=== PATIENT | female | born 1970 | race Caucasian/White ===

== ENCOUNTER 2017-04-23 17:20 | Emergency (ER) | payer BC, OTHER ==
[~2017-04-23] VITALS: Ht 162.6 cm; Wt 72.0 kg
[2017-04-23 17:27] VITALS: TEMP 36.9; Ht 162.6 cm; Wt 72.0 kg
[2017-04-23] MEDS ORDERED: AZITHROMYCIN 250 MG TAB PO STA (18:25)
[2017-04-23] MEDS ORDERED: CEFTRIAXONE SOD 350MG/ML 1 GM VIAL IM STA (18:25)
[2017-04-23 18:55] VITALS: BP 107/65; PULSE 73; O2SAT 99
--- NOTE | 2017-04-23 20:39 | EMERGENCY ROOM VISIT NOTE ---
History Report prepared by Fabrizio: Junie So Under the Supervision of: Dr. Idris Salazar D.O. 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 The patient was contacted today by her boyfriend. He informed her that his has been having intercourse with him while he is sleeping, possibly transmitting an STD. He has been having burning and discharge over the past week. They last had intercourse last night without a condom. She reports infrequent condom use. She has not had any symptoms herself. She denies any abdominal pain, vaginal discharge, vaginal bleeding, odor, urinary symptoms, headache, fever, chest pain, SOB, nausea, vomiting, or diarrhea. She denies any previous STDs. 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 Review of Systems See HPI for pertinent positives & negatives. A total of 10 systems reviewed and were otherwise negative. Past Medical & Surgical Medical Problems: (1) Migraines (2) Ovarian cyst Surgical Problems: (1) History of tubal ligation (2) S/P wrist surgery Family History FHx: cancer FHx: diabetes Hypertension Social History Smoking Status: Current Every Day Smoker Alcohol Use: none Marital Status: Housing Status: lives with friends Occupation Status: employed Current/Historical Medications No Active Prescriptions or Reported Meds Allergies Coded Allergies: No Known Allergies (Unverified , 06/30/15) Physical Exam Vital Signs Date Time Temp Pulse Resp B/P (MAP) Pulse Ox O2 Delivery O2 Flow Rate FiO2 04/23/17 18:55 73 16 107/65 99 Room Air 04/23/17 17:27 36.9 82 17 124/79 97 Room Air Physical Exam GENERAL: sitting up in bed, alert, well appearing, well nourished, no distress, non-toxic EYE EXAM: normal conjunctiva OROPHARYNX: no exudate, no erythema, lips, buccal mucosa, and tongue normal and mucous membranes are moist NECK: supple, no nuchal rigidity, no adenopathy, non-tender LUNGS: Clear to auscultation. Normal chest wall mechanics HEART: no murmurs, S1 normal and S2 normal ABDOMEN: abdomen soft, non-tender, normo-active bowel sounds, no masses, no rebound or guarding. : Normal external genitalia, normal vaginal mucosa. No cervical discharge. SKIN: no rashes and no bruising UPPER EXTREMITIES: upper extremities are grossly normal. LOWER EXTREMITIES: No pitting edema. NEURO EXAM: Normal sensorium Medical Decision & Procedures Laboratory Results Test 04/23/17 18:15 Date/Time Source Procedure Growth Status 04/23/17 18:15 Cervix Brushings Trichomonas Preparation - Final Complete Laboratory results per my review. Medications Administered Medications (Trade) Dose Ordered Sig/Chinedu Route Start Time Stop Time Status Last Admin Dose Admin Azithromycin (Zithromax Tab) 1,000 mg NOW STAT PO 04/23/17 18:25 04/23/17 18:26 DC 04/23/17 18:51 1,000 MG Ceftriaxone Sodium (Rocephin Im) 250 mg NOW STAT IM 04/23/17 18:25 04/23/17 18:26 DC 04/23/17 18:51 250 MG ED Course ED COURSE: Vital signs were reviewed and showed hypertension. The patients medical record was reviewed The above diagnostic studies were performed and reviewed. ED treatments and interventions as stated above. 1736: The student evaluated the patient at this time. We discussed findings, differentials, and treatment plan. 1755: The patient was evaluated in room A3. A complete history and physical examination was performed. 1825: Rocephin Im 250 mg IM, Azithromycin 1000 mg PO. 1826: Upon reevaluation, the patient is resting comfortably.I discussed my findings with the patient and she understands and agrees with the treatment plan. Based on the patients age, coexisting illnesses, exam and lab findings the decision to treat as an outpatient was made. The patient remained stable while under my care. The patient appeared well at the time of discharge. Medical Decision Differential diagnoses includes but is not limited to appendicitis, diverticulitis, small bowel obstruction, malignancy, hernia, urinary tract infection, torsion, and ectopic , perforation, trauma, infectious. Patient was a 47-year-old female who presents the ER for an STD check as she thinks one of her partners has an STD. She has no complains. No vaginal bleeding or vaginal discharge. Exam is completely benign. Cultures were sent. She preferred to be covered for chlamydia and GC. She was treated with IM Rocephin and oral is a throat. She is discharged follow-up with her PCP. Discussed with Pt concerning signs and symptoms to watch out for. Pt was instructed to follow up with their PCP and discussed with the patient their option to return to the ED at anytime for persistent or worsening symptoms. The appropriate anticipatory guidance and out-patient management, including indications for return to the emergency department, were explained at length to the patient and understood. Medication Reconcilliation Current Medication List: was personally reviewed by me Blood Pressure Screening Patient's blood pressure: Elevated blood pressure Blood pressure disposition: Elevated BP felt to be situational Impression Primary Impression: STD (female) Scribe Attestation The scribe's documentation has been prepared under my direction and personally reviewed by me in its entirety. I confirm that the note above accurately reflects all work, treatment, procedures, and medical decision making performed by me. Departure Information Dispostion Home / Self-Care Prescriptions No Active Prescriptions or Reported Meds Referrals Ro Valdes M.D. (MEDICAL) Forms HOME CARE DOCUMENTATION FORM, IMPORTANT VISIT INFORMATION, WORK / SCHOOL INSTRUCTIONS Patient Instructions Gonorrhea Culture Discharge, My [facility], STD Poss Additional Instructions Please follow up with your primary care doctor which includes any fevers about 100.4, persistent nausea vomiting, vaginal discharge, vaginal bleeding, pain with urination, or any other concerning signs or symptoms from your standpoint.
[2017-04-25 13:32] LABS: CHLAMYDIA TRACH RNA*** NOT DETECTED (NOT DETECTED); GC (NEIS GONORRHOEAE)RNA** NOT DETECTED (NOT DETECTED)
[2017-04-28] MEDS ORDERED: ASPEC325 PO (10:07)
[2017-04-28] MEDS ORDERED: LPT40 PO (10:07)
[2017-04-28] MEDS ORDERED: LPR25 PO (10:07)
[2017-05-23] MEDS ORDERED: ASPCH81X PO (13:07)
[2017-05-23] MEDS ORDERED: ATOR-26 PO (13:09)
[2017-05-23] MEDS ORDERED: NTRGSL/4 UT (13:09)
[2017-05-23] MEDS ORDERED: MULTTAB58 PO (13:09)
[2017-05-23] MEDS ORDERED: ANT25 PO (13:09)
[2017-05-23] MEDS ORDERED: CLOP1TAB15 PO (13:09)
== END 2017-04-23 19:09 | disposition home or self-care (01) ==
LOC: C.EDB 17:21 → C.EDA 19:09
DX: A64 Unspecified sexually transmitted disease (principal); F17.200 Nicotine dependence, unspecified, uncomplicated; Z98.51 Tubal ligation status; Z98.890 Other specified postprocedural states; Z83.3 Family history of diabetes mellitus; Z82.49 Family history of ischemic heart disease and other diseases of the circulatory system

== ENCOUNTER 2017-04-27 18:48 | Inpatient (IN) | payer BC ==
[~2017-04-27] VITALS: Ht 162.6 cm; Wt 77.1 kg
--- NOTE | 2017-04-27 19:37 | DIAGNOSTIC IMAGING REPORT ---
CHEST ONE VIEW PORTABLE CLINICAL HISTORY: 47 years-old Female presenting with chest pain. TECHNIQUE: Portable upright AP view of the chest was obtained. COMPARISON: 08/31/2015. FINDINGS: Cardiomediastinal silhouette normal. Lungs and pleural spaces clear. Osseous structures normal. Upper abdomen normal. IMPRESSION: 1. No acute cardiopulmonary disease. Electronically signed by: Sampson Glover M.D. 04/27/2017 7:36 PM Dictated Date/Time: 04/27/2017 7:35 PM
[2017-04-27 19:41] LABS: ALB/GLOB RATIO 0.9 (0.9-2); ALKALINE PHOSPHATASE 58 U/L (45-117); ALT/SGPT 29 U/L (12-78); BLOOD UREA NITROGEN 14 mg/dl (7-18); BUN/CREATININE RATIO 16.1 (10-20); CALCIUM 9.1 mg/dl (8.5-10.1); CARBON DIOXIDE 22 mmol/L (21-32); CHLORIDE 108 mmol/L (98-107); CREATININE 0.85 mg/dl (0.60-1.20); GLUCOSE 94 mg/dl (70-99); SODIUM 136 mmol/L (136-145)
--- NOTE | 2017-04-27 19:46 | EMERGENCY ROOM VISIT NOTE ---
History Report prepared by Fabrizio: Angel Mccormack Under the Supervision of: Dr. Otf Banks M.D. First contact with patient: 19:08 Chief Complaint: CHEST PAIN Stated Complaint: CHEST PAIN Nursing Triage Summary: Patient arrived via EMS from work. Patient reports chest pain onset at 1500 today at a 9/10 in intensity. Patient has had chest pain in the past with unknown cause and no known cardiac history. Patient reports l chest pain radiating to l armpit and jaw. Patient recieved 3 sprays of nitro which reduced chest pain to a 3/10 in intensity. History of Present Illness The patient is a 47 year old white female with a past medical history of asthma who presents to the ED with a cc of burning diffuse chest pain beginning 2 and a half hours ago. Positive worsening of pain with exertion or walking. Negative fevers, shortness of breath, jaw pain, arm pain, abnormal urinary symptoms, diarrhea, hematochezia, melena, diarrhea, calf pain, hormone use, or control. She was standing when the pain began. She does not have a history of blood clots or heart disease. She states that she is experiencing a lot of stressors in her life. She smokes 1.5 packs of cigarettes a day. She has a family history of cancer. Source of History: patient Onset: 2.5 hours ago Position: chest (diffuse) Symptom Intensity: mild Quality: burning Timing: constant Modifying Factors (Worsening): exertion, movement Associated Symptoms: No fevers, No SOB, No melena, No hematochezia, No diarrhea, No urinary symptoms Note: She denies arm pain or jaw pain. Review of Systems See HPI for pertinent positives and negatives. A total of ten systems were reviewed and were otherwise negative. Past Medical & Surgical Medical Problems: (1) ACS (acute coronary syndrome) (2) Asthma (3) Migraines (4) Ovarian cyst Surgical Problems: (1) History of tubal ligation (2) S/P wrist surgery Family History FHx: cancer FHx: diabetes Hypertension Social History Smoking Status: Current Every Day Smoker Alcohol Use: none Drug Use: none Marital Status: Housing Status: lives with friends Occupation Status: employed Current/Historical Medications Scheduled PRN Albuterol (Ventolin Hfa), 2 PUFFS INH Q4H PRN for SOB/Wheezing Xudiyug-Omdyjspstfkfc-Vrpwthlh (Excedrin Extra Strength), 1 TAB PO UD PRN for Headache Allergies Coded Allergies: No Known Allergies (Unverified , 04/27/17) Physical Exam Vital Signs Date Time Temp Pulse Resp B/P (MAP) Pulse Ox O2 Delivery O2 Flow Rate FiO2 04/27/17 22:04 67 16 118/71 100 Room Air 04/27/17 20:29 64 16 98/69 98 Room Air 04/27/17 19:09 66 04/27/17 19:01 100 Room Air 04/27/17 19:01 100 Room Air 04/27/17 18:57 100 Room Air 04/27/17 18:57 37.1 67 16 100/68 100 Room Air Physical Exam GENERAL: Awake, alert, ill-appearing, NAD HENT: Normocephalic, atraumatic. EYES: Normal conjunctiva. Sclera non-icteric. NECK: Supple. No nuchal rigidity. FROM. RESPIRATORY: CTAB, no rhonchi, wheezing, crackles CARDIAC: RRR, no MRG ABDOMEN: Soft, NTND, BS+ MSK: No reproducible chest wall TTP, no LE edema, negative Homans sign NEURO: GCS 15, CN 2-12 intact, moves all 4s on command SKIN: No rash or jaundice noted. Medical Decision & Procedures ER Provider Diagnostic Interpretation: Radiology results as stated below per my review and radiologist interpretation: CHEST ONE VIEW PORTABLE CLINICAL HISTORY: 47 years-old Female presenting with chest pain. TECHNIQUE: Portable upright AP view of the chest was obtained. COMPARISON: 08/31/2015. FINDINGS: Cardiomediastinal silhouette normal. Lungs and pleural spaces clear. Osseous structures normal. Upper abdomen normal. IMPRESSION: 1. No acute cardiopulmonary disease. Electronically signed by: Sampson Glover M.D. 04/27/2017 7:36 PM Dictated Date/Time: 04/27/2017 7:35 PM Laboratory Results 04/27/17 18:55 04/27/17 18:55 04/27/17 20:20 Test 04/27/17 18:55 04/27/17 19:05 04/27/17 20:20 04/27/17 22:17 Red Blood Count 4.29 M/uL (4.2-5.4) Mean Corpuscular Volume 92.5 fL (80-100) Mean Corpuscular Hemoglobin 32.2 pg (25-34) Mean Corpuscular Hemoglobin Concent 34.8 g/dl (32-36) RDW Standard Deviation 43.5 fL (36.4-46.3) RDW Coefficient of Variation 12.8 % (11.5-14.5) Mean Platelet Volume 11.8 fL (7.4-10.4) Anion Gap 6.0 mmol/L (3-11) BUN/Creatinine Ratio 16.1 (10-20) Calcium Level 9.1 mg/dl (8.5-10.1) Total Bilirubin 0.4 mg/dl (0.2-1) Alanine Aminotransferase (ALT/SGPT) 29 U/L (12-78) Alkaline Phosphatase 58 U/L (45-117) Total Creatine Kinase U/L (26-192) Creatine Kinase MB 1.7 ng/ml (0.5-3.6) Creatine Kinase MB Ratio (0-3.0) Total Protein 8.0 gm/dl (6.4-8.2) Albumin 3.7 gm/dl (3.4-5.0) Globulin 4.3 gm/dl (2.5-4.0) Albumin/Globulin Ratio 0.9 (0.9-2) Bedside Troponin I 0.030 ng/ml (0-0.045) Prothrombin Time 9.9 SECONDS (9.0-12.0) Prothromb Time International Ratio 0.9 (0.9-1.1) Activated Partial Thromboplast Time 24.2 SECONDS (21.0-31.0) Partial Thromboplastin Ratio 0.9 Venous Blood pH 7.40 (7.36-7.41) Venous Blood Partial Pressure CO2 41 mmHg (38.0-50.0) Venous Blood Partial Pressure O2 34 mmHg Venous Blood HCO3 25 mmol/L Venous Blood Oxygen Saturation 63.8 % Venous Blood Base Excess -0.1 mEq/L Est Creatinine Clear Calc Drug Dose 96.5 ml/min Estimated GFR () 111.6 Estimated GFR (Non- 96.3 Magnesium Level 2.2 mg/dl (1.8-2.4) Aspartate Amino Transf (AST/SGOT) 21 U/L (15-37) Troponin I 0.072 ng/ml (0-0.045) Lipase 202 U/L (73-393) Thyroid Stimulating Hormone (TSH) 0.461 uIu/ml (0.300-4.500) Lactic Acid Level 1.0 mmol/L (0.4-2.0) Human Chorionic Gonadotropin, Qual NEG (NEG) Laboratory results reviewed by me Medications Administered Medications (Trade) Dose Ordered Sig/Chinedu Route Start Time Stop Time Status Last Admin Dose Admin Sodium Chloride 500 ml @ 500 mls/hr Q1H ONCE IV 04/27/17 21:15 04/27/17 22:14 DC 04/27/17 21:15 500 MLS/HR Potassium Chloride (Klor-Con M10) 40 meq NOW STAT PO 04/27/17 21:05 04/27/17 21:09 DC 04/27/17 21:05 40 MEQ ECG Indication: chest pain Rate (beats per minute): 67 Rhythm: normal sinus, other (With sinus arrhythmia) Findings: ST depression (Mild in 3), T-wave inversion (AVF and 3), other ( Normal intervals, normal axis) Comparison ECG Date: 31 Aug 2015 Change: T-wave inversion in 3 is old. ED Course 1907: The patient was evaluated in room B5. A complete history and physical exam was performed. 2100: Upon reexamination, the patient was resting. I discussed the test results and treatment plan with her. The patient will be evaluated by Dr. Jinny Tucker Hospitalist, for further management. Medical Decision The patient is a 47 year old white female with a past medical history of asthma who presents to the ED with a cc of burning diffuse chest pain beginning 2 and a half hours ago. Positive worsening of pain with exertion or walking. Negative fevers, shortness of breath, jaw pain, arm pain, abnormal urinary symptoms, diarrhea, hematochezia, melena, diarrhea, calf pain, hormone use, or control. Triage Nursing notes reviewed. The patient's presentation and history were concerning for ACS, atypical chest pain, PE, GERD, costochondritis. Patient is a 47-year-old white female with a concerning story for chest pain. Patient did have dyspnea on exertion as well as diaphoresis with chest pain that radiated to the left upper extremity. Patient did receive full dose aspirin as well as nitroglycerin. The nitroglycerin helped relieve her pain. Patient's EKG was fairly benign patient did have T-wave inversions in lead 3 and aVF and 1 with T wave inversions was new. No other ST changes. Initial troponin was 0.03. The rest of the patient's workup was fairly unremarkable however given her story and risk factors that she is a smoker and possibly untreated hypertension or hyperlipidemia I spoke with the medicine service who agreed the patient will benefit from an ACS rule out further workup. Patient was admitted. Medication Reconcilliation Current Medication List: was personally reviewed by me Blood Pressure Screening Patient's blood pressure: Normal blood pressure Consults Time Called: 2054 Consulting Physician: Dr. Jinny Tucker Hospitalist Returned Call: [phone] Discussed the patient's case. The patient will be evaluated for further treatment and disposition. Impression Primary Impression: Atypical chest pain Additional Impression: Encounter for smoking cessation counseling Scribe Attestation The scribe's documentation has been prepared under my direction and personally reviewed by me in its entirety. I confirm that the note above accurately reflects all work, treatment, procedures, and medical decision making performed by me. Departure Information Dispostion Being Evaluated By Hospitalist Referrals Ro Valdes M.D. (MEDICAL) (PCP) Patient Instructions My [facility] Problem Qualifiers
[2017-04-27 20:28] LABS: HEMATOCRIT 39.7 % (37-47); MEAN CELL VOLUME 92.5 fL (80-100); MEAN CORPUSCULAR HEMOGLOBIN 32.2 pg (25-34); MEAN CORPUSCULAR HGB CONC 34.8 g/dl (32-36); MEAN PLATELET VOLUME 11.8 fL (7.4-10.4); PLATELET COUNT 271 K/uL (130-400); RED BLOOD COUNT 4.29 M/uL (4.2-5.4); WHITE BLOOD COUNT 11.34 K/uL (4.8-10.8)
[2017-04-27 20:38] LABS: VEN BLD GAS O2 SATURATION 63.8 %; VEN BLOOD GAS BASE EXCESS -0.1 mEq/L
[2017-04-27 20:50] LABS: CREATININE 0.75 mg/dl (0.60-1.20); POTASSIUM 3.7 mmol/L (3.5-5.1)
[2017-04-27 20:51] LABS: INR 0.9 (0.9-1.1); PARTIAL THROMBOPLASTIN RATIO 0.9; PROTHROMBIN TIME (PATIENT) 9.9 SECONDS (9.0-12.0)
[2017-04-27] MEDS ORDERED: POTASSIUM CHLORIDE 10 MEQ TABCR PO STA (21:05)
[2017-04-27] MEDS ORDERED: SODIUM CHLORIDE 0.9% 500ML 500 ML IV ONE (21:15)
[2017-04-27 21:49] LABS: MAGNESIUM 2.2 mg/dl (1.8-2.4); THYROID STIMULATING HORMONE 0.461 uIu/ml (0.300-4.500)
[2017-04-27] MEDS ORDERED: ASPI-391 PO (21:56)
[2017-04-27] MEDS ORDERED: PRVHFAIN INH (21:56)
--- NOTE | 2017-04-27 21:57 | History and Physical ---
History & Physical Date & Time of Service: Apr 27, 2017 at 21:31 Chief Complaint: Chest Pain Primary Care Physician: Ro Valdes M.D. (MEDICAL) History of Present Illness Source: patient, clinic records This is a 47 year old female with PMH of asthma, chronic smoker, obesity, who presents to the ED with chest pain. Pain has been intermittent x 1 week. She describes burning across the chest with radiation to left arm. Pain worsens with ambulating. Initially episodes would resolve with rest and deep breathing. Then today at 5 pm while at work had a chest pain episode radiating down left arm which did not resolve with rest. There was associated diaphoresis and heart racing. Pain lasted approximately 1 hour. She was transferred to ER via ambulance. Received 4 baby aspirin and 3 sublingual nitro en route which improved her pain from 05/21 to 1-10/21. She reports recent increased stress at work and home. Has chronic occasional dry cough. Has not required inhaler recently. Had reflux issues 3-4 months ago which resolved. Left ankle was swollen a few days ago which resolved. Has chronic cramping in both legs. Denies dizziness, SOB, vomiting. No heavy lifting. No recent travel. Denies hx of CAD, HTN, HL, DM. No prior stress test. Past Medical/Surgical History Medical Problems: (1) Asthma Status: Chronic (2) Migraines Status: Chronic (3) Ovarian cyst Status: Chronic Surgical Problems: (1) History of tubal ligation Status: Resolved (2) S/P wrist surgery Status: Resolved Family History FHx: cancer FHx: diabetes Hypertension Denies family history of heart disease. Social History Smoking Status: Current Every Day Smoker (1/2 ppd. not ready to quit due to stress. ) Alcohol Use: occasionally Drug Use: none Marital Status: Housing status: lives with family (with daughter and son at law. feels safe at home. ) Occupational Status: employed Multi-Drug Resistant Organisms History of MDRO: No Allergies Coded Allergies: No Known Allergies (Unverified , 04/27/17) Home Medications Scheduled Aspirin (Aspirin), 325 MG PO QAM Atorvastatin (Atorvastatin Calcium), 40 MG PO QAM Metoprolol Tartrate (Lopressor), 12.5 MG PO BID Scheduled PRN Albuterol (Ventolin Hfa), 2 PUFFS INH Q4H PRN for SOB/Wheezing Review of Systems Ten systems reviewed and negative except as noted in HPI. Physical Exam Vital Signs Date Time Temp Pulse Resp B/P (MAP) Pulse Ox O2 Delivery O2 Flow Rate FiO2 04/27/17 20:29 64 16 98/69 98 Room Air 04/27/17 19:09 66 04/27/17 19:01 100 Room Air 04/27/17 19:01 100 Room Air 04/27/17 18:57 100 Room Air 04/27/17 18:57 37.1 67 16 100/68 100 Room Air General Appearance: WD/WN, no apparent distress Head: normocephalic, atraumatic Eyes: normal inspection, EOMI, sclerae normal ENT: normal ENT inspection, hearing grossly normal Neck: supple, trachea midline Respiratory/Chest: chest non-tender, lungs clear, normal breath sounds, no respiratory distress, no accessory muscle use Cardiovascular: regular rate, rhythm, no murmur Abdomen/GI: normal bowel sounds, non tender, soft Extremities/Musculoskelatal: no calf tenderness, no pedal edema, + pertinent finding (no pain on ROM left shoulder) Neurologic/Psych: alert, oriented x 3 Skin: normal color, warm/dry, no rash (no rash on the chest) Diagnostics Laboratory Results Results Past 24 Hours Test 04/27/17 18:55 04/27/17 19:05 04/27/17 20:20 04/27/17 21:05 Range/Units White Blood Count 11.34 4.8-10.8 K/uL Red Blood Count 4.29 4.2-5.4 M/uL Hemoglobin 13.8 12.0-16.0 g/dL Hematocrit 39.7 37-47 % Mean Corpuscular Volume 92.5 80-100 fL Mean Corpuscular Hemoglobin 32.2 25-34 pg Mean Corpuscular Hemoglobin Concent 34.8 32-36 g/dl RDW Standard Deviation 43.5 36.4-46.3 fL RDW Coefficient of Variation 12.8 11.5-14.5 % Platelet Count 271 130-400 K/uL Mean Platelet Volume 11.8 7.4-10.4 fL Sodium Level 136 136-145 mmol/L Potassium Level 3.7 3.5-5.1 mmol/L Chloride Level 108 98-107 mmol/L Carbon Dioxide Level 22 21-32 mmol/L Anion Gap 6.0 3-11 mmol/L Blood Urea Nitrogen 14 7-18 mg/dl Creatinine 0.85 0.75 0.60-1.20 mg/dl Est Creatinine Clear Calc Drug Dose 85.1 96.5 ml/min Estimated GFR () 95.9 111.6 Estimated GFR (Non- 82.8 96.3 BUN/Creatinine Ratio 16.1 10-20 Random Glucose 94 70-99 mg/dl Calcium Level 9.1 8.5-10.1 mg/dl Total Bilirubin 0.4 0.2-1 mg/dl Aspartate Amino Transf (AST/SGOT) 21 15-37 U/L Alanine Aminotransferase (ALT/SGPT) 29 12-78 U/L Alkaline Phosphatase 58 45-117 U/L Total Creatine Kinase 26-192 U/L Creatine Kinase MB 1.7 0.5-3.6 ng/ml Creatine Kinase MB Ratio 0-3.0 Total Protein 8.0 6.4-8.2 gm/dl Albumin 3.7 3.4-5.0 gm/dl Globulin 4.3 2.5-4.0 gm/dl Albumin/Globulin Ratio 0.9 0.9-2 Bedside Troponin I 0.030 0-0.045 ng/ml Prothrombin Time 9.9 9.0-12.0 SECONDS Prothromb Time International Ratio 0.9 0.9-1.1 Activated Partial Thromboplast Time 24.2 21.0-31.0 SECONDS Partial Thromboplastin Ratio 0.9 Venous Blood pH 7.40 7.36-7.41 Venous Blood Partial Pressure CO2 41 38.0-50.0 mmHg Venous Blood Partial Pressure O2 34 mmHg Venous Blood HCO3 25 mmol/L Venous Blood Oxygen Saturation 63.8 % Venous Blood Base Excess -0.1 mEq/L Test 04/27/17 21:09 Range/Units Diagnostic Radiology CHEST ONE VIEW PORTABLE CLINICAL HISTORY: 47 years-old Female presenting with chest pain. TECHNIQUE: Portable upright AP view of the chest was obtained. COMPARISON: 08/31/2015. FINDINGS: Cardiomediastinal silhouette normal. Lungs and pleural spaces clear. Osseous structures normal. Upper abdomen normal. IMPRESSION: 1. No acute cardiopulmonary disease. EKG sinus rhythm with sinus arrhythmia, 67 bpm, T wave inversion in III (worsened) and aVF (new), less than [address] depression in V3-V4 (new) Impression Assessment and Plan CHEST PAIN Relieved with nitro R/o ACS; risk factors include smoking, obesity; additional ddx include GERD and anxiety Initial troponin negative EKG- nonspecific ST and T wave abnormalities- new CXR-unremarkable Trend serial cardiac enzymes Possible stress test in am ASTHMA Not in exacerbation DISPOSITION Follows with Dr. Valdes for primary care Patient seen in collaboration with Dr. Stearns. Please see his addendum for additional recommendations. Assessment/Plan IM ATTENDING : Patient seen and examined. History obtained from patient and records. Preceding documentation by Ms. Scarlett Charlton PA-C, reviewed. FINAL ASSESSMENT AND PLAN as follows: 1. Acute coronary syndrome. Female patient presenting with classic exertional anginal pain, intermittent symptoms over the last week, relieved by nitro Second troponin noted to be 0.07 2. ongoing tobacco abuse. PCU. Aspirin for CAD prevention. Initiate low-dose beta-drea, low-dose IV heparin follow cardiac markers, check lipid profile 2D echo, cardiac consult RE chest pain, ACS Nicotine patch. DVT prophylaxis, Heparin. Full code.
[2017-04-27] MEDS ORDERED: METOPROLOL TARTRATE 25 MG TAB PO ONE (22:40)
[2017-04-27] MEDS ORDERED: HEPARIN IV LOW DOSE NO BOLUS STA (22:40)
[2017-04-27 22:50] LABS: PREG INTERNAL NEGATIVE QC NEG CLEAR BACKGROUND; PREG INTERNAL POSITIVE QC POS CONTROL LINE
[2017-04-27] MEDS ORDERED: HEPARIN 25000 UNIT/500 ML D5W ONE (23:07)
[2017-04-27] MEDS ORDERED: MoRPHine SULFATE 4 MG/ML 1 ML CARP\\VIAL IV PRN (23:15)
[2017-04-27] MEDS ORDERED: LORAZEPAM 2 MG/ML 1 ML VIAL IV PRN (23:15)
[2017-04-27] MEDS ORDERED: NITROGLYCERIN 0.4 MG SL PER TAB CHARGE SL PRN (23:15)
[2017-04-27] MEDS ORDERED: TRAMADOL HCL 50 MG TAB PO PRN (23:15)
[2017-04-27] MEDS ORDERED: ONDANSETRON INJ 2 MG/ML 2 ML VIAL IV PRN (23:15)
[2017-04-27] MEDS ORDERED: METOPROLOL TARTRATE 50 MG TAB ONE (23:35)
[2017-04-28 00:13] VITALS: BP 104/68; PULSE 81; TEMP 36.6; O2SAT 98; Ht 162.6 cm; Wt 77.1 kg
[2017-04-28] MEDS ORDERED: HEPARIN 25,000 UNIT/500ML D5W 500 ML IV PRN (02:00)
[2017-04-28] MEDS ORDERED: NSS + 20MEQ KCL 1000ML 1,000 ML IV SCH (03:00)
[2017-04-28] MEDS ORDERED: LORAZEPAM INJ 0.5 MG in SYRINGE 0.75 ML IV PRN (03:15)
[2017-04-28 04:57] VITALS: BP 94/60; PULSE 61; TEMP 36.4; O2SAT 97
[2017-04-28 05:29] LABS: BASO % 0.4 %; BASO ABS # 0.03 K/uL (0-0.2); COMPLETE YES; EOS % 2.4 %; HEMATOCRIT 34.5 % (37-47); IG% 0.1 %; LYMPH % 41.3 %; LYMPH ABS # 2.94 K/uL (1.2-3.4); MEAN CELL VOLUME 92.7 fL (80-100); MEAN CORPUSCULAR HEMOGLOBIN 31.2 pg (25-34); MEAN CORPUSCULAR HGB CONC 33.6 g/dl (32-36); MEAN PLATELET VOLUME 10.9 fL (7.4-10.4); MONO % 6.7 %; NEUT % 49.1 %; PLATELET COUNT 204 K/uL (130-400); RED BLOOD COUNT 3.72 M/uL (4.2-5.4); WHITE BLOOD COUNT 7.12 K/uL (4.8-10.8)
[2017-04-28 05:38] LABS: PARTIAL THROMBOPLASTIN RATIO 1.3
[2017-04-28 05:53] LABS: BUN/CREATININE RATIO 17.2 (10-20); CREATININE 0.6 mg/dl (0.60-1.20)
[2017-04-28 06:05] LABS: CHOLESTEROL/HDL RATIO 3.3
--- NOTE | 2017-04-28 06:38 | HISTORY & PHYSICAL EXAMINATION ---
DATE OF ADMISSION: 04/27/2017 IM ATTENDING : Patient seen and examined. History obtained from patient and records. Preceding documentation by Ms. Scarlett Charlton PA-C, reviewed. FINAL ASSESSMENT AND PLAN as follows: 1. Acute coronary syndrome. Female patient presenting with classic exertional anginal pain, intermittent symptoms over the last week, relieved by nitro Second troponin noted to be 0.07 2. ongoing tobacco abuse. PCU. Aspirin for CAD prevention. Initiate low-dose beta-drea, low-dose IV heparin 2D echo, cardiac consult RE chest pain, ACS Lipid profile Nicotine patch. DVT prophylaxis, Heparin. Full code. MTDD
[2017-04-28] MEDS ORDERED: HEPARIN IV BOLUS 4,000 UNIT in SYRINGE 0 ML IV ONE (07:00)
--- NOTE | 2017-04-28 07:37 | Progress Note ---
Subjective Date of Service: Apr 28, 2017. Subjective Pt evaluation today including: conversation w/ patient, physical exam, lab review, review of studies, conversation w/ financial management consultant, review of inpatient medication list Saw/examined the patient in room 230 Doing well currently She came to the ER due to chest pain/burning which radiated to her left arm Currently, chest pain free No other symptoms at this time Problem List Medical Problems: (1) Atypical chest pain Status: Acute (2) Encounter for smoking cessation counseling Status: Acute (3) STD (female) Status: Acute Review of Systems Constitutional: No fever, No chills Respiratory: No cough, No sputum, No shortness of breath Cardiac: + see HPI, No chest pain (improved), No edema, No palpitations Abdomen: No pain, No nausea, No vomiting, No diarrhea, No constipation, No GI bleeding Musculoskeletal: No joint pain Heme: No abnormal bleeding/bruising Medications Current Inpatient Medications Medications (Trade) Dose Ordered Sig/Chinedu Route Start Time Stop Time Status Last Admin Dose Admin Metoprolol Tartrate (Lopressor Tab) 12.5 mg BID PO 04/28/17 09:00 05/28/17 08:59 04/28/17 08:30 12.5 MG Potassium Chloride/Sodium Chloride 1,000 ml @ 75 mls/hr [id number] IV 04/28/17 03:00 05/28/17 02:59 04/28/17 03:06 75 MLS/HR Nitroglycerin (Nitrostat Tab) 0.4 mg UD PRN SL 04/27/17 23:15 05/27/17 23:14 Aspirin (Ecotrin Tab) 325 mg QAM PO 04/28/17 09:00 05/28/17 08:59 04/28/17 08:29 325 MG Nicotine (Nicoderm Cq 14MG Patch) 1 patch QAM TD 04/28/17 09:00 05/28/17 08:59 Morphine Sulfate (MoRPHine SULFATE INJ) 4 mg Q3H PRN IV 04/27/17 23:15 05/11/17 23:14 Lorazepam (Ativan Inj) 0.5 mg Q4H PRN IV 04/27/17 23:15 05/27/17 23:14 Tramadol HCl (Ultram Tab) 25 mg Q6H PRN PO 04/27/17 23:15 05/27/17 23:14 Miscellaneous (Remove Nicoderm Patch) 1 ea HS N/A 04/28/17 21:00 05/28/17 20:59 Ondansetron HCl (Zofran Inj) 4 mg Q6H PRN IV 04/27/17 23:15 05/27/17 23:14 Heparin Sodium/ Dextrose 500 ml @ 18 mls/hr Q24H PRN IV 04/28/17 02:00 05/28/17 01:59 04/28/17 06:56 18 MLS/HR Lorazepam 0.5 mg/ Syringe 1 ml @ 1 mls/min Q4H PRN IV 04/28/17 03:15 05/28/17 03:14 Atorvastatin Calcium (Lipitor Tab) 40 mg QAM PO 04/28/17 10:00 05/28/17 09:59 Objective Vital Signs Date Time Temp Pulse Resp B/P (MAP) Pulse Ox O2 Delivery O2 Flow Rate FiO2 04/28/17 04:57 36.4 61 17 94/60 (71) 97 Room Air 04/28/17 04:00 Room Air 04/28/17 04:00 Room Air 04/28/17 00:13 36.6 81 17 104/68 98 Room Air 04/27/17 23:52 69 16 127/76 98 Room Air 04/27/17 22:52 64 04/27/17 22:04 67 16 118/71 100 Room Air 04/27/17 20:29 64 16 98/69 98 Room Air 04/27/17 19:09 66 04/27/17 19:01 100 Room Air 04/27/17 19:01 100 Room Air 04/27/17 18:57 100 Room Air 04/27/17 18:57 37.1 67 16 100/68 100 Room Air Physical Exam General Appearance: no apparent distress Respiratory/Chest: chest non-tender, lungs clear, normal breath sounds, no respiratory distress, no accessory muscle use Cardiovascular: regular rate, rhythm, no edema, no gallop, no JVD, no murmur Abdomen: normal bowel sounds, non tender, soft Extremities: normal inspection, no pedal edema Neurologic/Psychiatric: no motor/sensory deficits, alert, normal mood/affect Laboratory Results Last 24 Hours Test 04/27/17 18:55 04/27/17 19:05 04/27/17 20:20 04/27/17 22:17 White Blood Count 11.34 K/uL Red Blood Count 4.29 M/uL Hemoglobin 13.8 g/dL Hematocrit 39.7 % Mean Corpuscular Volume 92.5 fL Mean Corpuscular Hemoglobin 32.2 pg Mean Corpuscular Hemoglobin Concent 34.8 g/dl RDW Standard Deviation 43.5 fL RDW Coefficient of Variation 12.8 % Platelet Count 271 K/uL Mean Platelet Volume 11.8 fL Sodium Level 136 mmol/L Potassium Level mmol/L 3.7 mmol/L Chloride Level 108 mmol/L Carbon Dioxide Level 22 mmol/L Anion Gap 6.0 mmol/L Blood Urea Nitrogen 14 mg/dl Creatinine 0.85 mg/dl 0.75 mg/dl Est Creatinine Clear Calc Drug Dose 85.1 ml/min 96.5 ml/min Estimated GFR () 95.9 111.6 Estimated GFR (Non- 82.8 96.3 BUN/Creatinine Ratio 16.1 Random Glucose 94 mg/dl Calcium Level 9.1 mg/dl Total Bilirubin 0.4 mg/dl Aspartate Amino Transf (AST/SGOT) U/L 21 U/L Alanine Aminotransferase (ALT/SGPT) 29 U/L Alkaline Phosphatase 58 U/L Total Creatine Kinase U/L Creatine Kinase MB 1.7 ng/ml Creatine Kinase MB Ratio Total Protein 8.0 gm/dl Albumin 3.7 gm/dl Globulin 4.3 gm/dl Albumin/Globulin Ratio 0.9 Bedside Troponin I 0.030 ng/ml Prothrombin Time 9.9 SECONDS Prothromb Time International Ratio 0.9 Activated Partial Thromboplast Time 24.2 SECONDS Partial Thromboplastin Ratio 0.9 Venous Blood pH 7.40 Venous Blood Partial Pressure CO2 41 mmHg Venous Blood Partial Pressure O2 34 mmHg Venous Blood HCO3 25 mmol/L Venous Blood Oxygen Saturation 63.8 % Venous Blood Base Excess -0.1 mEq/L Magnesium Level 2.2 mg/dl Troponin I 0.072 ng/ml Lipase 202 U/L Thyroid Stimulating Hormone (TSH) 0.461 uIu/ml Lactic Acid Level 1.0 mmol/L Human Chorionic Gonadotropin, Qual NEG Test 04/28/17 05:18 White Blood Count 7.12 K/uL Red Blood Count 3.72 M/uL Hemoglobin 11.6 g/dL Hematocrit 34.5 % Mean Corpuscular Volume 92.7 fL Mean Corpuscular Hemoglobin 31.2 pg Mean Corpuscular Hemoglobin Concent 33.6 g/dl Platelet Count 204 K/uL Mean Platelet Volume 10.9 fL Neutrophils (%) (Auto) 49.1 % Lymphocytes (%) (Auto) 41.3 % Monocytes (%) (Auto) 6.7 % Eosinophils (%) (Auto) 2.4 % Basophils (%) (Auto) 0.4 % Neutrophils # (Auto) 3.49 K/uL Lymphocytes # (Auto) 2.94 K/uL Monocytes # (Auto) 0.48 K/uL Eosinophils # (Auto) 0.17 K/uL Basophils # (Auto) 0.03 K/uL RDW Standard Deviation 43.7 fL RDW Coefficient of Variation 12.9 % Immature Granulocyte % (Auto) 0.1 % Immature Granulocyte # (Auto) 0.01 K/uL Activated Partial Thromboplast Time 33.1 SECONDS Partial Thromboplastin Ratio 1.3 Sodium Level 140 mmol/L Potassium Level 4.0 mmol/L Chloride Level 113 mmol/L Carbon Dioxide Level 23 mmol/L Anion Gap 4.0 mmol/L Blood Urea Nitrogen 10 mg/dl Creatinine 0.60 mg/dl Est Creatinine Clear Calc Drug Dose 119.0 ml/min Estimated GFR () 127.6 Estimated GFR (Non- 110.1 BUN/Creatinine Ratio 17.2 Random Glucose 83 mg/dl Calcium Level 8.0 mg/dl Troponin I 0.167 ng/ml Triglycerides Level 53 mg/dl Cholesterol Level 158 mg/dl HDL Cholesterol 48 mg/dl LDL Cholesterol, Calculated 99 mg/dl VLDL Cholesterol, Calculated 11 mg/dl Cholesterol/HDL Ratio 3.3 Assessment and Plan This is a 47 year old female with a PMH of tobacco use disorder, asthma presents with chest pain with radiation and subsequently found to have elevated troponin level NSTEMI patient presented with chest pain with radiation to the jaw and LUE troponin elevation noted; 0.07 --> 0.167 EKG shows some T-wave inversion - Lead III and aVF started on aspirin and b-drea heparin drip started echo pending appreciate cardiology input - plan is to transfer to [facility] [place] to the chemical lab supervisor no beds available - attempting to transfer directly to the chemical lab supervisor Tobacco Use Disorder counseled on tobacco cessation patient agreeable currently states she does not need a nicotine patch DVT ppx heparin drip FULL CODE
[2017-04-28 07:51] VITALS: BP 93/60; PULSE 61; TEMP 37; O2SAT 97
[2017-04-28 08:30] VITALS: BP 104/61; PULSE 72
[2017-04-28] MEDS ORDERED: PERFLUTREN LIPID MICROSPHERE (DEFINITY) IV ONE (08:48)
[2017-04-28] MEDS ORDERED: ASPIRIN 325 MG ECTAB PO SCH (09:00)
[2017-04-28] MEDS ORDERED: NICOTINE 14 MG/24 HR TDSY TD SCH (09:00)
[2017-04-28] MEDS ORDERED: METOPROLOL TARTRATE 25 MG TAB PO SCH (09:00)
--- NOTE | 2017-04-28 09:08 | Cardiology Consultation ---
Cardiology Consultation Date of Consultation: Apr 28, 2017 History of Present Illness Frances is a 47 year old female seen in cardiology consultation per the request of Dr. Ryan for the evaluation of chest discomfort. The patient states that she was in her normal state of health until about a week ago when she started having symptoms of intermittent exertional burning in her chest. It started with walking at work. On Monday she was at a convenience store and while standing at the gas pump after walking out of the store she felt burning that radiated to her left arm and jaw that was relieved with rest. Yesterday, , she was at work and was underneath her desk changing some computer plugs when the chest burning came back. It persisted despite her relaxing ultimately she was transferred from her place of employment to the emergency department by ambulance. The patient states she received 3 sublingual nitroglycerin delivered by emergency medical services while she was being transferred to the emergency room which resolved her discomfort and she has been pain-free overnight. Her initial troponin was negative upon arrival. Initial EKG revealed sinus rhythm at 67 bpm with mild nonspecific ST changes in the anteroseptal and inferior leads. Follow-up EKG this morning 04/28/17 at 6:38 AM reveals progressive ischemic changes with new T-wave inversions in leads V2 to V4 as well as mild ST changes in the inferior leads. The patient's [id number]-[id number] troponin was negative on arrival yesterday, however she has had 2 mild elevations on subsequent readings of 0.072 and0.167 and she per mL on 2 subsequent readings most recent of which took place at 518 this morning. The patient was treated with unfractionated heparin overnight At present she continues to be free of recurrent angina. Transthoracic echocardiogram has been performed the results of which are pending at the time of this report. Telemetry reveals stable sinus rhythm. 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 A total of 10 systems reviewed and were otherwise negative. Allergies Coded Allergies: No Known Allergies (Unverified , 04/27/17) Medications Reported Home Medications Medications Dose Route/Sig Max Daily Dose Days Date Category Excedrin Extra Strength (Qqvdmjo-Orhujtbmrmeru-Nevpvuqg) 1 Tab Tab 1 Tab PO UD PRN 04/27/17 Reported Ventolin Hfa (Albuterol) 60 Puffs/5400 Mcg Aers 2 Puffs INH Q4H PRN 04/27/17 Reported Physical Exam Vital Signs (Last 8hrs): Last 8 Hrs Date Time Temp Pulse Resp B/P (MAP) Pulse Ox O2 Delivery O2 Flow Rate FiO2 04/28/17 07:51 37.0 61 20 93/60 (71) 97 Room Air 04/28/17 04:57 36.4 61 17 94/60 (71) 97 Room Air 04/28/17 04:00 Room Air 04/28/17 04:00 Room Air General Appearance: Alert and Oriented x3. NAD. Head: Normocephalic Atraumatic. Eyes: PERRLA, EOMI, conjunctiva and sclera clear Neck: Supple. No carotid bruits noted. No JVD. No HJD. Respiratory: Breath sounds clear to auscultation bilaterally. No w/r/r. Cardiovascular: Reg rate and rhythm. S1 and S2 noted. No murmurs, rubs, gallops. PMI non displace. Abdomen: Normal bowel sounds, soft nontender. no abdominal bruits. Extremities: No edema, no clubbing or cyanosis. distal pulses 2/4 bilaterally. Neuro: No focal deficits. Psychiatric: Normal affect. Data Last Resulted 04/28/17 05:18 Red Blood Count 3.72, Mean Corpuscular Volume 92.7, Mean Corpuscular Hemoglobin 31.2, Mean Corpuscular Hemoglobin Concent 33.6, Mean Platelet Volume 10.9, Neutrophils (%) (Auto) 49.1, Lymphocytes (%) (Auto) 41.3, Monocytes (%) (Auto) 6.7, Eosinophils (%) (Auto) 2.4, Basophils (%) (Auto) 0.4, Neutrophils # (Auto) 3.49, Lymphocytes # (Auto) 2.94, Monocytes # (Auto) 0.48, Eosinophils # (Auto) 0.17, Basophils # (Auto) 0.03 Last Resulted 04/28/17 05:18 Past 24 Hours Test 04/27/17 18:55 04/27/17 20:20 8/18/17 05:18 Range/Units Creatine Kinase MB 1.7 0.5-3.6 ng/ml Creatine Kinase MB Ratio 0-3.0 Total Creatine Kinase 26-192 U/L Prothromb Time International Ratio 0.9 0.9-1.1 Prothrombin Time 9.9 9.0-12.0 SECONDS Troponin I 0.072 *H 0.167 *H 0-0.045 ng/ml EKG as summarized above. Assessment & Plan Impression: 47 year old female 1. NSTEMI, symptom free at present. 2. Cigarette smoking 3. Family history of ischemic heart disease Plan: Continue ASA, metoprolol 12.5 mg BID, atorvastatin (added , although baseline LDL is 99 mg/dl -requires intensive statin therapy). Patient symptom free now. Recommend cardiac catheterization today if possible, however, limited by weather conditions. Per CT protocols for our stand-alone angioplasty facility, require care support in order to do elective stenting, and due to weather conditions are support is not available at present. I discussed case with Dr. Edwards of cardiology at [facility], and I'm attempting to arrange acute transfer by ACLS ground for cardiac catheterization tertiary center today, however there is no bed available at present, and so therefore, I am awaiting a call back to see if we can transfer patient directly to the catheterization laboratory at [facility]. Will keep pt NPO except medication, and follow up. Hopeful transfer soon. Patient is agreeable to the plan. Michelle James,
--- NOTE | 2017-04-28 09:50 | ECHOCARDIOGRAM REPORT ---
*NOTICE TO RECEIVING CONSTITUTION PARTY AGENCY This information is strictly Confidential and protected under [place] law. [place] law prohibits you from making any further disclosure of this information unless further disclosure is expressly permitted by the written consent of the person to whom it pertains or is authorized by law. A general authorization for the release of medical or other information is not sufficient for this purpose. Hospital accepts no responsibility if the information is made available to any other person, INCLUDING THE PATIENT. Interpretation Summary * Name: VALERIY HOWARD Study Date: 04/28/2017 06:57 AM BP: 94/60 mmHg * Patient Location: C.2T\S\S230\S\1 HR: 66 * : 1970 (M/d/yyyy) Gender: Female Height: 64 in * Age: 47 yrs Ethnicity: CA Weight: 174 lb * Ordering Physician: Ted Stearns * Referring Physician: Self, Referred * Performed By: Leandra Elmore RDCS * * Reason For Study: OK * BSA: 1.8 m2 * The study was technically adequate. * -- Conclusions -- * There is a small sized anterior wall motion abnormality with hypokinesis of the segments. * The LV Ejection Fraction = 55-60%. * The right ventricular chamber size and systolic function are normal. * There is no significant valvular disease. Procedure Details * A complete two-dimensional transthoracic echocardiogram was performed (2D, M-mode, Doppler and color flow Doppler). * A contrast injection of Definity was performed to improve assessment of LV function. * Contrast was injected into an intravenous site in the left arm. * One vial of Definity ultrasound contrast was diluted in normal saline to a total volume of 10 ml. A total of '4' ml of solution was administered during imaging. * Lot # [id number] of Definity utilized for procedure. * Expiration date apr 28. * The attending nurse who injected the contrast agent was Gudelia Steiner RN. Left Ventricle * The left ventricle is normal in size. * There is normal left ventricular wall thickness. * Ejection Fraction = 55-60%. * Left ventricular systolic function is normal. * There is a small sized anterior wall motion abnormality with hypokinesis of the segments. Right Ventricle * The right ventricle is normal size. * The right ventricular systolic function is normal as assessed by tricuspid annular plane systolic excursion (TAPSE) (normal >1.5 cm). Atria * The left atrial size is normal. * Right atrial size is normal. * There is no evidence of atrial septal defect, but resolution does not allow assessment for a patent foramen ovale. Mitral Valve * The mitral valve is normal. * There is no mitral valve stenosis. * Significant mitral regurgitation is absent. Tricuspid Valve * The tricuspid valve is normal. * There is no tricuspid stenosis. * Significant tricuspid regurgitation is absent. * Doppler findings do not suggest pulmonary hypertension. Aortic Valve * The aortic valve is trileaflet. * Aortic stenosis is absent. * There is no significant aortic regurgitation. Pulmonic Valve * The pulmonary valve is not well seen, but the Doppler examination is normal without significant regurgitation or stenosis. Great Vessels * The aortic root and proximal ascending aorta are normal sized. Pericardium/Pleural * There is no pericardial effusion. Great Vessels * Normal inferior vena cava diameter and respiratory variation suggests normal central venous pressure. Left Ventricular Diastolic Function * Grade I diastolic dysfunction, (abnormal relaxation pattern). MMode 2D Measurements and Calculations IVSd 0.67 cm LVIDd 5.0 cm LVIDs 3.6 cm LVPWd 0.74 cm IVS/LVPW 0.91 FS 29.1 % EDV(Teich) 120.0 ml ESV(Teich) 53.3 ml EF(Teich) 55.6 % EDV(cubed) 127.3 ml ESV(cubed) 45.4 ml EF(cubed) 64.3 % LV mass(C)d 117.4 grams LV mass(C)dI 63.7 grams/m\S\2 SV(Teich) 66.7 ml SI(Teich) 36.2 ml/m\S\2 SV(cubed) 81.9 ml SI(cubed) 44.4 ml/m\S\2 Ao root diam 2.8 cm Ao root area 6.1 cm\S\2 ACS 1.8 cm LA dimension 3.1 cm asc Aorta Diam 2.3 cm LA/Ao 1.1 LVOT diam 1.9 cm LVOT area 2.9 cm\S\2 LVAd ap4 28.9 cm\S\2 LVLd ap4 7.4 cm EDV(MOD-sp4) 92.1 ml EDV(sp4-el) 95.4 ml LVAs ap4 15.2 cm\S\2 LVLs ap4 5.4 cm ESV(MOD-sp4) 35.6 ml ESV(sp4-el) 36.3 ml EF(MOD-sp4) 61.3 % EF(sp4-el) 61.9 % LVAd ap2 28.1 cm\S\2 LVLd ap2 6.9 cm EDV(MOD-sp2) 96.2 ml EDV(sp2-el) 96.9 ml LVAs ap2 16.5 cm\S\2 LVLs ap2 5.4 cm ESV(MOD-sp2) 40.8 ml ESV(sp2-el) 42.7 ml EF(MOD-sp2) 57.6 % EF(sp2-el) 56.0 % LVLd %diff -6.83 % EDV(MOD-bp) 96.9 ml LVLs %diff 0.54 % ESV(MOD-bp) 38.6 ml EF(MOD-bp) 60.2 % SV(MOD-sp4) 56.5 ml SI(MOD-sp4) 30.6 ml/m\S\2 SV(MOD-sp2) 55.4 ml SI(MOD-sp2) 30.1 ml/m\S\2 SV(MOD-bp) 58.3 ml SI(MOD-bp) 31.6 ml/m\S\2 SV(sp4-el) 59.1 ml SI(sp4-el) 32.0 ml/m\S\2 SV(sp2-el) 54.3 ml SI(sp2-el) 29.4 ml/m\S\2 Doppler Measurements and Calculations MV E max terry 87.4 cm/sec MV A max terry 87.9 cm/sec MV E/A 0.99 MV dec time 0.20 sec Ao V2 max 144.8 cm/sec Ao max PG 8.4 mmHg Ao max PG (full) 4.6 mmHg SHAI(V,A) 1.9 cm\S\2 SHAI(V,D) 1.9 cm\S\2 LV V1 max PG 3.8 mmHg LV V1 max 97.7 cm/sec PA V2 max 91.2 cm/sec PA max PG 3.3 mmHg PA acc slope 294.4 cm/sec\S\2 PA acc time 0.21 sec TR max terry 228.0 cm/sec PA pr(Accel) -16.07 mmHg
[2017-04-28] MEDS ORDERED: ATORVASTATIN 40 MG TAB PO SCH (10:00)
[2017-04-28] MEDS ORDERED: ASPEC325 PO (10:07)
[2017-04-28] MEDS ORDERED: LPR25 PO (10:07)
[2017-04-28] MEDS ORDERED: LPT40 PO (10:07)
[2017-04-28 10:08] VITALS: BP 104/61; PULSE 72; TEMP 37; O2SAT 97
--- NOTE | 2017-04-28 10:10 | Discharge Instructions ---
Discharge Instructions Date of Service Apr 28, 2017. Admission Reason for Admission: Acs (Acute Coronary Syndrome) Discharge Discharge Diagnosis / Problem: NSTEMI Discharge Goals Goal(s): Decrease discomfort, Improve function, Diagnostic testing, Therapeutic intervention Activity Recommendations Activity Level: Up Ad Alicia . Additional Information Patient informed of condition: Yes Advance Directives: No DNR: No Level of Care: Other Communicable Disease: No Prognosis: Stable Instructions / Follow-Up Instructions / Follow-Up To be transferred to [facility] for cardiac cath continue IV heparin on transfer; transfer via ALS aspirin, statin, metoprolol Current Hospital Diet Patient's current hospital diet: Regular Diet Discharge Diet Recommended Diet: N/A (NPO for now) Pending Studies Studies pending at discharge: no Laboratory Results Lipid Panel Test 04/28/17 05:18 Range/Units Triglycerides Level 53 0-150 mg/dl Cholesterol Level 158 0-200 mg/dl HDL Cholesterol 48 mg/dl Cholesterol/HDL Ratio 3.3 LDL Cholesterol, Calculated 99 mg/dl Medical Emergencies . Who to Call and When: Medical Emergencies: If at any time you feel your situation is an emergency, please call 911 immediately. . Non-Emergent Contact Non-Emergency issues call your: Primary Care Provider, [facility] . . "Provider Documentation" section prepared by Jacquelyn Leong. . Core Measure Problem Core Measures: AMI AMI Core Measures Reason no ASA as I/P: Treatment provided - N/A Reason no ASA at D/C: Treatment provided - N/A Reason no statin as I/P: Treatment provided - N/A Reason no statin at D/C: Treatment provided - N/A
--- NOTE | 2017-04-28 10:12 | Discharge Summary ---
Discharge Summary Date of Service Apr 28, 2017. Discharge Summary Admission Date: Apr 27, 2017 at 22:22 Discharge Date: Apr 28, 2017 Discharge Disposition: Acute care facility Principal Diagnosis: NSTEMI Medication Reconciliation New Medications: Aspirin (Aspirin) 325 Mg Ectab 325 MG PO QAM for 30 Days Atorvastatin (Atorvastatin Calcium) 40 Mg Tab 40 MG PO QAM for 30 Days, #30 TAB Metoprolol Tartrate (Lopressor) 25 Mg Tab 12.5 MG PO BID for 30 Days, #30 TAB Continued Medications: Albuterol (Ventolin Hfa) 60 Puffs/5400 Mcg Aers 2 PUFFS INH Q4H PRN for SOB/Wheezing Admission Information HPI (per Admitting provider): This is a 47 year old female with PMH of asthma, chronic smoker, obesity, who presents to the ED with chest pain. Pain has been intermittent x 1 week. She describes burning across the chest with radiation to left arm. Pain worsens with ambulating. Initially episodes would resolve with rest and deep breathing. Then today at 5 pm while at work had a chest pain episode radiating down left arm which did not resolve with rest. There was associated diaphoresis and heart racing. Pain lasted approximately 1 hour. She was transferred to ER via ambulance. Received 4 baby aspirin and 3 sublingual nitro en route which improved her pain from 9/10 to 1-2/10. She reports recent increased stress at work and home. Has chronic occasional dry cough. Has not required inhaler recently. Had reflux issues 3-4 months ago which resolved. Left ankle was swollen a few days ago which resolved. Has chronic cramping in both legs. Denies dizziness, SOB, vomiting. No heavy lifting. No recent travel. Denies hx of CAD, HTN, HL, DM. No prior stress test. Physical Exam (per Admitting): General Appearance: WD/WN, no apparent distress Head: normocephalic, atraumatic Eyes: normal inspection, EOMI, sclerae normal ENT: normal ENT inspection, hearing grossly normal Neck: supple, trachea midline Respiratory/Chest: chest non-tender, lungs clear, normal breath sounds, no respiratory distress, no accessory muscle use Cardiovascular: regular rate, rhythm, no murmur Abdomen/GI: normal bowel sounds, non tender, soft Extremities/Musculoskelatal: no calf tenderness, no pedal edema, + pertinent finding (no pain on ROM left shoulder) Neurologic/Psych: alert, oriented x 3 Skin: normal color, warm/dry, no rash (no rash on the chest) Hospital Course This is a 47 year old female with a PMH of tobacco use disorder, asthma presents with chest pain with radiation and subsequently found to have elevated troponin level NSTEMI patient presented with chest pain with radiation to the jaw and LUE troponin elevation noted; 0.07 --> 0.167 EKG shows some T-wave inversion - Lead III and aVF started on aspirin and b-drea heparin drip started echo pending appreciate cardiology input - plan is to transfer to [facility] to the geophysical laboratory chief no beds available - attempting to transfer directly to the geophysical laboratory chief Tobacco Use Disorder counseled on tobacco cessation patient agreeable currently states she does not need a nicotine patch DVT ppx heparin drip FULL CODE Total time spent on discharge = 45 This includes examination of the patient, discharge planning, medication reconciliation, and communication with other providers. Discharge Instructions To be transferred to [facility] for cardiac cath continue IV heparin on transfer; transfer via ALS aspirin, statin, metoprolol
[2017-05-23] MEDS ORDERED: ASPCH81X PO (13:07)
[2017-05-23] MEDS ORDERED: CLOP1TAB15 PO (13:09)
[2017-05-23] MEDS ORDERED: MULTTAB58 PO (13:09)
[2017-05-23] MEDS ORDERED: ANT25 PO (13:09)
[2017-05-23] MEDS ORDERED: NTRGSL/4 UT (13:09)
[2017-05-23] MEDS ORDERED: ATOR-26 PO (13:09)
== END 2017-04-28 10:50 | disposition short-term general hospital (02) | DRG 282 ==
LOC: EDBD 18:48 → C.EDB 18:49 → C.2T 22:22 → EDBEDREQ 22:26 → ENRESERV 22:46
PROVIDERS: ADMIT Family Medicine; ATTEND Family Medicine
DX: I21.4 Non-ST elevation (NSTEMI) myocardial infarction (principal); J45.909 Unspecified asthma, uncomplicated; F17.210 Nicotine dependence, cigarettes, uncomplicated; Z82.49 Family history of ischemic heart disease and other diseases of the circulatory system

== ENCOUNTER 2017-06-28 23:04 | Observation (INO) | payer BC ==
[~2017-06-28] VITALS: Ht 162.6 cm; Wt 75.7 kg
[~2017-06-28 23:04] MED LIST: ANT25 PO; ASPCH81X PO; ATOR-26 PO; CLOP1TAB15 PO; LPR25 PO; MULTTAB58 PO; NTRGSL/4 UT
[2017-06-28] MEDS ORDERED: ASPIRIN 324 MG CHEW PO STA (23:17)
--- NOTE | 2017-06-28 23:20 | EMERGENCY ROOM VISIT NOTE ---
History Report prepared by Fabrizio: Marcos Díaz Under the Supervision of: Dr. Bo Heredia M.D. First contact with patient: 23:08 Chief Complaint: CHEST PAIN Stated Complaint: BURNING PAIN LEFT SIDE OF CHEST History of Present Illness The patient is a 47 year old female who presents to the Emergency Room with complaints of intermittent burning chest pain that started yesterday. The patient states that it went away yesterday, though it has been intermittent all day. She states that she had a similar episode with similar symptoms in April when she had a minor heart attack. She now has one stent placed, and she states that she still has some blockages in the posterior heart. She states that nothing makes the pain better or worse. The patient denies any headache, shortness of breath, passing out, nausea or vomiting, and she states that the pain has been getting heavier recently. She states that she has not taken any nitroglycerin yet. The patient states that she smokes, and denies any history of diabetes, hypertension, and hyperlipidemia. Source of History: patient Onset: yesterday Position: chest Quality: burning Timing: intermittent Associated Symptoms: No LOC, No headache, No SOB, No nausea, No vomiting Review of Systems See HPI for pertinent positives & negatives. A total of 10 systems reviewed and were otherwise negative. Past Medical & Surgical Medical Problems: (1) ACS (acute coronary syndrome) (2) Asthma (3) Migraines (4) Ovarian cyst Surgical Problems: (1) History of tubal ligation (2) S/P wrist surgery Family History FHx: cancer FHx: diabetes Hypertension Social History Smoking Status: Current Every Day Smoker Alcohol Use: none Drug Use: none Marital Status: Housing Status: lives with friends Occupation Status: employed Current/Historical Medications Scheduled Aspirin (Aspirin Chewable), 81 MG PO DAILY Atorvastatin (Lipitor), 80 MG PO DAILY Clopidogrel (Plavix), 75 MG PO DAILY Loratadine (Claritin), 10 MG PO DAILY Metoprolol Succ (Toprol Xl) (Toprol-Xl), 6.25 MG PO DAILY Multiple Vitamin (Multivitamin), 1 TAB PO DAILY Nitroglycerin (Nitrostat), 0.4 MG UT PRN Ranitidine (Zantac), 150 MG PO DAILY Scheduled PRN Meclizine HCl (Meclizine HCl), 25 MG PO TID PRN for Dizziness or Vertigo Allergies Coded Allergies: No Known Allergies (Unverified , 04/27/17) Physical Exam Vital Signs Date Time Temp Pulse Resp B/P (MAP) Pulse Ox O2 Delivery O2 Flow Rate FiO2 06/28/17 23:38 68 20 102/54 98 Room Air 06/28/17 23:33 88 06/28/17 23:15 97 Room Air 06/28/17 23:14 97 Room Air 06/28/17 23:10 37.1 75 19 121/86 97 Room Air Physical Exam GENERAL: Patient is well appearing and in minimal distress. HEENT: No acute trauma, normocephalic atraumatic, mucous membranes moist, no nasal congestion, no scleral icterus. NECK: No stridor, no adenopathy, no meningismus, trachea is midline. LUNGS: No dyspnea. Clear to auscultation and equal bilaterally. No wheeze, no rhonchi. HEART: Regular rate and rhythm. No murmurs, rubs, gallops appreciated. ABDOMEN: Soft, nontender, bowel sounds positive, no masses appreciated, no peritonitis. BACK: No midline tenderness, no CVA tenderness EXTREMITIES: Normal motion all extremities, no cyanosis, no edema. NEUROLOGIC: Alert and oriented, no acute motor or sensory deficits, no focal weakness, cranial nerves grossly intact. SKIN: No rash, no jaundice, no diaphoresis. Medical Decision & Procedures ER Provider Diagnostic Interpretation: X ray results are stated below per my interpretation: Chest: 1 view: No infiltrate, no effusion, normal cardiac border. Laboratory Results 06/28/17 23:20 Red Blood Count 4.14, Mean Corpuscular Volume 94.9, Mean Corpuscular Hemoglobin 30.9, Mean Corpuscular Hemoglobin Concent 32.6, Mean Platelet Volume 11.6, Neutrophils (%) (Auto) 54.8, Lymphocytes (%) (Auto) 33.3, Monocytes (%) (Auto) 7.5, Eosinophils (%) (Auto) 3.7, Basophils (%) (Auto) 0.5, Neutrophils # (Auto) 4.80, Lymphocytes # (Auto) 2.91, Monocytes # (Auto) 0.66, Eosinophils # (Auto) 0.32, Basophils # (Auto) 0.04 06/28/17 23:20 Test 10/18/17 23:20 White Blood Count 8.75 K/uL (4.8-10.8) Red Blood Count 4.14 M/uL (4.2-5.4) Hemoglobin 12.8 g/dL (12.0-16.0) Hematocrit 39.3 % (37-47) Mean Corpuscular Volume 94.9 fL (80-100) Mean Corpuscular Hemoglobin 30.9 pg (25-34) Mean Corpuscular Hemoglobin Concent 32.6 g/dl (32-36) Platelet Count 229 K/uL (130-400) Mean Platelet Volume 11.6 fL (7.4-10.4) Neutrophils (%) (Auto) 54.8 % Lymphocytes (%) (Auto) 33.3 % Monocytes (%) (Auto) 7.5 % Eosinophils (%) (Auto) 3.7 % Basophils (%) (Auto) 0.5 % Neutrophils # (Auto) 4.80 K/uL (1.4-6.5) Lymphocytes # (Auto) 2.91 K/uL (1.2-3.4) Monocytes # (Auto) 0.66 K/uL (0.11-0.59) Eosinophils # (Auto) 0.32 K/uL (0-0.5) Basophils # (Auto) 0.04 K/uL (0-0.2) RDW Standard Deviation 47.9 fL (36.4-46.3) RDW Coefficient of Variation 13.8 % (11.5-14.5) Immature Granulocyte % (Auto) 0.2 % Immature Granulocyte # (Auto) 0.02 K/uL (0.00-0.02) Prothrombin Time 9.9 SECONDS (9.0-12.0) Prothromb Time International Ratio 0.9 (0.9-1.1) Activated Partial Thromboplast Time 26.7 SECONDS (21.0-31.0) Partial Thromboplastin Ratio 1.0 Anion Gap 6.0 mmol/L (3-11) Est Creatinine Clear Calc Drug Dose 98.9 ml/min Estimated GFR () 119.2 Estimated GFR (Non- 102.9 BUN/Creatinine Ratio 15.4 (10-20) Calcium Level 9.0 mg/dl (8.5-10.1) Total Creatine Kinase 67 U/L (26-192) Creatine Kinase MB 1.4 ng/ml (0.5-3.6) Creatine Kinase MB Ratio 2.1 (0-3.0) Troponin I < 0.015 ng/ml (0-0.045) Laboratory results as reviewed by me. Medications Administered Medications (Trade) Dose Ordered Sig/Chinedu Route Start Time Stop Time Status Last Admin Dose Admin Aspirin (Aspirin Chew) 324 mg NOW STAT PO 06/28/17 23:17 06/28/17 23:20 DC 06/28/17 23:35 324 MG Nitroglycerin (Nitroglycerin 2% Oint) 1 inch NOW ONCE EXT 06/28/17 23:30 06/28/17 23:31 DC 06/28/17 23:36 1 INCH ECG Indication: chest pain Rate (beats per minute): 71 Rhythm: normal sinus Findings: no acute ischemic change, no ectopy ED Course 2308: The patient was evaluated in room B7. A complete history and physical exam was performed. 2317: Aspirin 324mg PO 2330: Nitroglycerin 2% Oint EXT, Nitroglycerin 0.4mg SL 0011: I reevaluated the patient, and she was feeling better. I discussed the treatment plan with the patient, and she was agreeable. 0020: Discussed the patient's case with Dr. Corrigan. The patient will be evaluated for further treatment and disposition. Medical Decision Differential: Cardiac Ischemia (STEMI, NSTEMI, Unstable Angina, etc), Aortic Dissection, Arrhythmia, Pulmonary Embolism, Pneumonia, Pneumothorax, MSK, Infectious, Pericarditis/Myocarditis, Esophageal Rupture, Gastrointestinal, amongst other pathologies entertained. 47 yr old female previously heavy smoker with known CAD and stenting several months ago, arrives for evaluation of left burning chest pain similar though not as strong as OK she had previously. EKG OK, Trop negative, and looks well. Pain resolved post nitro and asa. CXR clear no evidence dissection. Symptoms not consistent with PE. Given history will need to come in for cardiac rule out. Medication Reconcilliation Current Medication List: was personally reviewed by me Blood Pressure Screening Patient's blood pressure: Normal blood pressure Consults Time Called: 14 Consulting Physician: Garrett Monahan Returned Call: [phone] Discussed the patient's case with Dr. Corrigan. The patient will be evaluated for further treatment and disposition. Impression Primary Impression: Left sided chest pain Scribe Attestation The scribe's documentation has been prepared under my direction and personally reviewed by me in its entirety. I confirm that the note above accurately reflects all work, treatment, procedures, and medical decision making performed by me. Departure Information Dispostion Being Evaluated By Hospitalist Referrals Leon Oconnor M.D. (PCP) Patient Instructions My [facility]
[2017-06-28] MEDS ORDERED: NITROGLYCERIN 0.4 MG SL PER TAB CHARGE SL PRN (23:30)
[2017-06-28] MEDS ORDERED: NITROGLYCERIN OINT 2% 1GM PACKET EXT ONE (23:30)
[2017-06-28 23:45] LABS: BASO % 0.5 %; BASO ABS # 0.04 K/uL (0-0.2); COMPLETE YES; EOS % 3.7 %; HEMATOCRIT 39.3 % (37-47); IG% 0.2 %; LYMPH % 33.3 %; LYMPH ABS # 2.91 K/uL (1.2-3.4); MEAN CELL VOLUME 94.9 fL (80-100); MEAN CORPUSCULAR HEMOGLOBIN 30.9 pg (25-34); MEAN CORPUSCULAR HGB CONC 32.6 g/dl (32-36); MEAN PLATELET VOLUME 11.6 fL (7.4-10.4); MONO % 7.5 %; NEUT % 54.8 %; PLATELET COUNT 229 K/uL (130-400); RED BLOOD COUNT 4.14 M/uL (4.2-5.4); WHITE BLOOD COUNT 8.75 K/uL (4.8-10.8)
[2017-06-28] MEDS ORDERED: METO25TA3 PO (23:53)
[2017-06-28] MEDS ORDERED: LORA10TA5 PO (23:55)
[2017-06-28] MEDS ORDERED: ZNTT/150 PO (23:56)
[2017-06-29] LABS: INR 0.9 (0.9-1.1); PROTHROMBIN TIME (PATIENT) 9.9 SECONDS (9.0-12.0)
[2017-06-29 00:06] LABS: BLOOD UREA NITROGEN 11 mg/dl (7-18); BUN/CREATININE RATIO 15.4 (10-20); CARBON DIOXIDE 26 mmol/L (21-32); CHLORIDE 106 mmol/L (98-107); CREATININE 0.71 mg/dl (0.60-1.20); GLUCOSE 78 mg/dl (70-99); POTASSIUM 3.5 mmol/L (3.5-5.1); SODIUM 137 mmol/L (136-145)
[2017-06-29 00:11] LABS: CKMB/CK RATIO 2.1 (0-3.0)
[2017-06-29] MEDS ORDERED: NITROGLYCERIN 0.4 MG SL PER TAB CHARGE UT SCH (01:00)
[2017-06-29] MEDS ORDERED: MECLIZINE HCL 25 MG TAB PO PRN (01:00)
[2017-06-29] MEDS ORDERED: ACETAMINOPHEN 325 MG TAB PO PRN (01:00)
[2017-06-29] MEDS ORDERED: NITROGLYCERIN 0.4 MG SL PER TAB CHARGE SL PRN (01:00)
[2017-06-29] MEDS ORDERED: ALUMINUM/MAGNESIUM/SIMETH (MAALOX MAX) 30 ML UDC PO PRN (01:00)
[2017-06-29] MEDS ORDERED: MoRPHine SULFATE 2 MG/ML CARP IV PRN (01:00)
[2017-06-29] MEDS ORDERED: MAGNESIUM HYDROXIDE SUSP 30 ML UDC PO PRN (01:00)
[2017-06-29] MEDS ORDERED: ONDANSETRON INJ 2 MG/ML 2 ML VIAL IV PRN (01:00)
[2017-06-29] MEDS ORDERED: IV FLUIDS COMPLETED PRN (01:00)
--- NOTE | 2017-06-29 01:25 | HISTORY & PHYSICAL EXAMINATION ---
DATE OF ADMISSION: 06/29/2017 CHIEF COMPLAINT: Chest pain. HISTORY OF PRESENT ILLNESS: This is a 47-year-old female with past medical history significant for CAD status post drug-eluting stent to the LAD, benign paroxysmal positional vertigo, tobacco use disorder, hyperlipidemia who presents with left-sided chest pain. The patient was admitted to [facility] in April 2017 with exertional chest pain, burning sensation and found to have EKG changes and had non-ST elevated NH and she was transferred to [place] for further intervention where she had a cardiac catheterization which showed proximal LAD lesion with 18 mm long lesion and she had drug-eluting stent placed and had some mild residual stenosis, but opted for medical management and patient was doing okay. patient says she did not participate in cardiac rehabilitation. because the blood pressure is running low and also because she was on prednisone for rash.She is supposed to go to tomorrow to restart cardiac rehab , but yesterday she developed some left-sided chest pain which went away, but today again all day long she was getting left-sided chest pain on and off and was progressively getting worsened, about 7/10 in severity which prompted her to come to the ER , no radiation, no sweating, no nausea, vomiting, no dizziness . No headaches, no blurred vision, no cough, no sore throat, no difficulty swallowing. No abdominal pain. Normal bowel and bladder movements. Appetite is okay. She is trying to cut back on her smoking, currently resting comfortable and hemodynamically stable. ALLERGIES: No known drug allergies. PAST MEDICAL HISTORY: As mentioned above. PAST SURGICAL HISTORY: Coronary artery catheterization, left heart catheterization, ligation of ovary duct, left wrist surgery. MEDICATIONS: The patient is on aspirin 81 mg p.o. daily, statin, Lipitor 80 mg p.o. daily, Plavix 75 mg p.o. daily, nitroglycerin 0.4 mg sublingual p.r.n., multivitamin 1 tablet daily, meclizine 25 mg p.o. t.i.d. p.r.n., prednisolone, Zantac 150 mg p.o. b.i.d., Claritin 10 mg p.o. daily, metoprolol succinate 6.25 mg p.o. daily. FAMILY HISTORY: No significant family history. SOCIAL HISTORY: Currently smoking 1 pack for 3.5 days. No alcohol use. No drug use. REVIEW OF SYMPTOMS: As per HPI. Rest of review of symptoms negative. PHYSICAL EXAMINATION: GENERAL: The patient is of moderate build, not in distress. VITAL SIGNS: Temperature 37.1, pulse 68, respiratory rate 20, blood pressure 102/54, oxygen 98% on room air. HEENT: No pallor, no icterus. Pupils equal, round, and reactive to light. NECK: No JVD, no neck masses, no carotid bruits. CARDIOVASCULAR: S1, S2 heard, regular rate and rhythm, no murmur, no gallop. RESPIRATORY SYSTEM: Clear to auscultation bilaterally. No wheezing, no crackles. ABDOMEN: Soft, bowel sounds present. Nontender. No distention. CENTRAL NERVOUS SYSTEM: Cranial nerves II-XII grossly intact. Nonfocal. EXTREMITIES: No edema, no erythema. LABORATORIES: Sodium 137, potassium 3.5, chloride 106, bicarbonate 26, BUN 11, creatinine 0.7, serum glucose 78, calcium 9, total creatinine kinase 67. Troponin I less than 0.015. WBC 8.7, hemoglobin 12.8, hematocrit 39.3, platelets 229. PT 9, INR 0.9, PTT 26.7. Chest x-ray, no acute findings seen on a chest x-ray. EKG: Normal sinus rhythm with rate of 71. No acute ST changes seen. ASSESSMENT AND PLAN: This is a 47-year-old female who presents with left-sided chest pain. 1. Left-sided chest pain with recent history of coronary artery disease with drug-eluting stent placement in LAD with some mild residual disease. Currently , EKG unremarkable. Troponin is negative. We will observe on tele floor. Serial cardiac enzymes, echocardiogram. Continue home medications of aspirin, Plavix, statin and beta drea. Follow echocardiogram, consult cardiology in a.m. 2. Hyperlipidemia. Continue statin. We will follow the fasting lipid profile. 3. Deep venous thrombosis prophylaxis, SCDs and TEDs for now. DISPOSITION: Observation on tele floor. Expect to discharge home and follow with family doctor and cardiology. Level 1 full code. MTDD
[2017-06-29 02:10] VITALS: BP 105/66; PULSE 72; TEMP 36.5; O2SAT 98; Ht 162.6 cm; Wt 75.7 kg
[2017-06-29 05:21] LABS: BASO % 0.4 %; BASO ABS # 0.03 K/uL (0-0.2); COMPLETE YES; EOS % 3.6 %; HEMATOCRIT 35.4 % (37-47); IG% 0.1 %; LYMPH % 35.5 %; LYMPH ABS # 2.95 K/uL (1.2-3.4); MEAN CELL VOLUME 95.2 fL (80-100); MEAN CORPUSCULAR HEMOGLOBIN 30.9 pg (25-34); MEAN CORPUSCULAR HGB CONC 32.5 g/dl (32-36); MEAN PLATELET VOLUME 11.2 fL (7.4-10.4); NEUT % 51.4 %; PLATELET COUNT 190 K/uL (130-400); RED BLOOD COUNT 3.72 M/uL (4.2-5.4); WHITE BLOOD COUNT 8.31 K/uL (4.8-10.8)
[2017-06-29 05:49] LABS: BUN/CREATININE RATIO 17.1 (10-20); CALCIUM 8.2 mg/dl (8.5-10.1); CREATININE 0.69 mg/dl (0.60-1.20); POTASSIUM 3.8 mmol/L (3.5-5.1)
[2017-06-29 05:52] LABS: CHOLESTEROL/HDL RATIO 2.3
--- NOTE | 2017-06-29 06:32 | DIAGNOSTIC IMAGING REPORT ---
CHEST ONE VIEW PORTABLE CLINICAL HISTORY: Atypical chest pain COMPARISON STUDY: April 27, 2017 FINDINGS: The cardiac and mediastinal contours are normal. There is no evidence of focal pulmonary consolidation. There is no evidence of failure. No pleural effusions are visualized.[ IMPRESSION: No active disease in the chest. Electronically signed by: Arian Hamilton M.D. 06/29/2017 6:31 AM Dictated Date/Time: 06/29/2017 6:31 AM
[2017-06-29 07:24] VITALS: BP 91/51; PULSE 79; TEMP 37; O2SAT 96
[2017-06-29 07:59] VITALS: BP 99/58; PULSE 84
[2017-06-29] MEDS ORDERED: LORATADINE 10 MG TAB PO SCH (09:00)
[2017-06-29] MEDS ORDERED: CLOPIDOGREL BISULFATE 75 MG TAB PO SCH (09:00)
[2017-06-29] MEDS ORDERED: ASPIRIN 81 MG CHEW PO SCH (09:00)
[2017-06-29] MEDS ORDERED: METOPROLOL SUCC 25MG EXT REL TAB PO SCH (09:00)
[2017-06-29] MEDS ORDERED: RANITIDINE HCL 150 MG TAB PO SCH (09:00)
[2017-06-29] MEDS ORDERED: ATORVASTATIN 40 MG TAB PO SCH (09:00)
[2017-06-29] MEDS ORDERED: MULTIVITAMIN TAB PO SCH (09:00)
[2017-06-29 09:14] LABS: CKMB/CK RATIO 1.2 (0-3.0)
--- NOTE | 2017-06-29 09:21 | ECHOCARDIOGRAM REPORT ---
*NOTICE TO RECEIVING [employer] This information is strictly Confidential and protected under [place] law. [place] law prohibits you from making any further disclosure of this information unless further disclosure is expressly permitted by the written consent of the person to whom it pertains or is authorized by law. A general authorization for the release of medical or other information is not sufficient for this purpose. Hospital accepts no responsibility if the information is made available to any other person, INCLUDING THE PATIENT. Interpretation Summary * Name: VALERIY HOWARD Study Date: 06/29/2017 07:17 AM BP: 99/58 mmHg * Patient Location: [facility]\S\N286\S\2 HR: 84 * : 1970 (M/d/yyyy) Gender: Female Height: 63 in * Age: 47 yrs Ethnicity: [place] Weight: 167 lb * Ordering Physician: Steve Corrigan * Referring Physician: Self, Referred * Performed By: Florence Feliciano RDCS * * Reason For Study: CHEST PAIN * BSA: 1.8 m2 * -- Conclusions -- * The left ventricular wall motion is normal. * Left ventricular systolic function is normal. * The LV Ejection Fraction = 55-60%. * There is trace tricuspid regurgitation. * Doppler findings do not suggest pulmonary hypertension. * The LV diastolic function is normal. * There is no pericardial effusion. Procedure Details * A complete two-dimensional transthoracic echocardiogram was performed (2D, M-mode, Doppler and color flow Doppler). Left Ventricle * The left ventricle is normal in size. * There is normal left ventricular wall thickness. * Ejection Fraction = 55-60%. * Left ventricular systolic function is normal. * The left ventricular wall motion is normal. Right Ventricle * The right ventricle is normal size. * The right ventricular systolic function is normal as assessed by tricuspid annular plane systolic excursion (TAPSE) (normal >1.5 cm). Atria * The left atrial size is normal. * Right atrial size is normal. * There is no evidence of atrial septal defect, but resolution does not allow assessment for a patent foramen ovale. Mitral Valve * The mitral valve is normal. * There is no mitral valve stenosis. * Significant mitral regurgitation is absent. Tricuspid Valve * The tricuspid valve is normal. * There is no tricuspid stenosis. * There is trace tricuspid regurgitation. * Doppler findings do not suggest pulmonary hypertension. Aortic Valve * The aortic valve is trileaflet. * Aortic stenosis is absent. * There is no significant aortic regurgitation. Pulmonic Valve * The pulmonary valve is not well seen, but the Doppler examination is normal without significant regurgitation or stenosis. Great Vessels * The aortic root and proximal ascending aorta are normal sized. Pericardium/Pleural * There is no pericardial effusion. Great Vessels * Normal inferior vena cava diameter and respiratory variation suggests normal central venous pressure. Left Ventricular Diastolic Function * The LV diastolic function is normal. MMode 2D Measurements and Calculations IVSd 0.81 cm IVSs 1.2 cm LVIDd 4.6 cm LVIDs 3.3 cm LVPWd 0.93 cm LVPWs 1.4 cm IVS/LVPW 0.87 FS 28.6 % EDV(Teich) 99.7 ml ESV(Teich) 44.8 ml EF(Teich) 55.1 % EDV(cubed) 100.3 ml ESV(cubed) 36.6 ml EF(cubed) 63.5 % % IVS thick 42.5 % % LVPW thick 53.9 % LV mass(C)d 134.5 grams LV mass(C)dI 75.1 grams/m\S\2 LV mass(C)s 142.2 grams LV mass(C)sI 79.4 grams/m\S\2 SV(Teich) 54.9 ml SI(Teich) 30.6 ml/m\S\2 SV(cubed) 63.7 ml SI(cubed) 35.6 ml/m\S\2 Ao root diam 2.9 cm Ao root area 6.4 cm\S\2 LA dimension 3.3 cm LA/Ao 1.2 LVAd ap4 24.8 cm\S\2 LVLd ap4 7.3 cm EDV(MOD-sp4) 71.0 ml LVAs ap4 14.5 cm\S\2 LVLs ap4 6.0 cm ESV(MOD-sp4) 30.5 ml EF(MOD-sp4) 57.0 % LVAd ap2 25.9 cm\S\2 LVLd ap2 7.5 cm EDV(MOD-sp2) 78.0 ml LVAs ap2 14.7 cm\S\2 LVLs ap2 6.0 cm ESV(MOD-sp2) 31.5 ml EF(MOD-sp2) 59.6 % SV(MOD-sp4) 40.5 ml SI(MOD-sp4) 22.6 ml/m\S\2 SV(MOD-sp2) 46.5 ml SI(MOD-sp2) 26.0 ml/m\S\2 Doppler Measurements and Calculations MV E max terry 68.9 cm/sec MV A max terry 50.0 cm/sec MV E/A 1.4 MV dec time 0.20 sec Ao V2 max 152.0 cm/sec Ao max PG 9.2 mmHg Ao max PG (full) 4.2 mmHg LV V1 max PG 5.1 mmHg LV V1 max 112.5 cm/sec TR max terry 205.6 cm/sec
--- NOTE | 2017-06-29 09:31 | Cardiology Consultation ---
Cardiology Consultation Date of Consultation: Jun 29, 2017 History of Present Illness Frances Beal is a 47 year old female seen in cardiology consultation per the request of Dr. Corrigan for the evaluation of chest discomfort. The patient is well known to the undersigned having most recently been seen as an outpatient on 05/08/17. She has a history of non-ST segment elevation myocardial infarction with PCI, drug-eluting stent to the LAD in April 2017. The patient states that she's been doing well. She was tolerating her medications well and has not missed any doses of aspirin or Plavix. She stated that 2 days ago she felt one to 2 brief mild chest discomfort episodes. Yesterday she felt well and went to work. Starting at approximately 11 PM she felt a mild focal discomfort over her left breast. This waxed and waned over several hours, and progressed over night propping her to seek emergency room care. EKG performed on presentation last evening revealed sinus rhythm with no significant ST changes including improvement in her previously noted anterior T- wave inversion, as the 2 leads were normal on the EKG last night. Troponin has been negative times one thus far, and a repeat is pending at time of this report. A repeat EKG performed this morning on 06/29/17 at 9:19 AM reveals normal sinus rhythm with no significant ST abnormality. The patient currently has Nitropaste on her right shoulder. She denies any chest discomfort she does have a mild headache which has been palliated with Tylenol. She states that recently she had trouble with itching of her skin prompting a prednisone taper on 06/13/17 and a course of Zantac and loratadine. This has improved recently. Past Medical/Surgical History Problem List: Medical Problems: (1) ACS (acute coronary syndrome) (2) Asthma (3) Migraines (4) Ovarian cyst Surgical Problems: (1) History of tubal ligation (2) S/P wrist surgery History Past Medical History: 1. Coronary heart disease the patient had initially presented to [facility] on 04/27/17 with complaint of exertional chest discomfort that occurred at her place of employment and prepped and transferred by EMS from her workplace to the emergency department. She was found to have an abnormal EKG at that time with T-wave inversions in the anteroseptal leads and her cardiac enzymes became elevated on serial measurements. She was placed on anticoagulation with unfractionated heparin and was seen by the undersigned on at which time she was chest pain-free on appropriate medication therapy. She was transferred to [facility] for cardiac catheterization on revealing an 80% proximal LAD coronary artery stenosis that was 18 mm long. She underwent pertains coronary intervention with placement of the Xience drug-eluting stent. Otherwise diagnostic cardiac catheterization revealed mild residual right PDA disease for ongoing medical management has been recommended. 2. Ongoing cigarette smoking 3. Dyslipidemia 4. Borderline low blood pressure. This is limited medications, she is therefore not on an HODA inhibitor or an angiotensin receptor drea, and her beta drea dose has been very low Past Surgical History: Cardiac catheterization April 2017 as outlined above Social History: Visit home. She is employed locally, she is a smoker. Review Of Systems See above for pertinent positives & negatives. A total of 10 systems reviewed and were otherwise negative. Allergies Coded Allergies: No Known Allergies (Unverified , 04/27/17) Medications Reported Home Medications Medications Dose Route/Sig Max Daily Dose Days Date Category Dose Instructions Zantac (Ranitidine HCl) 150 Mg Tab 150 Mg PO DAILY 06/28/17 Reported Claritin (Loratadine) 10 Mg Tab 10 Mg PO DAILY 06/28/17 Reported Toprol-Xl (Metoprolol Succinate) 25 Mg Tabcr 6.25 Mg PO DAILY 06/28/17 Reported 1/4 TAB DOSE DAILY Meclizine HCl 25 Mg Tab 25 Mg PO TID PRN 05/23/17 Reported Multivitamin (Multiple Vitamin) 1 Tab Tab 1 Tab PO DAILY 05/23/17 Reported Nitrostat (Nitroglycerin) 0.4 Mg Tab 0.4 Mg UT PRN 05/23/17 Reported Plavix (Clopidogrel Bisulfate) 75 Mg Tab 75 Mg PO DAILY 05/23/17 Reported Lipitor (Atorvastatin Calcium) 80 Mg Tab 80 Mg PO DAILY 05/23/17 Reported Aspirin Chewable (Aspirin) 81 Mg Chew 81 Mg PO DAILY 05/23/17 Reported Physical Exam Vital Signs (Last 8hrs): Last 8 Hrs Date Time Temp Pulse Resp B/P (MAP) Pulse Ox O2 Delivery O2 Flow Rate FiO2 06/29/17 08:00 Room Air 06/29/17 07:59 84 99/58 (72) 06/29/17 07:24 37.0 79 16 91/51 (64) 96 Room Air 06/29/17 04:00 Room Air 06/29/17 02:10 36.5 72 16 105/66 98 Room Air General Appearance: Alert and Oriented x3. NAD. Head: Normocephalic Atraumatic. Eyes: PERRLA, EOMI, conjunctiva and sclera clear Neck: Supple. No carotid bruits noted. No JVD. No HJD. Respiratory: Breath sounds clear to auscultation bilaterally. No w/r/r. Cardiovascular: Reg rate and rhythm. S1 and S2 noted. No murmurs, rubs, gallops. PMI non displace. Abdomen: Normal bowel sounds, soft nontender. no abdominal bruits. Extremities: No edema, no clubbing or cyanosis. distal pulses 2/4 bilaterally. Neuro: No focal deficits. Psychiatric: Normal affect. Data Last Resulted 06/29/17 05:11 Red Blood Count 3.72, Mean Corpuscular Volume 95.2, Mean Corpuscular Hemoglobin 30.9, Mean Corpuscular Hemoglobin Concent 32.5, Mean Platelet Volume 11.2, Neutrophils (%) (Auto) 51.4, Lymphocytes (%) (Auto) 35.5, Monocytes (%) (Auto) 9.0, Eosinophils (%) (Auto) 3.6, Basophils (%) (Auto) 0.4, Neutrophils # (Auto) 4.27, Lymphocytes # (Auto) 2.95, Monocytes # (Auto) 0.75, Eosinophils # (Auto) 0.30, Basophils # (Auto) 0.03 Last Resulted 06/29/17 05:11 Past 24 Hours Test 06/28/17 23:20 06/29/17 05:11 Range/Units Creatine Kinase MB 1.4 0.6 0.5-3.6 ng/ml Creatine Kinase MB Ratio 2.1 1.2 0-3.0 Prothromb Time International Ratio 0.9 0.9-1.1 Prothrombin Time 9.9 9.0-12.0 SECONDS Total Creatine Kinase 67 49 26-192 U/L Troponin I < 0.015 < 0.015 0-0.045 ng/ml EKG as noted above. Telemetry reveals sinus rhythm and sinus arrhythmia with no significant arrhythmia. Assessment & Plan Impression: 47-year-old female 1. Chest discomfort, with patient having had previous non-ST segment elevation myocardial infarction, drug-eluting stent to the LAD, in April 2017, mild residual right PDA disease 2. Dyslipidemia, for which she is on high-dose atorvastatin therapy 3. Baseline relative low blood pressure, limiting doses of medications 4. Ongoing cigar smoking, she has been cutting back however Discussion/recommendations: Her resting tachycardia gram performed today revealed a interval improvement in the mild anteroseptal wall motion and her mobility noted in April before her cardiac catheterization/stent procedure. The patient is feeling well. Her symptoms did not nonischemic, with severe exertion yesterday just waxed and waned throughout her day. She describes that they were certainly less intense than that which prompted her to come to the hospital when she had her myocardial infarction. She has not missed any doses of medications. At this time, I recommend that we await her second set of cardiac enzymes which have been drawn and are currently pending. If her troponin remains negative and she continues to feel well after discontinuation of her topical nitrates, plan for an exercise stress echocardiogram today. Continue her chronic cardiac medications. Hu James DO, FACC, FACOI Associate Telemedicine Physician [facility] [place]
--- NOTE | 2017-06-29 11:00 | Progress Note ---
Internal Med Progress Note Date of Service: Jun 29, 2017. Provider Documentation: SUBJECTIVE: The patient was seen and examined Admitted with Left sided Chest pain H/O NSTEMI in April with LAD stent Denies any pain this Morning Wants to go home today OBJECTIVE: Vital Signs-as noted below Exam: General-no distress at rest Eyes-normal ENT-normal Neck-supple Lungs-Clear to auscultate bilaterally Heart-Regular,no murmur Abdomen-Benign,no masses,bowel sound present Extremities-NO edema Neuro-AAOx3 Lab data as noted below. ASSESSMENT & PLAN: This is a 47-year-old female who presents with left-sided chest pain. Left-sided chest pain H/O NSTEMI in April/2017 with drug-eluting stent placement in LAD with some mild residual disease EKG and Serial Peter -no ACS Appreciate Cardiology input Will have Exercise Stress ECHO this AM Continue home medications of aspirin, Plavix, statin and beta drea. Hyperlipidemia. Continue statin. We will follow the fasting lipid profile. Deep venous thrombosis prophylaxis, SCDs and TEDs for now. DISPOSITION Likely home following Stress test if Negative Vital Signs: Date Time Temp Pulse Resp B/P (MAP) Pulse Ox O2 Delivery O2 Flow Rate FiO2 06/29/17 08:00 Room Air 06/29/17 07:59 84 99/58 (72) 06/29/17 07:24 37.0 79 16 91/51 (64) 96 Room Air 06/29/17 04:00 Room Air 06/29/17 02:10 36.5 72 16 105/66 98 Room Air 06/29/17 00:55 68 20 111/78 97 Room Air 06/28/17 23:38 68 20 102/54 98 Room Air 06/28/17 23:33 88 06/28/17 23:15 97 Room Air 06/28/17 23:14 97 Room Air 06/28/17 23:10 37.1 75 19 121/86 97 Room Air Lab Results: Results Past 24 Hours Test 06/28/17 23:20 06/29/17 05:11 Range/Units White Blood Count 8.75 8.31 4.8-10.8 K/uL Red Blood Count 4.14 3.72 4.2-5.4 M/uL Hemoglobin 12.8 11.5 12.0-16.0 g/dL Hematocrit 39.3 35.4 37-47 % Mean Corpuscular Volume 94.9 95.2 80-100 fL Mean Corpuscular Hemoglobin 30.9 30.9 25-34 pg Mean Corpuscular Hemoglobin Concent 32.6 32.5 32-36 g/dl Platelet Count 229 190 130-400 K/uL Mean Platelet Volume 11.6 11.2 7.4-10.4 fL Neutrophils (%) (Auto) 54.8 51.4 % Lymphocytes (%) (Auto) 33.3 35.5 % Monocytes (%) (Auto) 7.5 9.0 % Eosinophils (%) (Auto) 3.7 3.6 % Basophils (%) (Auto) 0.5 0.4 % Neutrophils # (Auto) 4.80 4.27 1.4-6.5 K/uL Lymphocytes # (Auto) 2.91 2.95 1.2-3.4 K/uL Monocytes # (Auto) 0.66 0.75 0.11-0.59 K/uL Eosinophils # (Auto) 0.32 0.30 0-0.5 K/uL Basophils # (Auto) 0.04 0.03 0-0.2 K/uL RDW Standard Deviation 47.9 48.2 36.4-46.3 fL RDW Coefficient of Variation 13.8 13.9 11.5-14.5 % Immature Granulocyte % (Auto) 0.2 0.1 % Immature Granulocyte # (Auto) 0.02 0.01 0.00-0.02 K/uL Prothrombin Time 9.9 9.0-12.0 SECONDS Prothromb Time International Ratio 0.9 0.9-1.1 Activated Partial Thromboplast Time 26.7 21.0-31.0 SECONDS Partial Thromboplastin Ratio 1.0 Sodium Level 137 142 136-145 mmol/L Potassium Level 3.5 3.8 3.5-5.1 mmol/L Chloride Level 106 111 98-107 mmol/L Carbon Dioxide Level 26 25 21-32 mmol/L Anion Gap 6.0 6.0 3-11 mmol/L Blood Urea Nitrogen 11 12 7-18 mg/dl Creatinine 0.71 0.69 0.60-1.20 mg/dl Est Creatinine Clear Calc Drug Dose 98.9 102.6 ml/min Estimated GFR () 119.2 121.8 Estimated GFR (Non- 102.9 105.1 BUN/Creatinine Ratio 15.4 17.1 10-20 Random Glucose 78 88 70-99 mg/dl Calcium Level 9.0 8.2 8.5-10.1 mg/dl Total Creatine Kinase 67 49 26-192 U/L Creatine Kinase MB 1.4 0.6 0.5-3.6 ng/ml Creatine Kinase MB Ratio 2.1 1.2 0-3.0 Troponin I < 0.015 < 0.015 0-0.045 ng/ml Magnesium Level 2.3 1.8-2.4 mg/dl Triglycerides Level 60 0-150 mg/dl Cholesterol Level 115 0-200 mg/dl HDL Cholesterol 49 mg/dl LDL Cholesterol, Calculated 54 mg/dl VLDL Cholesterol, Calculated 12 mg/dl Cholesterol/HDL Ratio 2.3
--- NOTE | 2017-06-29 11:28 | Cardiology Progress Note ---
Cardiology Progress Note Date of Service Jun 29, 2017. Cardiology Progress Note Exercise stress echo was negative for ischemia, achieving a moderately high peak workload. No symptoms suggestive of angina were induced. Stable for discharge from cardiac perspective. 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 OK to return to cardiac rehab. OK to return to work today. Michelle James, DO
--- NOTE | 2017-06-29 11:37 | Discharge Instructions ---
Discharge Instructions Date of Service Jun 29, 2017. Admission Reason for Admission: Left Sided Chest Pain Discharge Discharge Diagnosis / Problem: Chest pain -No ACS,Neg Stress ECHO,S/P RENETTA in LAD in Discharge Goals Goal(s): Prevent Disease Progression Activity Recommendations Activity Limitations: resume your previous activity . Instructions / Follow-Up Instructions / Follow-Up DR Oconnor on 07/06/17 at 11:05 AM. Keep regular follow up with Cardiology Current Hospital Diet Patient's current hospital diet: AHA Diet (Heart Healthy) Discharge Diet Recommended Diet: AHA Diet (Heart Healthy) Pending Studies Studies pending at discharge: no Laboratory Results Lipid Panel Test 06/29/17 05:11 Range/Units Triglycerides Level 60 0-150 mg/dl Cholesterol Level 115 0-200 mg/dl HDL Cholesterol 49 mg/dl Cholesterol/HDL Ratio 2.3 LDL Cholesterol, Calculated 54 mg/dl Medical Emergencies . Who to Call and When: Medical Emergencies: If at any time you feel your situation is an emergency, please call 911 immediately. . Non-Emergent Contact Non-Emergency issues call your: Primary Care Provider . Past History Medical & Surgical History: (1) CAD S/P percutaneous coronary angioplasty (2) Left sided chest pain (3) Migraines (4) Asthma (5) History of tubal ligation (6) S/P wrist surgery . "Provider Documentation" section prepared by Holly Melo. . VTE Core Measure Inpt VTE Proph given/why not?: SCD's
--- NOTE | 2017-06-29 11:57 | EXERCISE STRESS ECHO ---
*NOTICE TO RECEIVING DEMOCRAT AGENCY This information is strictly Confidential and protected under [place] law. [place] law prohibits you from making any further disclosure of this information unless further disclosure is expressly permitted by the written consent of the person to whom it pertains or is authorized by law. A general authorization for the release of medical or other information is not sufficient for this purpose. Hospital accepts no responsibility if the information is made available to any other person, INCLUDING THE PATIENT. Interpretation Summary * Name: VALERIY HOWARD Study Date: 06/29/2017 10:02 AM BP: 88/56 mmHg * Patient Location: [facility]\S\[id number]\S\[id number] HR: 61 * : 1970 (M/d/yyyy) Gender: Female Height: 64 in * Age: 47 yrs Ethnicity: [place] Weight: 166 lb * Ordering Physician: Hu James * Referring Physician: Self, Referred * Performed By: Felicitas Umanzor RCS * * Reason For Study: CHEST PAIN * BSA: 1.8 m2 * -- Conclusions -- * STRESS STUDY: * Normal exercise stress echocardiogram. * No echocardiographic or EKG evidence of myocardial ischemia having achieved heart rate adequate for diagnostic purposes. * No symptoms suggestive of angina were reproduced having achieved a moderatly high to high peak workload. * The heart rate response to exercise was appropriate. * The baseline blood pressure was low with SBP of 88 mm Hg. * The stress blood pressure response was normal. * RESTING STUDY: * Refer to prior report for details of resting study. Procedure Details * Left Ventricle The left ventricle is normal in size. There is normal left ventricular wall thickness. The LV Ejection Fraction = 55-60% at rest. Resting wall motion: Normal. Stress wall motion: Appropriate increase in Left ventricular systolic function and decrease in cavity size. No stress induced segmental wall motion abnormalities. * Stress Parameters Normal baseline electrocardiogram. The stress EKG was negative for ischemia with appropirate upsloping ST segment depression that resolved rapidly in the post exercise recovery interval. The computer synthesized summary data EKG tracings suggest ST depression in the anteroseptal leads, but this was felt to be due to artifactual tracings with baseline wander. Occasional asymptomatic PACs were noted in the post exercise recovery interval. The stress portion of this study was personally supervised by the undersigned interpreting physician. Rest heart rate was '61' BPM. Rest blood pressure was '88/56' Maximum heart rate achieved was 162 bpm. Maximum heart rate was 92 % of maximum age-predicted heart rate. Maximum blood pressure was '144/56' Total exercise time was '08:50' Maximum exercise MET level achieved was '10.10' METS Maximum treadmill speed was '3.40' miles per hour. Maximum treadmill elevation was '14.00'% grade. *
[2017-06-29 12:23] VITALS: BP 99/58; PULSE 84; TEMP 37; O2SAT 96
--- NOTE | 2017-07-03 14:46 | Discharge Summary ---
Discharge Summary Date of Service Jul 03, 2017. Discharge Summary Admission Date: Jun 29, 2017 at 00:51 Discharge Date: Jun 29, 2017 Discharge Disposition: Home Principal Diagnosis: Chest pain -No ACS,Neg Stress ECHO,S/P RENETTA in LAD in Secondary Diagnoses/Problems: Please see H&P and Hospital Progress note Consultations: Cardiology Admission Information HPI (per Admitting provider): DATE OF ADMISSION: 06/29/2017 CHIEF COMPLAINT: Chest pain. HISTORY OF PRESENT ILLNESS: This is a 47-year-old female with past medical history significant for CAD status post drug-eluting stent to the LAD, benign paroxysmal positional vertigo, tobacco use disorder, hyperlipidemia who presents with left-sided chest pain. The patient was admitted to [facility] in April 2017 with exertional chest pain, burning sensation and found to have EKG changes and had non-ST elevated SD and she was transferred to [place] for further intervention where she had a cardiac catheterization which showed proximal LAD lesion with 18 mm long lesion and she had drug-eluting stent placed and had some mild residual stenosis, but opted for medical management and patient was doing okay. patient says she did not participate in cardiac rehabilitation. because the blood pressure is running low and also because she was on prednisone for rash.She is supposed to go to tomorrow to restart cardiac rehab , but yesterday she developed some left-sided chest pain which went away, but today again all day long she was getting left-sided chest pain on and off and was progressively getting worsened, about 7/10 in severity which prompted her to come to the ER , no radiation, no sweating, no nausea, vomiting, no dizziness . No headaches, no blurred vision, no cough, no sore throat, no difficulty swallowing. No abdominal pain. Normal bowel and bladder movements. Appetite is okay. She is trying to cut back on her smoking, currently resting comfortable and hemodynamically stable. ALLERGIES: No known drug allergies. PAST MEDICAL HISTORY: As mentioned above. PAST SURGICAL HISTORY: Coronary artery catheterization, left heart catheterization, ligation of ovary duct, left wrist surgery. MEDICATIONS: The patient is on aspirin 81 mg p.o. daily, statin, Lipitor 80 mg p.o. daily, Plavix 75 mg p.o. daily, nitroglycerin 0.4 mg sublingual p.r.n., multivitamin 1 tablet daily, meclizine 25 mg p.o. t.i.d. p.r.n., prednisolone, Zantac 150 mg p.o. b.i.d., Claritin 10 mg p.o. daily, metoprolol succinate 6.25 mg p.o. daily. FAMILY HISTORY: No significant family history. SOCIAL HISTORY: Currently smoking 1 pack for 3.5 days. No alcohol use. No drug use. REVIEW OF SYMPTOMS: As per HPI. Rest of review of symptoms negative. PHYSICAL EXAMINATION: GENERAL: The patient is of moderate build, not in distress. VITAL SIGNS: Temperature 37.1, pulse 68, respiratory rate 20, blood pressure 102/54, oxygen 98% on room air. HEENT: No pallor, no icterus. Pupils equal, round, and reactive to light. NECK: No JVD, no neck masses, no carotid bruits. CARDIOVASCULAR: S1, S2 heard, regular rate and rhythm, no murmur, no gallop. RESPIRATORY SYSTEM: Clear to auscultation bilaterally. No wheezing, no crackles. ABDOMEN: Soft, bowel sounds present. Nontender. No distention. CENTRAL NERVOUS SYSTEM: Cranial nerves II-XII grossly intact. Nonfocal. EXTREMITIES: No edema, no erythema. LABORATORIES: Sodium 137, potassium 3.5, chloride 106, bicarbonate 26, BUN 11, creatinine 0.7, serum glucose 78, calcium 9, total creatinine kinase 67. Troponin I less than 0.015. WBC 8.7, hemoglobin 12.8, hematocrit 39.3, platelets 229. PT 9, INR 0.9, PTT 26.7. Chest x-ray, no acute findings seen on a chest x-ray. EKG: Normal sinus rhythm with rate of 71. No acute ST changes seen. ASSESSMENT AND PLAN: This is a 47-year-old female who presents with left-sided chest pain. 1. Left-sided chest pain with recent history of coronary artery disease with drug-eluting stent placement in LAD with some mild residual disease. Currently , EKG unremarkable. Troponin is negative. We will observe on tele floor. Serial cardiac enzymes, echocardiogram. Continue home medications of aspirin, Plavix, statin and beta drea. Follow echocardiogram, consult cardiology in a.m. 2. Hyperlipidemia. Continue statin. We will follow the fasting lipid profile. 3. Deep venous thrombosis prophylaxis, SCDs and TEDs for now. DISPOSITION: Observation on tele floor. Expect to discharge home and follow with family doctor and cardiology. Level 1 full code. Hospital Course This is a 47-year-old female who presents with left-sided chest pain. Left-sided chest pain H/O NSTEMI in April/2017 with drug-eluting stent placement in LAD with some mild residual disease EKG and Serial Peter -no ACS Appreciate Cardiology input Will have Exercise Stress ECHO this AM Continue home medications of aspirin, Plavix, statin and beta drea. Hyperlipidemia. Continue statin. We will follow the fasting lipid profile. Deep venous thrombosis prophylaxis, SCDs and TEDs for now. DISPOSITION Likely home following Stress test if Negative Total time spent on discharge = 35 minutes This includes examination of the patient, discharge planning, medication reconciliation, and communication with other providers. Discharge Instructions Date of Service Jun 29, 2017. Admission Reason for Admission: Left Sided Chest Pain Discharge Discharge Diagnosis / Problem: Chest pain -No ACS,Neg Stress ECHO,S/P RENETTA in LAD in Discharge Goals Goal(s): Prevent Disease Progression Activity Recommendations Activity Limitations: resume your previous activity . Instructions / Follow-Up Instructions / Follow-Up DR Oconnor on 07/06/17 at 11:05 AM. Keep regular follow up with Cardiology Current Hospital Diet Patient's current hospital diet: AHA Diet (Heart Healthy) Discharge Diet Recommended Diet: AHA Diet (Heart Healthy) Pending Studies Studies pending at discharge: no Laboratory Results Lipid Panel Test 06/29/17 05:11 Range/Units Triglycerides Level 60 0-150 mg/dl Cholesterol Level 115 0-200 mg/dl HDL Cholesterol 49 mg/dl Cholesterol/HDL Ratio 2.3 LDL Cholesterol, Calculated 54 mg/dl Medical Emergencies . Who to Call and When: Medical Emergencies: If at any time you feel your situation is an emergency, please call 911 immediately. . Non-Emergent Contact Non-Emergency issues call your: Primary Care Provider . Past History Medical & Surgical History: (1) CAD S/P percutaneous coronary angioplasty (2) Left sided chest pain (3) Migraines (4) Asthma (5) History of tubal ligation (6) S/P wrist surgery . "Provider Documentation" section prepared by Holly Melo. . VTE Core Measure Inpt VTE Proph given/why not?: SCD's <Electronically signed by Holly Melo M.D.> Signed: 06/29/17 1137 Additional Copies To Leon Oconnor M.D.
== END 2017-06-29 12:39 | disposition home or self-care (01) ==
LOC: C.EDB 23:06 → C.MED 06-29 00:51 → ENRESERV 06-29 01:06
PROVIDERS: ADMIT Internal Medicine; ATTEND Internal Medicine
DX: R07.9 Chest pain, unspecified (principal); I25.10 Atherosclerotic heart disease of native coronary artery without angina pectoris; I25.2 Old myocardial infarction; E78.5 Hyperlipidemia, unspecified; J45.909 Unspecified asthma, uncomplicated; F17.210 Nicotine dependence, cigarettes, uncomplicated; Z95.5 Presence of coronary angioplasty implant and graft; Z83.3 Family history of diabetes mellitus; Z82.49 Family history of ischemic heart disease and other diseases of the circulatory system; Z79.02 Long term (current) use of antithrombotics/antiplatelets; Z79.82 Long term (current) use of aspirin; Z79.899 Other long term (current) drug therapy

== ENCOUNTER 2021-02-22 18:53 | Observation (INO) ==
[2021-02-22] MEDS ORDERED: NITROGLYCERIN 2% OINTMENT 30GM TUBE EXT STA (20:02)
[2021-02-22] MEDS ORDERED: SODIUM CHLORIDE 0.9% 500 ML IV STA (20:02)
[2021-02-22] MEDS ORDERED: ASPIRIN CHEW 324 MG PO STA (20:02)
--- NOTE | 2021-02-22 20:09 | Emergency Department Note ---
History of Present Illness General Chief complaint: Chest Pain Stated complaint: CHEST PAIN, TINGLING IN ARMS/FINGERS Time Seen by Provider: 02/22/21 19:52 Source: patient History of Present Illness Provider complaint: Chest pain Onset (ago): day(s) Location: chest and left Radiation: non-radiation Pain Consistency: + intermittent Maximum Pain Intensity: 6 Quality: + burning and + other (Muscle pull) Relieved By: + none Associated symptoms: + chest pain and + shortness of breath; no cough, no diaphoresis, no fever/chills and no nausea/vomiting This is a 50-year-old female with a history of coronary artery disease presenting with chest pain for the past 2 days intermittently. The pain is located in the left side of her chest and radiates to the middle of her chest. It does not radiate to her arms or neck or back. She does state that she has some tingling down both arms. She initially stated that it felt like a muscle spasm but then today started feeling like a burning sensation. When she had her heart attack she stated that her chest felt burning as well 3 years ago. She had some mild shortness of breath associated with it but denies any diaphoresis or nausea. She currently rates her pain a 5 out of 10 in severity. No alleviating factors. She denies fever, cough or cold symptoms, abdominal pain, vomiting, diarrhea, leg swelling or pain or urinary symptoms. She has not had the Covid vaccine. Home Medications Medication Instructions Recorded Confirmed Type albuterol sulfate 2 puff INHALATION Q4 PRN 02/10/19 02/22/21 History aspirin 81 mg PO DAILY 02/10/19 02/22/21 History atorvastatin 80 mg PO DAILY 02/10/19 02/22/21 History bupropion HCl 150 mg PO DAILY 02/10/19 02/22/21 History meclizine 25 mg PO TID PRN 02/10/19 02/22/21 History metoprolol succinate 12.5 mg PO DAILY 02/10/19 02/22/21 History nitroglycerin 0.4 mg SUBLINGUAL UD PRN 02/10/19 02/22/21 History omeprazole 20 mg PO QAM 02/10/19 02/22/21 History sennosides [senna] 8.6 mg PO BID PRN 02/10/19 02/22/21 History cyclobenzaprine 10 mg PO TID PRN 02/22/21 02/22/21 History polyethylene glycol 3350 [Miralax] 17 g PO DAILY PRN 02/22/21 02/22/21 History topiramate See Rx Instructions .ROUTE .COMPLEX 02/22/21 02/22/21 History Allergies Allergy/AdvReac Type Severity Reaction Status Date / Time No Known Allergies Allergy Verified 02/22/21 20:55 Past Med/Surg History Medical History (Updated 02/22/21 @ 22:42 by Rubin Krishna MD) ACS (acute coronary syndrome) Asthma CAD S/P percutaneous coronary angioplasty Surgical History History of tubal ligation Social History Smoking Status: Current every day smoker Tobacco Type: Cigarettes Preferred Language: Malawian Feels Safe at Home: Yes Review of Systems See HPI for pertinent positives & negatives. and A total of 10 systems reviewed and were otherwise negative Physical Exam Vital Signs Vital Signs - 24 hr 02/22/21 18:59 02/22/21 19:59 02/22/21 20:06 Temperature 36.6 C Temperature Source Temporal Artery Scan Pulse Rate 70 61 71 Pulse Rate from SpO2 Sensor 63 66 Respiratory Rate 18 18 16 Respiratory Effort / Characteristics Respiratory Depth Respiratory Pattern Blood Pressure 103/75 119/68 91/64 L Blood Pressure Mean 84 85 73 Pulse Oximetry 99 98 99 Oxygen Delivery Method Room Air Room Air Room Air Sepsis Recent Fever Within 48 Hours No Sepsis New/Unexplained Change in Mental Status N/A Sepsis Action Taken by Nursing No Action Required 02/22/21 20:15 02/22/21 20:23 02/22/21 20:30 Temperature Temperature Source Pulse Rate 71 59 L Pulse Rate from SpO2 Sensor 69 59 L Respiratory Rate 17 15 Respiratory Effort / Characteristics Non-Labored Spontaneous Respiratory Depth Normal Respiratory Pattern Regular Blood Pressure 99/74 L 100/70 Blood Pressure Mean 82 80 Pulse Oximetry 99 99 Oxygen Delivery Method Room Air Room Air Room Air Sepsis Recent Fever Within 48 Hours Sepsis New/Unexplained Change in Mental Status Sepsis Action Taken by Nursing 02/22/21 21:00 02/22/21 21:30 Temperature Temperature Source Pulse Rate 63 57 L Pulse Rate from SpO2 Sensor 63 59 L Respiratory Rate 14 16 Respiratory Effort / Characteristics Respiratory Depth Respiratory Pattern Blood Pressure 103/73 99/62 L Blood Pressure Mean 83 74 Pulse Oximetry 98 98 Oxygen Delivery Method Room Air Room Air Sepsis Recent Fever Within 48 Hours Sepsis New/Unexplained Change in Mental Status Sepsis Action Taken by Nursing Constitutional: Vital signs reviewed. Eyes: Pupils are equal round reactive to light. Conjunctiva are noninjected. ENT: Pharynx is clear without erythema or exudate. Mucous membranes are moist. Neck supple without meningeal signs. Respiratory: Clear to auscultation bilaterally. Breath sounds are equal bilater ally. Cardiovascular: Regular rate and rhythm. No rubs or gallops. GI: Soft, nondistended and nontender. Bowel sounds are present. Musculoskeletal: No peripheral edema. No lower extremity tenderness. Integumentary: No cyanosis. or jaundice. Neurological: The patient is awake and alert. No focal deficits. Psychiatric: Normal affect. Not anxious appearing. Course Administered Medications Discontinued Medications Aspirin (Aspirin Chew 324 Mg) 243 mg PO NOW STA Stop: 02/22/21 20:03 Last Admin: 02/22/21 20:16 Dose: 243 mg Documented by: [id number] Sodium Chloride (Nss) 500 mls @ 999 mls/hr IV .Q31M STA Stop: 02/22/21 20:32 Last Admin: 02/22/21 20:16 Dose: 999 mls/hr Documented by: [id number] Nitroglycerin (Nitroglycerin 2% Ointment 30gm Tube) 0.5 inch EXT NOW STA Stop: 02/22/21 20:03 Last Admin: 02/22/21 20:16 Dose: 0.5 inch Documented by: [id number] Medical Decision Making Differential Diagnosis Unstable angina, CA, pleurisy, pneumothorax, pneumonia Medical Records Attestation: I reviewed the patient's medical records. I did perform a limited focused review of portions of the patient's old chart on the electronic medical record. The patient Was last seen here for chest pain in November 2019. She was discharged after evaluation in the ED. Home Medications Current Medication List: was personally reviewed by me Laboratory Data Attestation: I reviewed the patient's lab results. Result diagrams: 02/22/21 20:00 02/22/21 20:00 Lab Results 02/22/21 02/22/21 02/22/21 Range/Units 20:00 20:00 20:00 WBC 8.00 (4.8-10.8) K/uL RBC 4.20 (4.2-5.4) M/uL Hgb 12.6 (12.0-16.0) g/dL Hct 38.2 (37-47) % MCV 91.0 (80-100) fL MCH 30.0 (25-34) pg MCHC 33.0 (32-36) g/dL RDW Std Deviation 48.4 H (36.4-46.3) fL RDW Coeff of Mauricio 14.4 (11.5-14.5) % Plt Count 274 (130-400) K/uL MPV 11.7 H (7.4-10.4) fL Immature Gran % (Auto) 0.1 % Neut % (Auto) 55.9 % Lymph % (Auto) 35.9 % Branch % (Auto) 4.5 % Eos % (Auto) 3.0 % Baso % (Auto) 0.6 % Neut # (Auto) 4.47 (1.4-6.5) K/uL Lymph # (Auto) 2.87 (1.2-3.4) K/uL Branch # (Auto) 0.36 (0.11-0.59) K/uL Eos # (Auto) 0.24 (0-0.5) K/uL Baso # (Auto) 0.05 (0-0.2) K/uL Immature Gran # (Auto) 0.01 (0.00-0.02) K/uL APTT 22.5 (21.0-31.0) Seconds PTT Ratio 0.9 Sodium 142 (136-145) mmol/L Potassium 3.6 (3.5-5.1) mmol/L Chloride 112 H (98-107) mmol/L Carbon Dioxide 21 (21-32) mmol/L Anion Gap 8.0 (3-11) BUN 9 (7-18) mg/dl Creatinine 0.71 (0.6-1.2) mg/dl Est Cr Clr Drug Dosing 94.7 ml/min Est GFR ( Amer) 116.7 ml/min Est GFR (Non-Af Amer) 100.7 ml/min BUN/Creatinine Ratio 12.2 (10-20) Glucose 77 (70-99) mg/dl Calcium 8.8 (8.5-10.1) mg/dl Total Bilirubin 0.2 (0.2-1) mg/dl AST 10 L (15-37) U/L ALT 23 (12-78) U/L Alkaline Phosphatase 88 (45-117) U/L Troponin I < 0.015 (0-0.045) ng/ml Total Protein 7.3 (6.4-8.2) gm/dl Albumin 3.4 (3.4-5.0) gm/dl Globulin 3.9 (2.5-4.0) gm/dl Albumin/Globulin Ratio 0.9 (0.9-2) Lipase 170 (73-393) U/L COVID-19 Eval Order SARS-CoV-2 (PCR) (Negative) 02/22/21 02/22/21 Range/Units 20:04 20:04 WBC (4.8-10.8) K/uL RBC (4.2-5.4) M/uL Hgb (12.0-16.0) g/dL Hct (37-47) % MCV (80-100) fL MCH (25-34) pg MCHC (32-36) g/dL RDW Std Deviation (36.4-46.3) fL RDW Coeff of Mauricio (11.5-14.5) % Plt Count (130-400) K/uL MPV (7.4-10.4) fL Immature Gran % (Auto) % Neut % (Auto) % Lymph % (Auto) % Branch % (Auto) % Eos % (Auto) % Baso % (Auto) % Neut # (Auto) (1.4-6.5) K/uL Lymph # (Auto) (1.2-3.4) K/uL Branch # (Auto) (0.11-0.59) K/uL Eos # (Auto) (0-0.5) K/uL Baso # (Auto) (0-0.2) K/uL Immature Gran # (Auto) (0.00-0.02) K/uL APTT (21.0-31.0) Seconds PTT Ratio Sodium (136-145) mmol/L Potassium (3.5-5.1) mmol/L Chloride (98-107) mmol/L Carbon Dioxide (21-32) mmol/L Anion Gap (3-11) BUN (7-18) mg/dl Creatinine (0.6-1.2) mg/dl Est Cr Clr Drug Dosing ml/min Est GFR ( Amer) ml/min Est GFR (Non-Af Amer) ml/min BUN/Creatinine Ratio (10-20) Glucose (70-99) mg/dl Calcium (8.5-10.1) mg/dl Total Bilirubin (0.2-1) mg/dl AST (15-37) U/L ALT (12-78) U/L Alkaline Phosphatase (45-117) U/L Troponin I (0-0.045) ng/ml Total Protein (6.4-8.2) gm/dl Albumin (3.4-5.0) gm/dl Globulin (2.5-4.0) gm/dl Albumin/Globulin Ratio (0.9-2) Lipase (73-393) U/L COVID-19 Eval Order Covid19 at [facility] SARS-CoV-2 (PCR) NEGATIVE (Negative) Imaging Data Radiologist's Impression: Chest X-Ray 02/22/21 20:03 TWO VIEW CHEST CLINICAL HISTORY: Atypical chest pain. FINDINGS: PA and lateral chest radiographs are compared to study dated 11/16/2019. The cardiomediastinal silhouette is unremarkable. The lungs and pleural spaces are clear. There is no pneumothorax. The bony thorax appears intact. IMPRESSION: No active disease in the chest. ACT 112: Negative or not required by law. Electronically signed by: Hemant Michele M.D. 02/22/2021 8:47 PM ECG Data Attestation: I personally reviewed and interpreted this ECG as follows: Indication: + chest pain Rate (beats per minute): 67 Rhythm: + normal sinus ECG [place]: + Normal ECG ST segments: + ST depression and + T-wave inversions ECG Findings: no PVCs Comparison ECG Date: from (11/15/2019) Change: the following changes noted (ST depressions were present in the anterior lateral leads in 2019.) MDM Narrative I did evaluate the patient as noted above. The patient is presenting with chest pain. She states it feels similar to when she had her heart attack 3 years ago. I did treat her with aspirin p.o. She was also given nitroglycerin paste. IV access was established. She was given a bolus of normal saline IV. I did place an order for continuous cardiac monitoring. The monitor showed normal sinus rhythm at a rate of 65 bpm. I did order and personally review the patient's 12-lead EKG as described above. She has ST depressions in the anterior leads. These are present on her previous EKG from November 2019. I did order and personally reviewed the images of the patient's chest x-ray as described above. Her chest x-ray is unremarkable. I did order and review the patient's blood work as noted in the electronic medical record. CBC and electrolytes are unremarkable other than a chloride of 112. Troponin is negative. I did reassess the patient. Her chest pain is resolved. I did recommend hospitalization for further care and evaluation and repeat cardiac biomarkers. She was agreeable with this plan. I did discuss the case with the hospitalist and case finisher. Impression & Plan Acute chest pain Discharge Plan Visit Data Chief Complaint: Chest Pain Stated Complaint: CHEST PAIN, TINGLING IN ARMS/FINGERS ED Provider: Rubin Krishna Discharge Problem: Acute chest pain Patient Disposition: Admitted As Inpatient Forms Stand Alone Forms: [facility] Prescriptions Prescriptions: No Action atorvastatin 80 mg tablet 80 mg PO DAILY RF: 0 sennosides [senna] 8.6 mg Tablet 8.6 mg PO BID PRN (Reason: IF NO BM X2 DAYS) RF: 0 aspirin 81 mg Tablet,Delayed Release (Dr/Ec) 81 mg PO DAILY RF: 0 meclizine 25 mg Tablet 25 mg PO TID PRN (Reason: Dizziness) RF: 0 nitroglycerin 0.4 mg tablet, sublingual 0.4 mg sublingual UD PRN (Reason: chestpain) RF: 0 omeprazole 20 mg Capsule,Delayed Release(Dr/Ec) 20 mg PO QAM RF: 0 metoprolol succinate 25 mg tablet extended release 24 hr 12.5 mg PO DAILY RF: 0 albuterol sulfate 90 mcg/actuation HFA aerosol inhaler 2 puff inhalation Q4 PRN (Reason: cough/wheeze/sob) RF: 0 bupropion HCl 150 mg tablet extended release 24 hr 150 mg PO DAILY RF: 0 cyclobenzaprine 10 mg Tablet 10 mg PO TID PRN (Reason: MUSCLE SPASMS) RF: 0 topiramate 25 mg tablet See Rx Instructions .ROUTE .COMPLEX RF: 0 polyethylene glycol 3350 [Miralax] 17 gram/dose Powder 17 g PO DAILY PRN (Reason: Constipation) RF: 0 Referrals Referrals: PCP,NO [Primary Care Provider] -
[2021-02-22 20:20] LABS: Basophils # (auto) 0.05 K/uL (0-0.2); Basophils % (auto) 0.6 %; Eosinophils # (auto) 0.24 K/uL (0-0.5); Hematocrit (blood only) 38.2 % (37-47); Hemoglobin 12.6 g/dL (12.0-16.0); Immature Granulocytes # (auto) 0.01 K/uL (0.00-0.02); Immature Granulocytes % (auto) 0.1 %; Lymphocytes # (auto) 2.87 K/uL (1.2-3.4); Lymphocytes % (auto) 35.9 %; Mean Platelet Volume 11.7 fL (7.4-10.4); Monocytes # (auto) 0.36 K/uL (0.11-0.59); Monocytes % (auto) 4.5 %; Neutrophils # (auto) 4.47 K/uL (1.4-6.5); Neutrophils % (auto) 55.9 %; Platelet Count 274 K/uL (130-400); RDW Coefficient of Variation 14.4 % (11.5-14.5); RDW Standard Deviation 48.4 fL (36.4-46.3)
[2021-02-22 20:29] LABS: Partial Thromboplastin Ratio 0.9; Partial Thromboplastin Time 22.5 Seconds (21.0-31.0)
[2021-02-22 20:38] LABS: Alanine Aminotransferase 23 U/L (12-78); Albumin Level 3.4 gm/dl (3.4-5.0); Aspartate Aminotransferase 10 U/L (15-37); BUN Creatinine Ratio 12.2 (10-20); Blood Urea Nitrogen 9 mg/dl (7-18); Calcium 8.8 mg/dl (8.5-10.1); Carbon Dioxide 21 mmol/L (21-32); Chloride 112 mmol/L (98-107); Creatinine Clr Calc Pharmacy 94.7 ml/min; Est GFR (African American) 116.7 ml/min; Est GFR (Non-African American) 100.7 ml/min; Glucose 77 mg/dl (70-99); Lipase 170 U/L (73-393); Potassium 3.6 mmol/L (3.5-5.1); Sodium 142 mmol/L (136-145)
[2021-02-22 20:42] LABS: Albumin Globulin Ratio 0.9 (0.9-2); Alkaline Phosphatase 88 U/L (45-117); Bilirubin,Total 0.2 mg/dl (0.2-1); Globulin 3.9 gm/dl (2.5-4.0); Total Protein 7.3 gm/dl (6.4-8.2); Troponin I < 0.015 ng/ml (0-0.045)
--- NOTE | 2021-02-22 20:48 | XRay Report ---
TWO VIEW CHEST CLINICAL HISTORY: Atypical chest pain. FINDINGS: PA and lateral chest radiographs are compared to study dated 11/16/2019. The cardiomediastina l silhouette is unremarkable. The lungs and pleural spaces are clear. There is no pneumothorax. The bony thorax appears intact. IMPRESSION: No active disease in the chest. ACT 112: Negative or not required by law. Electronically signed by: Hemant Michele M.D. 02/22/2021 8:47 PM
[2021-02-23] MEDS ORDERED: SODIUM CHLORIDE 0.9% 1000ML 1,000 ML IV SCH (03:15)
[2021-02-23] MEDS ORDERED: CYCLOBENZAPRINE HCL 10 MG TAB PO PRN (04:48)
[2021-02-23] MEDS ORDERED: SENNA 8.6 MG TAB PO PRN (04:48)
[2021-02-23] MEDS ORDERED: NITROGLYCERIN SL 0.4 MG/TAB TAB SL PRN ×2 (04:48)
[2021-02-23] MEDS ORDERED: POLYETHYLENE (MIRALAX) 17 GM PACK PO PRN (04:48)
[2021-02-23] MEDS ORDERED: ALBUTEROL HFA 8 GM INHALER INH PRN (04:48)
[2021-02-23] MEDS ORDERED: ONDANSETRON INJ 2 MG/ML 2 ML VIAL IV PRN (04:48)
[2021-02-23] MEDS ORDERED: MECLIZINE HCL 25 MG TAB PO PRN (04:48)
[2021-02-23] MEDS ORDERED: ACETAMINOPHEN 325 MG TAB PO PRN (04:48)
[2021-02-23 05:48] LABS: Basophils # (auto) 0.04 K/uL (0-0.2); Basophils % (auto) 0.6 %; Eosinophils # (auto) 0.24 K/uL (0-0.5); Eosinophils % (auto) 3.6 %; Hematocrit (blood only) 35.2 % (37-47); Hemoglobin 11.4 g/dL (12.0-16.0); Lymphocytes # (auto) 2.82 K/uL (1.2-3.4); Lymphocytes % (auto) 42.2 %; Mean Corpuscular Hemoglobin 29.6 pg (25-34); Mean Corpuscular Hgb Conc 32.4 g/dL (32-36); Mean Corpuscular Volume 91.4 fL (80-100); Mean Platelet Volume 11.8 fL (7.4-10.4); Monocytes # (auto) 0.34 K/uL (0.11-0.59); Monocytes % (auto) 5.1 %; Neutrophils # (auto) 3.24 K/uL (1.4-6.5); Neutrophils % (auto) 48.5 %; Platelet Count 214 K/uL (130-400); RDW Coefficient of Variation 14.6 % (11.5-14.5); RDW Standard Deviation 49.1 fL (36.4-46.3); Red Blood Count 3.85 M/uL (4.2-5.4); White Blood Count 6.68 K/uL (4.8-10.8)
[2021-02-23 06:20] LABS: BUN Creatinine Ratio 15.1 (10-20); Blood Urea Nitrogen 10 mg/dl (7-18); Calcium 8.2 mg/dl (8.5-10.1); Carbon Dioxide 22 mmol/L (21-32); Chloride 116 mmol/L (98-107); Creatinine Clr Calc Pharmacy 102.7 ml/min; Est GFR (African American) 121.1 ml/min; Est GFR (Non-African American) 104.5 ml/min; Glucose 83 mg/dl (70-99); Potassium 3.4 mmol/L (3.5-5.1); Sodium 144 mmol/L (136-145)
[2021-02-23 06:25] LABS: Troponin I < 0.015 ng/ml (0-0.045)
[2021-02-23] MEDS ORDERED: PANTOprazole 40 MG TAB PO SCH (09:00)
[2021-02-23] MEDS ORDERED: METOPROLOL SUCC 25MG EXT REL TAB PO SCH (09:00)
[2021-02-23] MEDS ORDERED: POTASSIUM CHLORIDE CRTAB 20 MEQ TABCR PO SCH (09:00)
[2021-02-23] MEDS ORDERED: buPROPion XL 150 MG TABCR PO SCH (09:00)
[2021-02-23] MEDS ORDERED: ASPIRIN 81 MG ECTAB PO SCH (09:00)
[2021-02-23] MEDS ORDERED: ATORVASTATIN 40 MG TAB PO SCH (09:00)
--- NOTE | 2021-02-23 09:53 | History and Physical Report ---
DATE OF ADMISSION: 02/22/2021. CHIEF COMPLAINT: Chest pain. HISTORY OF PRESENT ILLNESS: This 50-year-old female with a past medical history significant for hyperlipidemia, history of CAD, history of hematuria, history of tobacco use disorder, presents with chest pain. The patient was in the afternoon going to work when she noticed muscle aches and pain all over the left chest radiating to the right side of chest, moderate in severity and then it turned into a burning sensation and also tingling in her arms and hands. She came to the ER. Received nitro paste. Currently, pain all resolved. Currently has no nausea. [place] some lightheaded, no shortness of breath, no cough, no fever, no chills, no abdominal pain, normal bowel and bladder movements. Had some headache, no earache, no runny nose, no sore throat, otherwise ambulates fine without any problems. ALLERGIES: No known drug allergies. PAST MEDICAL HISTORY: As mentioned above. PAST SURGICAL HISTORY: Coronary artery catheterization in 2017, hysteroscopy, endometrial ablation with ligation of oviduct, left wrist surgery. MEDICATIONS: The patient is on albuterol 2 puffs inhalation q. 4 hours p.r.n., aspirin 81 mg p.o. daily, atorvastatin 80 mg p.o. daily, bupropion 150 mg p.o. daily, cyclobenzaprine 10 mg p.o. t.i.d. p.r.n., meclizine 25 mg p.o. t.i.d. p.r.n., metoprolol succinate 12.5 mg p.o. daily, nitroglycerin 0.4 mg sublingual p.r.n., omeprazole 20 mg p.o. a.m., MiraLax 17 g p.o. daily p.r.n., Senokot 8.6 mg p.o. b.i.d. p.r.n., Topamax as directed. FAMILY HISTORY: Significant for maternal aunt has breast cancer. Sister has breast cancer. SOCIAL HISTORY: . Smokes half pack a day. No alcohol use. No drug use. REVIEW OF SYSTEMS: As per HPI. Rest of the review of systems negative. PHYSICAL EXAMINATION: GENERAL: The patient is moderately built, not in acute distress. VITAL SIGNS: Temperature 36.6, pulse 57, respiration 16, blood pressure 99/62, oxygen 98% on room air. HEENT: Pupils equal, round and reactive to light. Oral mucosa moist. NECK: No JVD or neck masses. CARDIOVASCULAR: S1 and S2 heard. Regular rate and rhythm. No murmur, no gallop. RESPIRATORY: Normal AP diameter. No accessory muscle use. No wheezing, no crackles. ABDOMEN: Soft, bowel sounds present. Nontender. No distention. CENTRAL NERVOUS SYSTEM: Cranial nerves II-XII grossly intact, nonfocal. EXTREMITIES: No edema, no erythema. LABORATORY DATA: WBC is 8, hemoglobin 12.6, hematocrit 38.2, platelets 274. Sodium 142, potassium 3.6, chloride 112, bicarbonate 21, BUN 9, creatinine 0.7, serum glucose 77, calcium 8.8, total bilirubin 0.2, AST 10, ALT 23, alkaline phosphatase 88, troponin I less than 0.015. Lipase 170. SARS-CoV-2 PCR negative. Chest x-ray, no active disease in the chest. EKG normal sinus rhythm, rate of 67, nonspecific ST abnormalities. No significant change was found. ASSESSMENT AND PLAN: This is a 50-year-old female presented with chest pain. PROBLEM LIST: 1. Chest pain. The patient has history of CAD, status post drug-eluting stent to the LAD. Patient on aspirin, statin, beta drea. EKG and troponins were negative. We will follow serial enzymes, repeat EKG and echocardiogram. Keep her n.p.o. after midnight. Consult cardiology in a.m. for further recommendation. Monitor in the med tele. 2. History of CAD, status post stent. Continue home aspirin, statin, and beta drea. 3. History of hyperlipidemia. Continue statin. 4. GERD. Continue omeprazole. 5. Constipation. Continue home medications. 6. History of tobacco abuse, gets counseling. 7. DVT prophylaxis. SCDs. DISPOSITION: Observation med tele. Expect discharge home and follow up with family doctor. Level 1 full code. Addendum: Winsome became hypotensive but was asymptomatic. Nitropaste was d/marichuy and fluid bolus given which improved BP. Job ID: [id number] [facility]ip
--- NOTE | 2021-02-23 10:02 | Cardiology Consultation ---
Date of Consultation February 23, 2021 Assessment & Plan (1) Left-sided chest wall pain: Troponin I has been undetectable x2 measurements last evening and again this morning. EKG performed on arrival last evening at 1900 revealed normal sinus rhythm at 67 bpm with mild nonspecific repolarization changes, unchanged compared to previous dating back to 2019. T wave inversion noted isolated to lead III, which is likely a variant of normal. Resting echocardiogram reveals normal wall motion, normal LVEF, and no significant valvular heart disease. The patient's discomfort is definitely reproduced with manipulating her neck and shoulder. She states that she has been adherent with her medications including aspirin. She is aware that Tylenol is the [id number] pain reliever of choice for her given her history of coronary heart disease. I think her work-up thus far is reassuring. We discussed options such as discharge nursing medications, or performing an exercise stress echocardiogram for further reassurance, however the patient states that she feels well, and she and I are both in agreement that that her symptoms are not reminiscent of her previous angina. Smoking cessation is of course encouraged. Of note, patient did have a change in her insurance, and she had contacted me several months ago stating that she needed to transition to a different cardiology provider. She is here to establish with one however. I recommended that she determined with local provider is in network for her perhaps with [facility] [place] [facility] and establish. Patient stable for discharge from cardiac perspective. History of Present Illness Attending Physician: Guerrero Loomis MD History of Present Illness Frances Beal is a 50 year old female seen in cardiology consultation per the request of Dr Corrigan for the evaluation of chest pain. Patient is well- known to the undersigned as I have followed her on an inpatient and outpatient basis in the past. Her cardiac history dates back to April, she presented with a non-ST segment elevation myocardial infarction and underwent PCI, drug- eluting stent to the LAD. She had recurrent symptoms prompting admission for observation and subsequent nonischemic exercise stress echocardiogram in June 2017. She notes yesterday she was in her normal state of health, getting into her car to go to work and she felt transient chest discomfort and a tingling sensation in her left arm and fingers. She states that she walks regularly especially at her job, and has no symptoms of chest discomfort that are elicited with aerobic exertion. This morning she feels better, but she feels that she is able to reproduce the discomfort with moving her neck and her left arm/shoulder. Allergies Allergy/AdvReac Type Severity Reaction Status Date / Time No Known Allergies Allergy Verified 02/22/21 20:55 Home Medications Medication Instructions Recorded Confirmed Type albuterol sulfate 2 puff INHALATION Q4 PRN 02/10/19 02/22/21 History aspirin 81 mg PO DAILY 02/10/19 02/22/21 History atorvastatin 80 mg PO DAILY 02/10/19 02/22/21 History bupropion HCl 150 mg PO DAILY 02/10/19 02/22/21 History meclizine 25 mg PO TID PRN 02/10/19 02/22/21 History metoprolol succinate 12.5 mg PO DAILY 02/10/19 02/22/21 History nitroglycerin 0.4 mg SUBLINGUAL UD PRN 02/10/19 02/22/21 History omeprazole 20 mg PO QAM 02/10/19 02/22/21 History sennosides [senna] 8.6 mg PO BID PRN 02/10/19 02/22/21 History cyclobenzaprine 10 mg PO TID PRN 02/22/21 02/22/21 History polyethylene glycol 3350 [Miralax] 17 g PO DAILY PRN 02/22/21 02/22/21 History topiramate See Rx Instructions .ROUTE .COMPLEX 02/22/21 02/22/21 History Patient History Medical History ACS (acute coronary syndrome) Asthma CAD S/P percutaneous coronary angioplasty Surgical History History of tubal ligation Social History Smoking Status: Current every day smoker Tobacco Type: Cigarettes Second Hand Exposure: Yes; Do You Dip or Chew Tobacco: No; Tobacco Cessation Education Requested by Patient: No Hx Alcohol Use: Yes Hx Substance Use: No Preferred Language: Kyrgyz Communication Ability: Effective Marketing Liaison Required: No Beliefs That Will Affect Care: None Current Living Situation: Family Other Information That Helps Us Care for You: No Feels Safe at Home: Yes Safety Concerns: Feels Safe At This Time Assistive Devices: None Review of Systems Review of Systems: All systems reviewed & are unremarkable except as noted in HPI & below Physical Exam Physical Exam: Temp Pulse Resp BP Pulse Ox 36.6 C 70 20 98/66 L 98 02/23/21 07:41 02/23/21 07:41 02/23/21 07:41 02/23/21 07:41 02/23/21 07:41 Constitutional: WD/WN, vitals as above Respiratory: normal respiratory effort, lungs clear to auscultation Cardiovascular: RRR, no murmur, no edema Gastrointestinal (Abdomen): normal bowel sounds, soft, nontender, no hepatosplenomegaly Neurologic: PERRL, EOMI, accommodation nl, no face palsy, no dysarthria Results & Data ([facility]) Vital Signs (Past 12 Hours) Vital Signs Temp Pulse Pulse Resp BP BP Pulse Ox 02/23/21 07:41 36.6 C 70 20 98/66 L 98 02/23/21 06:19 51 L 02/23/21 06:12 66 02/23/21 04:48 36.4 C L 56 L 18 101/69 99 02/23/21 04:10 48 L 12 90/61 L 95 02/23/21 04:00 50 L 12 95/61 L 96 02/23/21 03:50 52 L 13 101/60 97 02/23/21 03:40 54 L 15 104/65 96 02/23/21 03:30 53 L 13 97/64 L 95 02/23/21 03:20 49 L 14 97/61 L 96 02/23/21 03:10 53 L 15 97/62 L 95 02/23/21 03:00 50 L 13 91/54 L 96 02/23/21 02:53 86 23 84/50 L 95 02/23/21 02:30 46 L 13 87/54 L 96 02/23/21 02:08 50 L 15 86/59 L 97 02/23/21 01:58 50 L 14 89/60 L 97 02/23/21 01:50 53 L 13 90/58 L 95 02/23/21 01:41 53 L 15 82/47 L 97 02/23/21 01:40 57 L 15 83/49 L 97 02/23/21 01:38 63 17 77/57 L 96 02/23/21 01:37 62 18 80/51 L 96 02/23/21 01:30 73 17 82/53 L 97 02/23/21 01:00 57 L 12 86/54 L 97 02/23/21 00:00 60 17 99/52 L 98 02/22/21 23:31 79 17 103/61 98 02/22/21 23:00 59 L 17 93/62 L 98 02/22/21 22:30 159 H 18 87/58 L 98 Laboratory Results Cardiac Enzymes 02/22/21 02/23/21 02/23/21 Range/Units 20:00 05:24 05:24 AST 10 L (15-37) U/L Troponin I < 0.015 Cancelled < 0.015 (0-0.045) ng/ml Coagulation 02/22/21 Range/Units 20:00 APTT 22.5 (21.0-31.0) Seconds CBC 02/22/21 02/23/21 Range/Units 20:00 05:24 WBC 8.00 6.68 (4.8-10.8) K/uL RBC 4.20 3.85 L (4.2-5.4) M/uL Hgb 12.6 11.4 L (12.0-16.0) g/dL Hct 38.2 35.2 L (37-47) % Plt Count 274 214 (130-400) K/uL Neut # (Auto) 4.47 3.24 (1.4-6.5) K/uL Lymph # (Auto) 2.87 2.82 (1.2-3.4) K/uL [place] # (Auto) 0.36 0.34 (0.11-0.59) K/uL Eos # (Auto) 0.24 0.24 (0-0.5) K/uL Baso # (Auto) 0.05 0.04 (0-0.2) K/uL Comprehensive Metabolic Panel 02/22/21 02/23/21 Range/Units 20:00 05:24 Sodium 142 144 (136-145) mmol/L Potassium 3.6 3.4 L (3.5-5.1) mmol/L Chloride 112 H 116 H (98-107) mmol/L Carbon Dioxide 21 22 (21-32) mmol/L BUN 9 10 (7-18) mg/dl Creatinine 0.71 0.66 (0.6-1.2) mg/dl Glucose 77 83 (70-99) mg/dl Calcium 8.8 8.2 L (8.5-10.1) mg/dl AST 10 L (15-37) U/L ALT 23 (12-78) U/L Alkaline Phosphatase 88 (45-117) U/L Total Protein 7.3 (6.4-8.2) gm/dl Albumin 3.4 (3.4-5.0) gm/dl Intake and Output 02/22/21 02/23/21 02/23/21 22:59 06:59 14:59 Intake Total 500 / 500 Balance 500 / 500 Intake: IV 500 / 500 Sodium Chloride 0.9% 500 ml @ 500 / 500 999 mls/hr IV .Q31M STA Rx#: [id number] Other: Other Intake Source NPO Weight 76.2 kg 77.4 kg Weight Measurement Method Standing Scale
--- NOTE | 2021-02-23 10:41 | Hospitalist Progress Note ---
Date of Service February 23, 2021 Assessment & Plan (1) Acute chest pain: (2) Left-sided chest wall pain: ASSESSMENT AND PLAN: This is a 50-year-old female presented with chest pain. 1. Chest pain. The patient has history of CAD, status post drug-eluting stent to the LAD. Patient on aspirin, statin, beta drea. EKG and troponins were negative. Monitor in the med tele. repeat EKG Echocardiogram -the study was technically adequate. There is normal LV wall thickness. LV wall motion is normal. No regional wall motion abnormalities noted. LV systolic function is normal. LVEF 60 to 65%. LV diastolic function is normal. There is no significant valvular heart disease. Cardiology consulted for further recommendation -patient discomfort is reproducible with manipulating her neck and shoulder, seem musculoskeletal in origin current work-up seems reassuring, Discussed in detail with the patient, recommend smoking cessation and close follow-up with healthcare providers, family medicine and cardiology. Patient is however now with different insurance, and will need providers in different network, will help arrange follow-ups. 2. History of CAD, status post stent. Continue home aspirin, statin, and beta drea. 3. History of hyperlipidemia. Continue statin. 4. GERD. Continue omeprazole. 5. Constipation. Continue home medications. 6. History of tobacco abuse - counseled, started nicotine patch DVT prophylaxis. SCDs. 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 Admission and Anticipated Discharge Date Admission Date: February 23, 2021 Subjective Patient seen in follow-up of chest pain Currently sitting up in the bed, in no acute distress, denies any shortness of breath, dizziness, lightheadedness Feels that her chest discomfort was musculoskeletal in origin, it is reproducible with certain shoulder neck movements Trop negative Cardiology consulted Review of Systems Review of Systems: All systems reviewed & are unremarkable except as noted in HPI & below Constitutional: no fever and no chills Respiratory: no cough and no dyspnea Cardiovascular: no chest pain and no palpitations Gastrointestinal: no abdominal pain and no vomiting Physical Exam Physical Exam: GENERAL: The patient is moderately built, not in acute distress. HEENT: NC/AT, Pupils equal, round and reactive to light. Oral mucosa moist. NECK: No JVD or neck masses. CARDIOVASCULAR: S1 and S2 heard. Regular rate and rhythm. No murmur, no gallop. RESPIRATORY: Normal AP diameter. No accessory muscle use. No wheezing, no crackles. ABDOMEN: Soft, bowel sounds present. Nontender. No distention. NEURO: Alert and oriented X3, no facial symmetry, speech fluent, moves extremities EXTREMITIES: No edema, no erythema. Results & Data Results & Data ([facility]) Vital Signs (Past 12 Hours) Vital Signs Temp Pulse Pulse Resp BP BP Pulse Ox 02/23/21 07:41 36.6 C 70 20 98/66 L 98 02/23/21 06:19 51 L 02/23/21 06:12 66 02/23/21 04:48 36.4 C L 56 L 18 101/69 99 02/23/21 04:10 48 L 12 90/61 L 95 02/23/21 04:00 50 L 12 95/61 L 96 02/23/21 03:50 52 L 13 101/60 97 02/23/21 03:40 54 L 15 104/65 96 02/23/21 03:30 53 L 13 97/64 L 95 02/23/21 03:20 49 L 14 97/61 L 96 02/23/21 03:10 53 L 15 97/62 L 95 02/23/21 03:00 50 L 13 91/54 L 96 02/23/21 02:53 86 23 84/50 L 95 02/23/21 02:30 46 L 13 87/54 L 96 02/23/21 02:08 50 L 15 86/59 L 97 02/23/21 01:58 50 L 14 89/60 L 97 02/23/21 01:50 53 L 13 90/58 L 95 02/23/21 01:41 53 L 15 82/47 L 97 02/23/21 01:40 57 L 15 83/49 L 97 02/23/21 01:38 63 17 77/57 L 96 02/23/21 01:37 62 18 80/51 L 96 02/23/21 01:30 73 17 82/53 L 97 02/23/21 01:00 57 L 12 86/54 L 97 02/23/21 00:00 60 17 99/52 L 98 02/22/21 23:31 79 17 103/61 98 02/22/21 23:00 59 L 17 93/62 L 98 Laboratory Results 02/23/21 02/23/21 02/23/21 Range/Units 05:24 05:24 05:24 WBC 6.68 (4.8-10.8) K/uL RBC 3.85 L (4.2-5.4) M/uL Hgb 11.4 L (12.0-16.0) g/dL Hct 35.2 L (37-47) % MCV 91.4 (80-100) fL MCH 29.6 (25-34) pg MCHC 32.4 (32-36) g/dL RDW Std Deviation 49.1 H (36.4-46.3) fL RDW Coeff of Mauricio 14.6 H (11.5-14.5) % Plt Count 214 (130-400) K/uL MPV 11.8 H (7.4-10.4) fL Immature Gran % (Auto) 0.0 % Neut % (Auto) 48.5 % Lymph % (Auto) 42.2 % [place] % (Auto) 5.1 % Eos % (Auto) 3.6 % Baso % (Auto) 0.6 % Neut # (Auto) 3.24 (1.4-6.5) K/uL Lymph # (Auto) 2.82 (1.2-3.4) K/uL [place] # (Auto) 0.34 (0.11-0.59) K/uL Eos # (Auto) 0.24 (0-0.5) K/uL Baso # (Auto) 0.04 (0-0.2) K/uL Immature Gran # (Auto) 0.00 (0.00-0.02) K/uL APTT (21.0-31.0) Seconds PTT Ratio Sodium 144 (136-145) mmol/L Potassium 3.4 L (3.5-5.1) mmol/L Chloride 116 H (98-107) mmol/L Carbon Dioxide 22 (21-32) mmol/L Anion Gap 6.0 (3-11) BUN 10 (7-18) mg/dl Creatinine 0.66 (0.6-1.2) mg/dl Est Cr Clr Drug Dosing 102.7 ml/min Est GFR ( Amer) 121.1 ml/min Est GFR (Non-Af Amer) 104.5 ml/min BUN/Creatinine Ratio 15.1 (10-20) Glucose 83 (70-99) mg/dl Calcium 8.2 L (8.5-10.1) mg/dl Magnesium 2.0 (1.8-2.4) mg/dl Total Bilirubin (0.2-1) mg/dl AST (15-37) U/L ALT (12-78) U/L Alkaline Phosphatase (45-117) U/L Troponin I < 0.015 Cancelled (0-0.045) ng/ml Total Protein (6.4-8.2) gm/dl Albumin (3.4-5.0) gm/dl Globulin (2.5-4.0) gm/dl Albumin/Globulin Ratio (0.9-2) Lipase (73-393) U/L COVID-19 Eval Order SARS-CoV-2 (PCR) (Negative) 02/22/21 02/22/21 02/22/21 Range/Units 20:04 20:04 20:00 WBC (4.8-10.8) K/uL RBC (4.2-5.4) M/uL Hgb (12.0-16.0) g/dL Hct (37-47) % MCV (80-100) fL MCH (25-34) pg MCHC (32-36) g/dL RDW Std Deviation (36.4-46.3) fL RDW Coeff of Mauricio (11.5-14.5) % Plt Count (130-400) K/uL MPV (7.4-10.4) fL Immature Gran % (Auto) % Neut % (Auto) % Lymph % (Auto) % [place] % (Auto) % Eos % (Auto) % Baso % (Auto) % Neut # (Auto) (1.4-6.5) K/uL Lymph # (Auto) (1.2-3.4) K/uL [place] # (Auto) (0.11-0.59) K/uL Eos # (Auto) (0-0.5) K/uL Baso # (Auto) (0-0.2) K/uL Immature Gran # (Auto) (0.00-0.02) K/uL APTT 22.5 (21.0-31.0) Seconds PTT Ratio 0.9 Sodium (136-145) mmol/L Potassium (3.5-5.1) mmol/L Chloride (98-107) mmol/L Carbon Dioxide (21-32) mmol/L Anion Gap (3-11) BUN (7-18) mg/dl Creatinine (0.6-1.2) mg/dl Est Cr Clr Drug Dosing ml/min Est GFR ( Amer) ml/min Est GFR (Non-Af Amer) ml/min BUN/Creatinine Ratio (10-20) Glucose (70-99) mg/dl Calcium (8.5-10.1) mg/dl Magnesium (1.8-2.4) mg/dl Total Bilirubin (0.2-1) mg/dl AST (15-37) U/L ALT (12-78) U/L Alkaline Phosphatase (45-117) U/L Troponin I (0-0.045) ng/ml Total Protein (6.4-8.2) gm/dl Albumin (3.4-5.0) gm/dl Globulin (2.5-4.0) gm/dl Albumin/Globulin Ratio (0.9-2) Lipase (73-393) U/L COVID-19 Eval Order Covid19 at [facility] SARS-CoV-2 (PCR) NEGATIVE (Negative) 02/22/21 02/22/21 Range/Units 20:00 20:00 WBC 8.00 (4.8-10.8) K/uL RBC 4.20 (4.2-5.4) M/uL Hgb 12.6 (12.0-16.0) g/dL Hct 38.2 (37-47) % MCV 91.0 (80-100) fL MCH 30.0 (25-34) pg MCHC 33.0 (32-36) g/dL RDW Std Deviation 48.4 H (36.4-46.3) fL RDW Coeff of Mauricio 14.4 (11.5-14.5) % Plt Count 274 (130-400) K/uL MPV 11.7 H (7.4-10.4) fL Immature Gran % (Auto) 0.1 % Neut % (Auto) 55.9 % Lymph % (Auto) 35.9 % [place] % (Auto) 4.5 % Eos % (Auto) 3.0 % Baso % (Auto) 0.6 % Neut # (Auto) 4.47 (1.4-6.5) K/uL Lymph # (Auto) 2.87 (1.2-3.4) K/uL [place] # (Auto) 0.36 (0.11-0.59) K/uL Eos # (Auto) 0.24 (0-0.5) K/uL Baso # (Auto) 0.05 (0-0.2) K/uL Immature Gran # (Auto) 0.01 (0.00-0.02) K/uL APTT (21.0-31.0) Seconds PTT Ratio Sodium 142 (136-145) mmol/L Potassium 3.6 (3.5-5.1) mmol/L Chloride 112 H (98-107) mmol/L Carbon Dioxide 21 (21-32) mmol/L Anion Gap 8.0 (3-11) BUN 9 (7-18) mg/dl Creatinine 0.71 (0.6-1.2) mg/dl Est Cr Clr Drug Dosing 94.7 ml/min Est GFR ( Amer) 116.7 ml/min Est GFR (Non-Af Amer) 100.7 ml/min BUN/Creatinine Ratio 12.2 (10-20) Glucose 77 (70-99) mg/dl Calcium 8.8 (8.5-10.1) mg/dl Magnesium (1.8-2.4) mg/dl Total Bilirubin 0.2 (0.2-1) mg/dl AST 10 L (15-37) U/L ALT 23 (12-78) U/L Alkaline Phosphatase 88 (45-117) U/L Troponin I < 0.015 (0-0.045) ng/ml Total Protein 7.3 (6.4-8.2) gm/dl Albumin 3.4 (3.4-5.0) gm/dl Globulin 3.9 (2.5-4.0) gm/dl Albumin/Globulin Ratio 0.9 (0.9-2) Lipase 170 (73-393) U/L COVID-19 Eval Order SARS-CoV-2 (PCR) (Negative) Medications Administered Current Inpatient Medications Acetaminophen (Acetaminophen 325 Mg Tab) 650 mg PO Q4H PRN PRN Reason: Pain or Fever Stop: 03/25/21 04:47 Albuterol (Albuterol Hfa 8 Gm Inhaler) 2 puffs INH Q4 PRN PRN Reason: cough/wheeze/sob Stop: 03/25/21 04:47 Aspirin (Aspirin 81 Mg Ectab) 81 mg PO DAILY [facility] Stop: 03/25/21 08:59 Last Admin: 02/23/21 09:11 Dose: 81 mg Documented by: Atorvastatin Calcium (Atorvastatin 40 Mg Tab) 80 mg PO DAILY [facility] Stop: 03/25/21 08:59 Last Admin: 02/23/21 09:11 Dose: 80 mg Documented by: Bupropion HCl (Bupropion Xl 150 Mg Tabcr) 150 mg PO DAILY [facility] Stop: 03/25/21 08:59 Last Admin: 02/23/21 09:11 Dose: 150 mg Documented by: Cyclobenzaprine HCl (Cyclobenzaprine Hcl 10 Mg Tab) 10 mg PO TID PRN PRN Reason: MUSCLE SPASMS Stop: 03/25/21 04:47 Sodium Chloride (Nss 1000ml) 1,000 mls @ 100 mls/hr IV .Q10H [facility] Stop: 03/25/21 03:14 Last Admin: 02/23/21 03:10 Dose: 100 mls/hr Documented by: Meclizine HCl (Meclizine Hcl 25 Mg Tab) 25 mg PO TID PRN PRN Reason: Dizziness Stop: 03/25/21 04:47 Metoprolol Succinate (Metoprolol Succ 25mg Ext Rel Tab) 12.5 mg PO DAILY [facility] Stop: 03/25/21 08:59 Last Admin: 02/23/21 09:14 Dose: Not Given Documented by: Nitroglycerin (Nitroglycerin Sl 0.4 Mg/Tab Tab) 0.4 mg SL UD PRN PRN Reason: chestpain Stop: 03/25/21 04:47 Ondansetron HCl (Ondansetron Inj 2 Mg/Ml 2 Ml Vial) 4 mg IV Q6H PRN PRN Reason: Nausea Stop: 03/25/21 04:47 Pantoprazole Sodium (Pantoprazole 40 Mg Tab) 40 mg PO QAM [facility] Stop: 03/25/21 08:59 Last Admin: 02/23/21 09:12 Dose: 40 mg Documented by: Polyethylene Glycol (Polyethylene (Miralax) 17 Gm Pack) 17 gm PO DAILY PRN PRN Reason: Constipation Stop: 03/25/21 04:47 Potassium Chloride (Potassium Chloride Crtab 20 Meq Tabcr) 40 meq PO TODAY@0900 [facility] Stop: 02/23/21 23:59 Last Admin: 02/23/21 09:41 Dose: 40 meq Documented by: Sennosides (Senna 8.6 Mg Tab) 8.6 mg PO BID PRN PRN Reason: IF NO BM X2 DAYS Stop: 03/25/21 04:47 Topiramate (Topiramate 25 Mg Tab) 25 mg PO DAILY@1200 [facility] Stop: 03/25/21 11:59 Topiramate (Topiramate 25 Mg Tab) 50 mg PO HS [facility] Stop: 03/25/21 20:59
[2021-02-23] MEDS ORDERED: NICOTINE 7 MG/24 HR TDSY TD SCH (10:45)
[2021-02-23] MEDS ORDERED: TOPIRAMATE 25 MG TAB PO SCH ×2 (12:00→21:00)
--- NOTE | 2021-02-23 12:03 | Electrocardiogram Report ---
Test Reason : Blood Pressure : / mmHG Vent. Rate : 067 BPM Atrial Rate : 067 BPM P-R Int : 114 ms QRS Dur : 082 ms QT Int : 368 ms P-R-T Axes : 036 038 013 degrees QTc Int : 388 ms Normal sinus rhythm Nonspecific ST abnormality Abnormal ECG When compared with ECG of 15-NOV-2019 23:57, No significant change was found Confirmed by Du Francois ([id number]) on 02/23/2021 12:02:43 PM Referred By: REFERRED SELF Confirmed By:Perfecto Francois
--- NOTE | 2021-02-23 12:11 | Discharge Summary ---
Date of Service February 23, 2021 Admission HPI Per Admitting Provider This 50-year-old female with a past medical history significant for hyperlipidemia, history of CAD, history of hematuria, history of tobacco use disorder, presents with chest pain. The patient was in the afternoon going to work when she noticed muscle aches and pain all over the left chest radiating to the right side of chest, moderate in severity and then it turned into a burning sensation and also tingling in her arms and hands. She came to the ER. Received nitro paste. Currently, pain all resolved. Currently has no nausea. [place] some lightheaded, no shortness of breath, no cough, no fever, no chills, no abdominal pain, normal bowel and bladder movements. Had some headache, no earache, no runny nose, no sore throat, otherwise ambulates fine without any problems. Admission Exam Per Admitting Provider GENERAL: The patient is moderately built, not in acute distress. VITAL SIGNS: Temperature 36.6, pulse 57, respiration 16, blood pressure 99/62, oxygen 98% on room air. HEENT: Pupils equal, round and reactive to light. Oral mucosa moist. NECK: No JVD or neck masses. CARDIOVASCULAR: S1 and S2 heard. Regular rate and rhythm. No murmur, no gallop. RESPIRATORY: Normal AP diameter. No accessory muscle use. No wheezing, no crackles. ABDOMEN: Soft, bowel sounds present. Nontender. No distention. CENTRAL NERVOUS SYSTEM: Cranial nerves II-XII grossly intact, nonfocal. EXTREMITIES: No edema, no erythema. Principal Diagnosis Chest pain, musculoskeletal Discharge Exam GENERAL: The patient is moderately built, not in acute distress. HEENT: NC/AT, Pupils equal, round and reactive to light. Oral mucosa moist. NECK: No JVD or neck masses. CARDIOVASCULAR: S1 and S2 heard. Regular rate and rhythm. No murmur, no gallop. RESPIRATORY: Normal AP diameter. No accessory muscle use. No wheezing, no crackles. ABDOMEN: Soft, bowel sounds present. Nontender. No distention. NEURO: Alert and oriented X3, no facial symmetry, speech fluent, moves extremities EXTREMITIES: No edema, no erythema. Discharge Data Allergies Allergy/AdvReac Type Severity Reaction Status Date / Time No Known Allergies Allergy Verified 02/22/21 20:55 Consultations 02/23/21 08:00 Consult Cardiology Routine Hospital Course (1) Acute chest pain: (2) Left-sided chest wall pain: ASSESSMENT AND PLAN: This is a 50-year-old female presented with chest pain. 1. Chest pain. The patient has history of CAD, status post drug-eluting stent to the LAD. Patient on aspirin, statin, beta drea. EKG and troponins were negative. Monitor in the med tele. repeat EKG Echocardiogram -the study was technically adequate. There is normal LV wall thickness. LV wall motion is normal. No regional wall motion abnormalities noted. LV systolic function is normal. LVEF 60 to 65%. LV diastolic function is normal. There is no significant valvular heart disease. Cardiology consulted for further recommendation -patient discomfort is reproducible with manipulating her neck and shoulder, seem musculoskeletal in origin current work-up seems reassuring, Discussed in detail with the patient, recommend smoking cessation and close follow-up with healthcare providers, family medicine and cardiology. Patient is however now with different insurance, and will need providers in different network, will help arrange follow-ups. Follow-up appointments with PCP and cardiology, were arranged, with [facility]. 2. History of CAD, status post stent. Continue home aspirin, statin, and beta drea. 3. History of hyperlipidemia. Continue statin. 4. GERD. Continue omeprazole. 5. Constipation. Continue home medications. 6. History of tobacco abuse - counseled, started nicotine patch DISPOSITION: Plan to discharge home and follow up with family doctor and collection team lead. Total Time Total Time Spent Total Time Spent (In Minutes): 35 Total Time Includes: Examination of the Patient, Discharge Planning, Medication Reconciliation and Communication With Other Providers Discharge Plan Discharge Items Patient Disposition: Home - Self-Care Reason For Visit: CHEST PAIN Discharge Diagnosis: Chest pain, musculoskeletal Activity: Per Instructions section Non-emergency contact: Primary Care Provider and Childcare Center Administrator Call non-emergency contact if: you have any medication questions and your symptoms worsen Follow-up/Referrals: Raymond Perez MD [Physician] - 02/25/21 10:45 am ([address] [place], [place]) Topher Lucio DO [Physician] - 02/26/21 12:45 pm ([address] [place] [address], [facility]) Diet: Heart Healthy Addtl Attending Provider Instructions: It is important that you follow-up with a family physician, and a collection team lead. The appointments with your new family physician and your new collection team lead, from [facility], where scheduled for you as above. It is also strongly recommended that you quit smoking, consider calling [employer], the free smoking cessation line. Prescription for nicotine patches was also sent to you. Pending Studies at Discharge: No Stand-Alone Forms: My [facility], Smoking Cessation Medications and DC Order Prescriptions: New nicotine 7 mg/24 hr Patch 24 Hour 7 mg transdermal QAM Qty: 14 RF: 0 Continued atorvastatin 80 mg tablet 80 mg PO DAILY RF: 0 sennosides [senna] 8.6 mg Tablet 8.6 mg PO BID PRN (Reason: IF NO BM X2 DAYS) RF: 0 aspirin 81 mg Tablet,Delayed Release (Dr/Ec) 81 mg PO DAILY RF: 0 meclizine 25 mg Tablet 25 mg PO TID PRN (Reason: Dizziness) RF: 0 nitroglycerin 0.4 mg tablet, sublingual 0.4 mg sublingual UD PRN (Reason: chestpain) RF: 0 omeprazole 20 mg Capsule,Delayed Release(Dr/Ec) 20 mg PO QAM RF: 0 metoprolol succinate 25 mg tablet extended release 24 hr 12.5 mg PO DAILY RF: 0 albuterol sulfate 90 mcg/actuation HFA aerosol inhaler 2 puff inhalation Q4 PRN (Reason: cough/wheeze/sob) RF: 0 bupropion HCl 150 mg tablet extended release 24 hr 150 mg PO DAILY RF: 0 cyclobenzaprine 10 mg Tablet 10 mg PO TID PRN (Reason: MUSCLE SPASMS) RF: 0 topiramate 25 mg tablet See Rx Instructions .ROUTE .COMPLEX RF: 0 polyethylene glycol 3350 [Miralax] 17 gram/dose Powder 17 g PO DAILY PRN (Reason: Constipation) RF: 0 Discharge Orders: Discharge Order (Routine); Ordered 02/23/21 Ordered By: Guerrero Loomis Admission Data Admit Date/Time: 02/22/21 22:40 Attending Provider: Guerrero Loomis Admit Provider: Steve Corrigan Primary Care Provider: PCP,NO Other Providers: Andre Guillermo ; Hu James ; Codey Mills ; Rubin Baker ; Low Henley ; Leon Rosas ; Sarah Noguera ; Marimar Calzada ; Mel Paul. ; Mal Boone
--- NOTE | 2021-02-23 12:14 | Electrocardiogram Report ---
Test Reason : Blood Pressure : / mmHG Vent. Rate : 065 BPM Atrial Rate : 065 BPM P-R Int : 140 ms QRS Dur : 078 ms QT Int : 406 ms P-R-T Axes : 066 072 015 degrees QTc Int : 422 ms Normal sinus rhythm with sinus arrhythmia Low voltage QRS Nonspecific ST abnormality Abnormal ECG When compared with ECG of 22-FEB-2021 19:03, (unconfirmed) No significant change was found Confirmed by Du Francois ([id number]) on 02/23/2021 12:13:53 PM Referred By: REFERRED SELF Confirmed By:Perfecto Francois
== END 2021-02-23 13:59 | disposition home or self-care (01) ==
LOC: 2W 18:53 → ED 18:53 → 2W 02-23 04:29

== ENCOUNTER 2025-08-02 23:15 | Observation (INO) ==
--- NOTE | 2025-08-02 23:27 | Emergency Department Note ---
Impression & Plan Episodic lightheadedness ADMIT ED Provider Note HPI: History obtained from patient. The patient is a 55-year-old female with history of coronary artery disease, who presents the emergency department with a chief complaint of a lightheaded sensation and presyncopal sensation. Patient states this occurred shortly prior to arrival to the ED. Patient states she just had shoulder surgery on Monday through [facility], she states that she was taking off her bandages with the assistance of her daughter earlier ton when she began to have a sensation of a "hot flash" and felt very lightheaded and dizzy. Patient states she felt as if she was going to pass out. Patient denies any chest pain or shortness of breath with the event, patient states that she does have a moderate headache on arrival. On arrival here to the ED the patient is alert, she does not have any focal deficits, she denies any chest pain or shortness of breath. ROS: - Per HPI Differential Diagnosis: Vasovagal event, peripheral vertigo, central vertigo/posterior circulation stroke, intracranial hemorrhage, migraine headache, tension headache, pulmonary embolism, amongst other potential pathologies. *Outpatient medications and allergy history reviewed. PE: General: Alert HEENT: Normocephalic, trachea midline Eyes: Extraocular eye movement is intact, no scleral erythema Pulmonary: Clear to auscultation bilaterally, no wheezing Cardio: Regular rate and rhythm GI: Abdomen is soft to palpation : No suprapubic tenderness MSK: Right shoulder in sling status post surgical repair, surgical wounds appear to be intact without surrounding erythema, otherwise no evidence of trauma or malformation of the extremities, no edema Skin: No evidence of rash Neuro: Alert, no focal deficits, symmetrical facial movements are appreciated, patient ambulates all extremity spontaneously without issue Psychiatric: Cooperative INDEPENDENT INTERPRETATIONS: conveyor monitor: (As interpreted by myself): - An order was placed for continuous cardiac monitoring - Patient was noted to be in sinus rhythm with a rate of 75 EKG: (As interpreted by myself): Rate: 73 Rhythm: Normal sinus rhythm Intervals: Within normal limits ST changes: No ST elevation Time: 2320 Chest x-ray: (As interpreted by myself): No acute disease Interventions provided in ED: - IV fluid bolus, aspirin Medical Decision Making: IV was established and lab work obtained, patient was placed on cafeteria monitor. Lab work shows no leukocytosis, hemoglobin is normal, platelet count is normal, CMP does not show any evidence of any acute/critical findings. Troponin is negative. Lipase is mildly elevated which appears to be consistent with patient's previous lab work. Patient denies any abdominal pain. CT angiography of the chest was obtained given the patient's recent postoperative status to rule out PE, this does not show any evidence of pulmonary embolism. CT imaging of the head was also obtained given the patient's complaint of headache and dizziness. This shows a nonspecific hypodensity in the left temporal lobe for which the interpreting radiologist recommended MRI imaging be obtained for further assessment. On my reevaluation the patient states she is feeling improved from previous following IV fluids. She declined any analgesia. I discussed CT imaging findings with the patient and with her family at the bedside. At this time patient is in agreement for admission for further testing to determine with hypodensity on the CT imaging might represent. Patient does not have any focal deficits on my evaluation. I discussed the patient's presentation with the on-call hospitalist, Dr. Corrigan, and the patient was placed for admission in stable condition. Consultants/Discussions held with other healthcare providers: - Hospitalist, Dr. Corrigan Disposition discussion held by myself with: - Patient and family at bedside Diagnosis: 1. Lightheaded sensation/presyncopal sensation, acute 2. Abnormal CT imaging of the head, acute Disposition: Admission Leon Holt DO Emergency Medicine Past Med/Surg History Problem List (Updated 08/03/25 @ 03:27 by Leon Holt DO) Episodic lightheadedness (Acute) Tobacco abuse Overweight Dyslipidemia CAD (coronary artery disease) Acute chest pain (Acute) Ovarian cyst (Chronic) Migraines (Chronic) Left-sided chest wall pain (Acute) STD (female) (Acute) Asthma (Chronic) ACS (acute coronary syndrome) CAD S/P percutaneous coronary angioplasty Social History Smoking Status: Former smoker Tobacco Type: E-cigarettes / Vaping Second Hand Exposure: Yes; Do You Dip or Chew Tobacco: No; Hx Alcohol Use: Yes Hx Substance Use: No Preferred Language: Croatian Communication Ability: Effective Courtesy Bus Driver Required: No Beliefs That Will Affect Care: None Current Living Situation: Family Feels Safe at Home: Yes Assistive Devices: Glasses Allergies Allergies Allergy/AdvReac Type Severity Reaction Status Date / Time ATHLETIC TAPE AdvReac SKIN RAYMUNDO Uncoded 08/28/23 23:38 Home Meds Home Medications Medication Instructions Recorded Confirmed albuterol sulfate 90 mcg/actuation 2 puff inhalation Q4 PRN 02/10/19 08/03/25 aerosol inhaler cough/wheeze/sob atorvastatin 80 mg tablet 80 mg PO QAM 02/10/19 08/03/25 metoprolol succinate 25 mg 12.5 mg PO QAM 02/10/19 08/03/25 tablet,extended release 24 hr nitroglycerin 0.4 mg sublingual 0.4 mg sublingual .EVERY 5 MIN PRN 02/10/19 08/03/25 tablet chestpain polyethylene glycol 3350 17 17 g PO DAILY 02/22/21 08/03/25 gram/dose oral powder (Miralax) aspirin 81 mg tablet,delayed 81 mg PO QAM 08/03/25 08/03/25 release bupropion HCl 300 mg 24 hr tablet, 300 mg PO QAM 08/03/25 08/03/25 extended release fluticasone fur. 100 mcg-umeclid 1 inh inhalation QAM 08/03/25 08/03/25 62.5 mcg-vilant 25 mcg inhalat.powder (Trelegy Ellipta) montelukast 10 mg tablet 10 mg PO QAM 08/03/25 08/03/25 omeprazole 20 mg capsule,delayed 20 mg PO AMHS 08/03/25 08/03/25 release oxycodone 5 mg tablet 5 mg PO Q4H PRN pain,severe 08/03/25 08/03/25 tramadol 50 mg tablet 50 mg PO BID PRN Severe Pain 08/03/25 08/03/25 (Scale Score 7-10) Results & Data (ED) Vital Signs Vital Signs - 24 hr 08/02/25 23:20 08/02/25 23:20 08/02/25 23:25 Temperature 36.4 C L Temperature Source Oral Pulse Rate 67 71 Pulse Rate [Apical] Pulse Rhythm Regular Pulse Rhythm [Apical] Pulse Strength Normal Pulse Strength [Apical] Respiratory Rate 18 Respiratory Effort / Characteristics Non-Labored Spontaneous Respiratory Depth Normal Respiratory Pattern Regular Blood Pressure 123/76 Blood Pressure [Left Arm] Blood Pressure Mean 91 Blood Pressure Mean [Left Arm] Pulse Oximetry 97 97 Oxygen Delivery Method Room Air Room Air Sepsis Recent Fever Within 48 Hours No Sepsis New/Unexplained Change in Mental Status No Sepsis Action Taken by Nursing No Action Required 08/02/25 23:41 08/03/25 00:48 08/03/25 02:21 Temperature Temperature Source Pulse Rate Pulse Rate [Apical] 80 85 Pulse Rhythm Pulse Rhythm [Apical] Regular Regular Pulse Strength Pulse Strength [Apical] Normal Normal Respiratory Rate 18 16 Respiratory Effort / Characteristics Non-Labored Spontaneous Non-Labored Spontaneous Respiratory Depth Normal Normal Respiratory Pattern Regular Regular Blood Pressure Blood Pressure [Left Arm] 108/76 114/69 Blood Pressure Mean Blood Pressure Mean [Left Arm] 86 84 Pulse Oximetry 93 96 Oxygen Delivery Method Room Air Room Air Room Air Sepsis Recent Fever Within 48 Hours Sepsis New/Unexplained Change in Mental Status Sepsis Action Taken by Nursing 08/03/25 03:15 Temperature Temperature Source Pulse Rate 74 Pulse Rate [Apical] Pulse Rhythm Pulse Rhythm [Apical] Pulse Strength Pulse Strength [Apical] Respiratory Rate Respiratory Effort / Characteristics Respiratory Depth Respiratory Pattern Blood Pressure Blood Pressure [Left Arm] Blood Pressure Mean Blood Pressure Mean [Left Arm] Pulse Oximetry Oxygen Delivery Method Sepsis Recent Fever Within 48 Hours Sepsis New/Unexplained Change in Mental Status Sepsis Action Taken by Nursing Laboratory Data 08/02/25 23:20 08/02/25 23:20 Lab Results 08/02/25 Range/Units 23:20 WBC 8.81 (4.8-10.8) K/ul RBC 4.25 (4.20-5.40) M/uL Hgb 12.5 (12.0-16.0) g/dL Hct 38.9 (37.0-47.0) % MCV 91.5 (80.0-100.0) fL MCH 29.4 (25.0-34.0) pg MCHC 32.1 (32.0-36.0) g/dL RDW Std Deviation 46.2 (36.4-46.3) fL RDW Coeff of Mauricio 13.8 (11.5-14.5) % Plt Count 260 (130-400) K/uL MPV 11.3 (9.4-12.4) fL Immature Gran % (Auto) 0.3 % Neut % (Auto) 68.5 % Lymph % (Auto) 22.4 % [place] % (Auto) 5.3 % Eos % (Auto) 2.8 % Baso % (Auto) 0.7 % Neut # (Auto) 6.03 (1.40-6.50) K/uL Lymph # (Auto) 1.97 (1.20-3.40) K/uL [place] # (Auto) 0.47 (0.11-0.59) K/uL Eos # (Auto) 0.25 (0.00-0.50) K/uL Baso # (Auto) 0.06 (0.00-0.20) K/uL Immature Gran # (Auto) 0.03 (0.01-0.20) K/uL PT 9.9 (9.0-12.0) Seconds INR 0.9 (0.9-1.1) Sodium 140 (136-145) mmol/L Potassium 3.5 (3.5-5.1) mmol/L Chloride 107 (98-107) mmol/L Carbon Dioxide 25 (21-32) mmol/L Anion Gap 8 (3-11) BUN 12 (6-23) mg/dl Creatinine 0.82 (0.6-1.2) mg/dl Est Cr Clr Drug Dosing 84.9 ml/min eGFR 85.48 BUN/Creatinine Ratio 14.6 (10-20) Glucose 106 H (70-99(Fasting)) mg/dl Calcium 9.2 (8.6-10.3) mg/dl Total Bilirubin 0.3 (0.2-1.0) mg/dl AST 25 (13-39) U/L ALT 32 (7-52) U/L Alkaline Phosphatase 97 (34-104) U/L Troponin I High Sens 3.3 (0-14) pg/ml Total Protein 7.0 (6.0-8.3) gm/dl Albumin 4.0 (3.4-5.0) gm/dl Globulin 3.0 (2.5-4.0) gm/dl Albumin/Globulin Ratio 1.3 (0.9-2) Lipase 110 H (11-82) U/L Administered Medications Discontinued Medications Aspirin (Aspirin Chew 324 Mg) 324 mg PO NOW STA Stop: 08/03/25 02:57 Last Admin: 08/03/25 03:03 Dose: 324 mg Documented By: abl Sodium Chloride (Nss) 500 mls @ 999 mls/hr IV .Q31M ONE Stop: 08/02/25 23:55 Last Infusion: 08/03/25 00:24 Dose: Infused Documented By: abl Admin: 08/02/25 23:37 Dose: 999 mls/hr Documented By: abl Ioversol (Optiray 320 125ml) 120 ml IV ONCE ONE Stop: 08/02/25 23:31 Last Admin: 08/02/25 23:30 Dose: 120 ml Documented By: BRM Imaging Data Radiologist's Impression: Chest X-Ray 08/02/25 23:19 Exam(s): XR CXR 1 VIEW EXAM: XR Chest, 1 View CLINICAL HISTORY: Reason for exam: dizzy. TECHNIQUE: Frontal view of the chest. COMPARISON: 12/09/2024. FINDINGS: There is a poor inspiratory effort. Lungs: No consolidation. Pleural space: No pleural effusion is seen. No pneumothorax. Heart: The heart is normal in size.. Mediastinum: Unremarkable.. Bones/joints: Unremarkable.. IMPRESSION: Poor inspiratory effort. No acute pulmonary disease. Electronically signed by: Dk Miller MD 08/03/25 01:23 AM Chest CTA 08/02/25 23:25 EXAM: CT angio chest PE protocol CLINICAL HISTORY: PE TECHNIQUE: Contiguous axial images were obtained from the neck base through the upper abdomen following intravenous administration of iodinated contrast material. Angiographic images were processed, 3D MIP images were acquired for interpretation. If IV contrast material had not been administered, the likelihood of detecting abnormalities relevant to the patient's condition would have been substantially decreased. Coronal and sagittal 3-D MIPs were likewise performed and indicated to increase the sensitivity of detectin diffuse clinically relevant pathology. CT scan was performed according to ALARA (as low as reasonably achievable). 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 FINDINGS: Diffuse ground-glass hase with subpleural atelectasis are noted involving dependent portion of both lower lobes - suggest possibility of due to insufficient inspiration. Adequate contrast bolus without evidence of pulmonary embolism. The central airways are patent. Rest of lungs are clear. No pleural effusion. The heart, aorta, and pulmonary arteries are of normal size and configuration. There are coronary artery and aortic atherosclerotic calcifications. No pericardial effusion is identified. The thyroid is unremarkable. No mediastinal, hilar, or axillary lymphadenopathy is noted. No suspicious lytic or sclerotic osseous lesions are identified. IMPRESSION: Diffuse ground-glass hase with subpleural atelectasis are noted involving dependent portion of both lower lobes - suggest possibility of due to insufficient inspiration. No evidence of pulmonary embolism or pulmonary disease. No other new interval abnormality since prior study. Electronically signed by Topher Fernandez 08-03-2025 01:[address] 08/02/25 23:25 EXAM: CT head/brain wo con CLINICAL HISTORY: Headache. TECHNIQUE: Axial non-contrast CT scan of the brain was performed from the skull base to the high parietal region in axial, sagittal and coronal reconstructions. One of the following dose reduction techniques were utilized for this exam: Automated exposure control, adjustment of the mA and/or kV according to patient size, use of iterative reconstruction. COMPARISON: CT angio head, dated 12/09/2024. FINDINGS: Brain Parenchyma: A small hypodensity seen in the left temporal lobe was not obvious in the prior images and needs further evaluation with MRI DWI images if clinically required. Otherwise, no acute territorial infarct. No evidence of acute hemorrhage or mass effect. Ventricular System: Ventricles are normal in size and configuration. No evidence of hydrocephalus or ventricular enlargement. Subarachnoid Spaces: Normal sulci and cisterns. No evidence of subarachnoid hemorrhage or extra-axial fluid collections. Cerebellum and Brainstem: No masses, lesions, or areas of abnormal density. Orbits: Normal appearance of the globes, optic nerves, and extraocular muscles. No evidence of orbital masses or abnormal density. Sinuses: Right maxillary sinus small retention cyst and mild mucosal thickening. Mucosal thickening of the posterior right ethmoidal air cells with frothy secretions. Mild mucosal thickening of the right side of the sphenoid sinus. No air-fluid level. Mastoid Air Cells: Clear mastoid air cells. No evidence of mastoiditis. Skull: Normal skull morphology. IMPRESSION: 1. A small hypodensity seen in the left temporal lobe was not obvious in the prior images and needs further evaluation with MRI DWI images if clinically required. 2. Otherwise, no acute territorial infarct or intracranial hemorrhage. 3. Right maxillary sinus small retention cyst and mild mucosal thickening, mucosal thickening of the posterior right ethmoidal air cells with frothy secretions and mild mucosal thickening of the right side of the sphenoid sinus. Interval new finding . Electronically signed by Oz Peck 08-03-2025 02:42 AM Discharge Plan Visit Data Chief Complaint: Dizziness Stated Complaint: SHOULDER SURG WED, DIZZY, NAUSEA ED Provider: Leon Holt Discharge Problem: Episodic lightheadedness Patient Disposition: Admitted As Inpatient Condition: Fair Forms Stand Alone Forms: My [facility] Prescriptions Prescriptions: No Action atorvastatin 80 mg tablet 80 mg PO QAM nitroglycerin 0.4 mg tablet, sublingual 0.4 mg sublingual .EVERY 5 MIN PRN (Reason: chestpain) metoprolol succinate 25 mg tablet extended release 24 hr 12.5 mg PO QAM albuterol sulfate 90 mcg/actuation HFA aerosol inhaler 2 puff inhalation Q4 PRN (Reason: cough/wheeze/sob) polyethylene glycol 3350 [Miralax] 17 gram/dose Powder 17 g PO DAILY Rx Instructions: may increase to twice daily if needed aspirin 81 mg tablet,delayed release (DR/EC) 81 mg PO QAM montelukast 10 mg tablet 10 mg PO QAM bupropion HCl 300 mg tablet extended release 24 hr 300 mg PO QAM Trelegy Ellipta 100-62.5-25 mcg blister with device 1 inh INHALATION QAM omeprazole 20 mg capsule,delayed release(DR/EC) 20 mg PO AMHS tramadol 50 mg tablet 50 mg PO BID PRN (Reason: Severe Pain (Scale Score 7-10)) oxycodone 5 mg Tablet 5 mg PO Q4H PRN (Reason: pain,severe) Referrals Referrals: Nel Lin PA-C [Primary Care Provider] -
[2025-08-02] MEDS: OPTIRAY 320 125ml IV ONE (23:30)
[2025-08-02] MEDS: SODIUM CHLORIDE 0.9% 500 ML IV ONE (23:37)
[2025-08-02 23:54] LABS: Hematocrit (blood only) 38.9 % (37.0-47.0); Hemoglobin 12.5 g/dL (12.0-16.0); Immature Granulocytes # (auto) 0.03 K/uL (0.01-0.20); Immature Granulocytes % (auto) 0.3 %; Mean Corpuscular Hemoglobin 29.4 pg (25.0-34.0); Mean Corpuscular Volume 91.5 fL (80.0-100.0); Platelet Count 260 K/uL (130-400); RDW Standard Deviation 46.2 fL (36.4-46.3); Red Blood Count 4.25 M/uL (4.20-5.40); White Blood Count 8.81 K/ul (4.8-10.8)
[2025-08-03 00:12] LABS: Alanine Aminotransferase 32.0 U/L (7-52); Albumin Globulin Ratio 1.3 (0.9-2); Albumin Level 4.0 gm/dl (3.4-5.0); Alkaline Phosphatase 97.0 U/L (34-104); Anion Gap 8.0 (3-11); Bilirubin,Total 0.3 mg/dl (0.2-1.0); Blood Urea Nitrogen 12.0 mg/dl (6-23); Calcium 9.2 mg/dl (8.6-10.3); Carbon Dioxide 25.0 mmol/L (21-32); Chloride 107.0 mmol/L (98-107); Creatinine Clr Calc Pharmacy 84.9 ml/min; Globulin 3.0 gm/dl (2.5-4.0); Glucose 106.0 mg/dl (70-99(Fasting)); Lipase 110.0 U/L (11-82); Potassium 3.5 mmol/L (3.5-5.1); Sodium 140.0 mmol/L (136-145); Total Protein 7.0 gm/dl (6.0-8.3)
[2025-08-03 00:27] LABS: INR 0.9 (0.9-1.1); Prothrombin Time 9.9 Seconds (9.0-12.0)
--- NOTE | 2025-08-03 01:24 | XRay Report ---
Exam(s): XR CXR 1 VIEW EXAM: XR Chest, 1 View CLINICAL HISTORY: Reason for exam: dizzy. TECHNIQUE: Frontal view of the chest. COMPARISON: 12/09/2024. FINDINGS: There is a poor inspiratory effort. Lungs: No consolidation. Pleural space: No pleural effusion is seen. No pneumothorax. Heart: The heart is normal in size.. Mediastinum: Unremarkable.. Bones/joints: Unremarkable.. IMPRESSION: Poor inspiratory effort. No acute pulmonary disease. Electronically signed by: Dk Miller MD 08/03/25 01:23 AM
--- NOTE | 2025-08-03 01:34 | CT Scan Report ---
EXAM: CT angio chest PE protocol CLINICAL HISTORY: PE TECHNIQUE: Contiguous axial images were obtained from the neck base through the upper abdomen following intravenous administration of iodinated contrast material. Angiographic images were processed, 3D MIP images were acquired for interpretation. If IV contrast material had not been administered, the likelihood of detecting abnormalities relevant to the patient's condition would have been substantially decreased. Coronal and sagittal 3-D MIPs were likewise performed and indicated to increase the sensitivity of detectin diffuse clinically relevant pathology. CT scan was performed according to ALARA (as low as reasonably achievable). 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 FINDINGS: Diffuse ground-glass hase with subpleural atelectasis are noted involving dependent portion of both lower lobes - suggest possibility of due to insufficient inspiration. Adequate contrast bolus without evidence of pulmonary embolism. The central airways are patent. Rest of lungs are clear. No pleural effusion. The heart, aorta, and pulmonary arteries are of normal size and configuration. There are coronary artery and aortic atherosclerotic calcifications. No pericardial effusion is identified. The thyroid is unremarkable. No mediastinal, hilar, or axillary lymphadenopathy is noted. No suspicious lytic or sclerotic osseous lesions are identified. IMPRESSION: Diffuse ground-glass hase with subpleural atelectasis are noted involving dependent portion of both lower lobes - suggest possibility of due to insufficient inspiration. No evidence of pulmonary embolism or pulmonary disease. No other new interval abnormality since prior study. Electronically signed by Topher Fernandez 08-03-2025 01:33 AM
--- NOTE | 2025-08-03 02:43 | CT Scan Report ---
EXAM: CT head/brain wo con CLINICAL HISTORY: Headache. TECHNIQUE: Axial non-contrast CT scan of the brain was performed from the skull base to the high parietal region in axial, sagittal and coronal reconstructions. One of the following dose reduction techniques were utilized for this exam: Automated exposure control, adjustment of the mA and/or kV according to patient size, use of iterative reconstruction. COMPARISON: CT angio head, dated 12/09/2024. FINDINGS: Brain Parenchyma: A small hypodensity seen in the left temporal lobe was not obvious in the prior images and needs further evaluation with MRI DWI images if clinically required. Otherwise, no acute territorial infarct. No evidence of acute hemorrhage or mass effect. Ventricular System: Ventricles are normal in size and configuration. No evidence of hydrocephalus or ventricular enlargement. Subarachnoid Spaces: Normal sulci and cisterns. No evidence of subarachnoid hemorrhage or extra-axial fluid collections. Cerebellum and Brainstem: No masses, lesions, or areas of abnormal density. Orbits: Normal appearance of the globes, optic nerves, and extraocular muscles. No evidence of orbital masses or abnormal density. Sinuses: Right maxillary sinus small retention cyst and mild mucosal thickening. Mucosal thickening of the posterior right ethmoidal air cells with frothy secretions. Mild mucosal thickening of the right side of the sphenoid sinus. No air-fluid level. Mastoid Air Cells: Clear mastoid air cells. No evidence of mastoiditis. Skull: Normal skull morphology. IMPRESSION: 1. A small hypodensity seen in the left temporal lobe was not obvious in the prior images and needs further evaluation with MRI DWI images if clinically required. 2. Otherwise, no acute territorial infarct or intracranial hemorrhage. 3. Right maxillary sinus small retention cyst and mild mucosal thickening, mucosal thickening of the posterior right ethmoidal air cells with frothy secretions and mild mucosal thickening of the right side of the sphenoid sinus. Interval new finding . Electronically signed by Oz Peck 08-03-2025 02:42 AM
[2025-08-03] MEDS: ASPIRIN CHEW 324 MG PO STA (03:03)
--- NOTE | 2025-08-03 04:17 | History & Physical Report ---
Date of Service August 03, 2025 Assessment & Plan (1) Dizziness: Plan: 55-year-old female with past medical significant for dyslipidemia, COPD, allergic rhinitis, CAD, vertigo, migraine, tobacco use disorder, presents with dizziness. Patient had right arthroscopy for rotator cuff shoulder and also right bicep tenotomy and subacromial decompression last Monday. Tonight when she was taking the bandage out of her shoulder she suddenly felt very dizzy, hot and nauseous. She sat down but her symptoms persisted and she decided come to the hospital. On the way she had headache. Currently all symptoms resolved. She is ambulating okay. Denies any blurred vision or double vision. No runny nose or sore throat. No cough. No chest pain. No palpitations. No shortness of breath. Currently no nausea. No abdominal pain. Hemodynamics are okay. Dizziness Nausea and felt hot and had headache happened when she was taking of the bandage from the recent right shoulder surgery Possible from pain Currently symptoms resolved IV fluids Pain control CT head showing questionable hypodense lesion in left temporal region Will follow-up with MRI scan Will also follow echocardiogram and cardiac enzymes Close monitoring telemetry History of CAD On aspirin, statin and metoprolol succinate COPD Continue home inhalers GERD On omeprazole Hyperlipidemia On statin DVT prophylaxis SCDs Disposition Telemetry Full code. History of Present Illness Chief Complaint: Dizziness Primary Care Provider: Nel Lin PA-C 55-year-old female with past medical significant for dyslipidemia, COPD, allergic rhinitis, CAD, vertigo, migraine, tobacco use disorder, presents with dizziness. Patient had right arthroscopy for rotator cuff shoulder and also right bicep tenotomy and subacromial decompression last Monday. Tonight when she was taking the bandage out of her shoulder she suddenly felt very dizzy, hot and nauseous. She sat down but her symptoms persisted and she decided come to the hospital. On the way she had headache. Currently all symptoms resolved. She is ambulating okay. Denies any blurred vision or double vision. No runny nose or sore throat. No cough. No chest pain. No palpitations. No shortness of breath. Currently no nausea. No abdominal pain. Hemodynamics are okay. Past medical history.. As mentioned above. Past surgical history. Right shoulder arthroscopy. Colonoscopy. Left heart catheterization. Hysteroscopy and endometrial ablation. Ligation of oviduct. Left wrist surgery. Social history. Some days smokes half a pack a day. Alcohol occasional. No drug use. Family history. Maternal aunt had breast cancer. Sister had breast cancer. Allergies Allergy/AdvReac Type Severity Reaction Status Date / Time adhesive tape AdvReac Unknown "athletic Verified 08/03/25 06:14 tape" -- skin gann Home Medications Medication Instructions Recorded Confirmed Type albuterol sulfate 90 mcg/actuation 2 puff inhalation Q4 PRN 02/10/19 08/03/25 History aerosol inhaler cough/wheeze/sob atorvastatin 80 mg tablet 80 mg PO QAM 02/10/19 08/03/25 History metoprolol succinate 25 mg 12.5 mg PO QAM 02/10/19 08/03/25 History tablet,extended release 24 hr nitroglycerin 0.4 mg sublingual 0.4 mg sublingual .EVERY 5 MIN PRN 02/10/19 08/03/25 History tablet chestpain polyethylene glycol 3350 17 17 g PO DAILY 02/22/21 08/03/25 History gram/dose oral powder (Miralax) aspirin 81 mg tablet,delayed 81 mg PO QAM 08/03/25 08/03/25 History release bupropion HCl 300 mg 24 hr tablet, 300 mg PO QAM 08/03/25 08/03/25 History extended release fluticasone fur. 100 mcg-umeclid 1 inh inhalation QAM 08/03/25 08/03/25 History 62.5 mcg-vilant 25 mcg inhalat.powder (Trelegy Ellipta) montelukast 10 mg tablet 10 mg PO QAM 08/03/25 08/03/25 History omeprazole 20 mg capsule,delayed 20 mg PO AMHS 08/03/25 08/03/25 History release oxycodone 5 mg tablet 5 mg PO Q4H PRN pain,severe 08/03/25 08/03/25 History tramadol 50 mg tablet 50 mg PO BID PRN Severe Pain 08/03/25 08/03/25 History (Scale Score 7-10) Past Med/Surg History Problem List (Updated 08/03/25 @ 04:21 by Steve Corrigan MD) Dizziness Episodic lightheadedness (Acute) Tobacco abuse Overweight Dyslipidemia CAD (coronary artery disease) Acute chest pain (Acute) Ovarian cyst (Chronic) Migraines (Chronic) Left-sided chest wall pain (Acute) STD (female) (Acute) Asthma (Chronic) ACS (acute coronary syndrome) CAD S/P percutaneous coronary angioplasty Social History Smoking Status: Current every day smoker Tobacco Type: Cigarettes Second Hand Exposure: Yes; Do You Dip or Chew Tobacco: No; Hx Alcohol Use: Yes Alcohol type: beer Hx Substance Use: No Preferred Language: Turkmen Communication Ability: Effective General Machine Operator Required: No Beliefs That Will Affect Care: None Current Living Situation: Family Feels Safe at Home: Yes Assistive Devices: Other Assistive Devices Comment: Sling Review of Systems Review of Systems: All systems reviewed & are unremarkable except as noted in HPI & below Physical Exam Physical Exam: General- Not in distress Head- atraumatic Eyes- PERRL.EOMI ENT- oropharynx clear Neck- supple, no JVD. Lungs- clear to auscultation no wheezing or crackles Heart- regular rhythm; no murmur, no gallop. Abdomen- normal bowel sounds, soft, nontender, no distension Extremities- no pretibial edema, right shoulder in sling.Right shoulder Surgical site no erythema or drainage seen Neuro- alert, oriented PERRL, EOMI; no facial palsy; no dysarthria; moves extremities Results & Data Results & Data Vital Signs (Past 12 Hours) Vital Signs Temp Pulse Pulse Resp BP BP Pulse Ox 08/03/25 03:42 73 20 126/66 97 08/03/25 03:15 74 08/03/25 02:21 85 16 114/69 96 08/03/25 00:48 80 18 108/76 93 08/02/25 23:41 08/02/25 23:25 71 08/02/25 23:20 97 08/02/25 23:20 36.4 C L 67 18 123/76 97 O2 Del Method 08/03/25 03:42 Room Air 08/03/25 03:15 08/03/25 02:21 Room Air 08/03/25 00:48 Room Air 08/02/25 23:41 Room Air 08/02/25 23:25 08/02/25 23:20 Room Air 08/02/25 23:20 Room Air Diagnostic Findings Laboratory Results WBC 8.81 K/ul (4.8-10.8) 08/02/25 23:20 RBC 4.25 M/uL (4.20-5.40) 08/02/25 23:20 Hgb 12.5 g/dL (12.0-16.0) 08/02/25 23:20 Hct 38.9 % (37.0-47.0) 08/02/25 23:20 MCV 91.5 fL (80.0-100.0) 08/02/25 23:20 MCH 29.4 pg (25.0-34.0) 08/02/25 23:20 MCHC 32.1 g/dL (32.0-36.0) 08/02/25 23:20 RDW Std Deviation 46.2 fL (36.4-46.3) 08/02/25 23:20 RDW Coeff of Mauricio 13.8 % (11.5-14.5) 08/02/25 23:20 Plt Count 260 K/uL (130-400) 08/02/25 23:20 MPV 11.3 fL (9.4-12.4) 08/02/25 23:20 Immature Gran % (Auto) 0.3 % 08/02/25 23:20 Neut % (Auto) 68.5 % 08/02/25 23:20 Lymph % (Auto) 22.4 % 08/02/25 23:20 Redwood % (Auto) 5.3 % 08/02/25 23:20 Eos % (Auto) 2.8 % 08/02/25 23:20 Baso % (Auto) 0.7 % 08/02/25 23:20 Neut # (Auto) 6.03 K/uL (1.40-6.50) 08/02/25 23:20 Lymph # (Auto) 1.97 K/uL (1.20-3.40) 08/02/25 23:20 Redwood # (Auto) 0.47 K/uL (0.11-0.59) 08/02/25 23:20 Eos # (Auto) 0.25 K/uL (0.00-0.50) 08/02/25 23:20 Baso # (Auto) 0.06 K/uL (0.00-0.20) 08/02/25 23:20 Immature Gran # (Auto) 0.03 K/uL (0.01-0.20) 08/02/25 23:20 PT 9.9 Seconds (9.0-12.0) 08/02/25 23:20 INR 0.9 (0.9-1.1) 08/02/25 23:20 Sodium 140 mmol/L (136-145) 08/02/25 23:20 Potassium 3.5 mmol/L (3.5-5.1) 08/02/25 23:20 Chloride 107 mmol/L (98-107) 08/02/25 23:20 Carbon Dioxide 25 mmol/L (21-32) 08/02/25 23:20 Anion Gap 8 (3-11) 08/02/25 23:20 BUN 12 mg/dl (6-23) 08/02/25 23:20 Creatinine 0.82 mg/dl (0.6-1.2) 08/02/25 23:20 Est Cr Clr Drug Dosing 84.9 ml/min 08/02/25 23:20 eGFR 85.48 08/02/25 23:20 BUN/Creatinine Ratio 14.6 (10-20) 08/02/25 23:20 Glucose 106 mg/dl (70-99(Fasting)) H 08/02/25 23:20 Calcium 9.2 mg/dl (8.6-10.3) 08/02/25 23:20 Total Bilirubin 0.3 mg/dl (0.2-1.0) 08/02/25 23:20 AST 25 U/L (13-39) 08/02/25 23:20 ALT 32 U/L (7-52) 08/02/25 23:20 Alkaline Phosphatase 97 U/L (34-104) 08/02/25 23:20 Troponin I High Sens 3.3 pg/ml (0-14) 08/02/25 23:20 Total Protein 7.0 gm/dl (6.0-8.3) 08/02/25 23:20 Albumin 4.0 gm/dl (3.4-5.0) 08/02/25 23:20 Globulin 3.0 gm/dl (2.5-4.0) 08/02/25 23:20 Albumin/Globulin Ratio 1.3 (0.9-2) 08/02/25 23:20 Lipase 110 U/L (11-82) H 08/02/25 23:20 Impressions Chest X-Ray 08/02/25 23:19 Exam(s): XR CXR 1 VIEW EXAM: XR Chest, 1 View CLINICAL HISTORY: Reason for exam: dizzy. TECHNIQUE: Frontal view of the chest. COMPARISON: 12/09/2024. FINDINGS: There is a poor inspiratory effort. Lungs: No consolidation. Pleural space: No pleural effusion is seen. No pneumothorax. Heart: The heart is normal in size.. Mediastinum: Unremarkable.. Bones/joints: Unremarkable.. IMPRESSION: Poor inspiratory effort. No acute pulmonary disease. Electronically signed by: Dk Miller MD 08/03/25 01:23 AM Chest CTA 08/02/25 23:25 EXAM: CT angio chest PE protocol CLINICAL HISTORY: PE TECHNIQUE: Contiguous axial images were obtained from the neck base through the upper abdomen following intravenous administration of iodinated contrast material. Angiographic images were processed, 3D MIP images were acquired for interpretation. If IV contrast material had not been administered, the likelihood of detecting abnormalities relevant to the patient's condition would have been substantially decreased. Coronal and sagittal 3-D MIPs were likewise performed and indicated to increase the sensitivity of detectin diffuse clinically relevant pathology. CT scan was performed according to ALARA (as low as reasonably achievable). 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 FINDINGS: Diffuse ground-glass hase with subpleural atelectasis are noted involving dependent portion of both lower lobes - suggest possibility of due to insufficient inspiration. Adequate contrast bolus without evidence of pulmonary embolism. The central airways are patent. Rest of lungs are clear. No pleural effusion. The heart, aorta, and pulmonary arteries are of normal size and configuration. There are coronary artery and aortic atherosclerotic calcifications. No pericardial effusion is identified. The thyroid is unremarkable. No mediastinal, hilar, or axillary lymphadenopathy is noted. No suspicious lytic or sclerotic osseous lesions are identified. IMPRESSION: Diffuse ground-glass hase with subpleural atelectasis are noted involving dependent portion of both lower lobes - suggest possibility of due to insufficient inspiration. No evidence of pulmonary embolism or pulmonary disease. No other new interval abnormality since prior study. Electronically signed by Topher Fernandez 08-03-2025 01:[address] 08/02/25 23:25 EXAM: CT head/brain wo con CLINICAL HISTORY: Headache. TECHNIQUE: Axial non-contrast CT scan of the brain was performed from the skull base to the high parietal region in axial, sagittal and coronal reconstructions. One of the following dose reduction techniques were utilized for this exam: Automated exposure control, adjustment of the mA and/or kV according to patient size, use of iterative reconstruction. COMPARISON: CT angio head, dated 12/09/2024. FINDINGS: Brain Parenchyma: A small hypodensity seen in the left temporal lobe was not obvious in the prior images and needs further evaluation with MRI DWI images if clinically required. Otherwise, no acute territorial infarct. No evidence of acute hemorrhage or mass effect. Ventricular System: Ventricles are normal in size and configuration. No evidence of hydrocephalus or ventricular enlargement. Subarachnoid Spaces: Normal sulci and cisterns. No evidence of subarachnoid hemorrhage or extra-axial fluid collections. Cerebellum and Brainstem: No masses, lesions, or areas of abnormal density. Orbits: Normal appearance of the globes, optic nerves, and extraocular muscles. No evidence of orbital masses or abnormal density. Sinuses: Right maxillary sinus small retention cyst and mild mucosal thickening. Mucosal thickening of the posterior right ethmoidal air cells with frothy secretions. Mild mucosal thickening of the right side of the sphenoid sinus. No air-fluid level. Mastoid Air Cells: Clear mastoid air cells. No evidence of mastoiditis. Skull: Normal skull morphology. IMPRESSION: 1. A small hypodensity seen in the left temporal lobe was not obvious in the prior images and needs further evaluation with MRI DWI images if clinically required. 2. Otherwise, no acute territorial infarct or intracranial hemorrhage. 3. Right maxillary sinus small retention cyst and mild mucosal thickening, mucosal thickening of the posterior right ethmoidal air cells with frothy secretions and mild mucosal thickening of the right side of the sphenoid sinus. Interval new finding . Electronically signed by Oz Peck 08-03-2025 02:42 AM ECG Additional Comments: ECG. Normal sinus rhythm with rate of 73. No significant changes found. Code Status & VTE Plan VTE Prophylaxis Plan VTE Prophylaxis will be ordered: Yes
[2025-08-03] MEDS ORDERED: ONDANSETRON INJ 2 MG/ML 2 ML VIAL IV PRN (05:53)
[2025-08-03] MEDS ORDERED: POLYETHYLENE (MIRALAX) 17 GM PACK PO PRN (05:53)
[2025-08-03] MEDS ORDERED: ALBUTEROL HFA 8 GM INHALER INH PRN (05:53)
[2025-08-03] MEDS ORDERED: HYDROmorphone INJ 0.5 MG/0.5 ML SYR IV PRN (05:53)
[2025-08-03] MEDS ORDERED: NITROGLYCERIN SL 0.4 MG/TAB TAB SL PRN (05:53)
[2025-08-03 06:07] VITALS: O2SAT 96
[2025-08-03] MEDS ORDERED: INFLUENZA VACC TS2025-26(6m+)/PF (IIV3) 0.5mL Syr IM ONE (06:30)
[2025-08-03 07:33] LABS: Hematocrit (blood only) 35.0 % (37.0-47.0); Hemoglobin 11.5 g/dL (12.0-16.0); Immature Granulocytes # (auto) 0.01 K/uL (0.01-0.20); Immature Granulocytes % (auto) 0.1 %; Mean Corpuscular Hemoglobin 30.2 pg (25.0-34.0); Mean Corpuscular Volume 91.9 fL (80.0-100.0); Platelet Count 210 K/uL (130-400); RDW Standard Deviation 46.1 fL (36.4-46.3); Red Blood Count 3.81 M/uL (4.20-5.40); White Blood Count 6.75 K/ul (4.8-10.8)
[2025-08-03] MEDS: SODIUM CHLORIDE 0.9% 1,000 ML IV SCH (07:43)
[2025-08-03 07:46] LABS: Anion Gap 6 (3-11); Blood Urea Nitrogen 13 mg/dl (6-23); Calcium 8.7 mg/dl (8.6-10.3); Carbon Dioxide 27 mmol/L (21-32); Chloride 108 mmol/L (98-107); Creatinine Clr Calc Pharmacy 98.9 ml/min; Glucose 95 mg/dl (70-99(Fasting)); Magnesium 1.8 mg/dl (1.7-2.4); Potassium 3.8 mmol/L (3.5-5.1); Sodium 141 mmol/L (136-145)
[2025-08-03] MEDS: FLUTICASONE FUROATE 100MCG 14 PUFFS/INHALER INH SCH (07:48)
[2025-08-03] MEDS: ASPIRIN 81 MG ECTAB PO SCH (07:48)
[2025-08-03] MEDS: MONTELUKAST SODIUM 10 MG TABLET PO SCH (07:48)
[2025-08-03] MEDS: UMECLIDINIUM/VILANTEROL 62.5/25MCG 7 PUFFS/INHALER INH SCH (07:48)
[2025-08-03] MEDS: ATORVASTATIN 40 MG TAB PO SCH (07:49)
[2025-08-03] MEDS: METOPROLOL SUCC 25MG EXT REL TAB PO SCH (07:49)
[2025-08-03] MEDS: POLYETHYLENE (MIRALAX) 17 GM PACK PO SCH (07:52)
[2025-08-03] MEDS ORDERED: NON-FORMULARY MEDICATION (Fluticasone-Umeclidin-Vilanter [Trelegy Ellipta] 100-62.5-25 mcg INH SCH (09:00)
[2025-08-03 11:23] VITALS: BP 104/67; PULSE 73; RESP 19; TEMP 97.7
[2025-08-03] MEDS: ACETAMINOPHEN 325 MG TAB PO PRN (11:27)
--- NOTE | 2025-08-03 12:52 | XCELERA ---
[id number]
[2025-08-03] MEDS: GADOBUTROL 65ML VIAL IV ONE (13:37)
--- NOTE | 2025-08-03 13:55 | Magnetic Resonance Report ---
EXAM: MR brain wo/w con CLINICAL HISTORY: Dizziness, hypodense lesion lt temporal on CT scan. TECHNIQUE: MRI of the brain was performed with and without intravenous contrast administration of 9cc Gadavist. Sequences obtained include pre-contrast and post-contrast T1-weighted, T2-weighted, FLAIR (Fluid-Attenuated Inversion Recovery), DWI (Diffusion-Weighted Imaging), and ADC (Apparent Diffusion Coefficient) sequences. COMPARISON: The previous CT dated 08/01/2025 was reviewed. FINDINGS: A limited right ferromagnetic artifact is noted. Brain Parenchyma: No evidence of acute infarction or hemorrhage. Cruz-white matter differentiation is preserved. No abnormal signal intensity lesions were identified. Post-Contrast Findings: No abnormal enhancement of the brain parenchyma or meninges. Ventricles and Sulci: The ventricular system is within normal limits without evidence of hydrocephalus. Sulci and cisternal spaces are age-appropriate. Brainstem and Cerebellum: Normal appearance of the brainstem and cerebellum without focal lesions or abnormal enhancement. Vessels: Intracranial vessels appear normal without evidence of vascular malformations or aneurysms. Skull and Calvarium: No evidence of skull vault lesions or abnormal marrow signal within the calvarium. Mild bilateral maxillary and right ethmoidal sinusitis. IMPRESSION: 1. Normal MRI of the brain with and without contrast. 2. No evidence of acute intracranial pathology or abnormal contrast enhancement. Electronically signed by Oz Peck 08-03-2025 13:55 PM
--- NOTE | 2025-08-03 14:12 | Discharge Summary ---
Date of Service August 03, 2025 Admission HPI Per Admitting Provider 55-year-old female with past medical significant for dyslipidemia, COPD, allergic rhinitis, CAD, vertigo, migraine, tobacco use disorder, presents with dizziness. Patient had right arthroscopy for rotator cuff shoulder and also right bicep tenotomy and subacromial decompression last Monday. Tonight when she was taking the bandage out of her shoulder she suddenly felt very dizzy, hot and nauseous. She sat down but her symptoms persisted and she decided come to the hospital. On the way she had headache. Currently all symptoms resolved. She is ambulating okay. Denies any blurred vision or double vision. No runny nose or sore throat. No cough. No chest pain. No palpitations. No shortness of breath. Currently no nausea. No abdominal pain. Hemodynamics are okay. Past medical history.. As mentioned above. Past surgical history. Right shoulder arthroscopy. Colonoscopy. Left heart catheterization. Hysteroscopy and endometrial ablation. Ligation of oviduct. Left wrist surgery. Social history. Some days smokes half a pack a day. Alcohol occasional. No drug use. Family history. Maternal aunt had breast cancer. Sister had breast cancer. Admission Exam Per Admitting Provider General- Not in distress Head- atraumatic Eyes- PERRL.EOMI ENT- oropharynx clear Neck- supple, no JVD. Lungs- clear to auscultation no wheezing or crackles Heart- regular rhythm; no murmur, no gallop. Abdomen- normal bowel sounds, soft, nontender, no distension Extremities- no pretibial edema, right shoulder in sling.Right shoulder Surgical site no erythema or drainage seen Neuro- alert, oriented PERRL, EOMI; no facial palsy; no dysarthria; moves extremities Principal Diagnosis Dizziness, likely vasovagal Discharge Exam Constitutional: WD/WN, vitals as above, NAD, sitting up in bed, pleasant, conversing easily Respiratory: normal respiratory effort, lungs clear to auscultation, no wheeze, rales, rhonchi. Normal insp/exp effort, no accessory muscle use Cardiovascular: RRR, no murmur, no edema Vessels: no JVD or carotid bruit Chest: normal inspection of chest Abdomen: normal bowel sounds, soft, nontender, no hepatosplenomegaly Musculoskeletal: Right arm on sling. Neurologic: PERRL, EOMI, accommodation nl, no face palsy, no dysarthria CN's II- XI intact bilaterally and moves all extremities Psychiatric: A+Ox3, euthymic affect Discharge Data Allergies Allergy/AdvReac Type Severity Reaction Status Date / Time adhesive tape AdvReac Unknown "athletic Verified 08/03/25 06:14 tape" -- skin gann Consultations 08/03/25 02:53 ED Decision to Admit Stat Ordered Studies 08/02/25 23:25 CT angio chest PE protocol Stat CT head/brain wo con Stat 08/03/25 05:53 MRI Brain [MR brain wo/w con] Urgent Hospital Course (1) Dizziness: 55-year-old female with past medical significant for dyslipidemia, COPD, allergic rhinitis, CAD, vertigo, migraine, tobacco use disorder, presents with dizziness. Patient had right arthroscopy for rotator cuff shoulder and also right bicep tenotomy and subacromial decompression last Monday. Tonight when she was taking the bandage out of her shoulder she suddenly felt very dizzy, hot and nauseous. She sat down but her symptoms persisted and she decided come to the hospital. The symptoms had resolved after arrival to the ED. CT head without contrast showed questionable hypodense lesion in left temporal region MRI brain did not show any acute findings. Echocardiogram showed normal heart function. Telemetry did not show any arrhythmia. Patient was discharged home. No medication changes were done Total Time Total Time Spent Total Time Spent (In Minutes): 45 Total Time Includes: Examination of the Patient, Discharge Planning, Medication Reconciliation, Communication With Other Providers and Other Discharge Plan Discharge Items Patient Disposition: Home - Self-Care Reason For Visit: DIZZINESS Discharge Diagnosis: Dizziness, likely vasovagal Condition on Discharge: Fair Activity: Resume your previous activity Non-emergency contact: Primary Care Provider Call non-emergency contact if: you have any medication questions and your symptoms worsen Follow-up/Referrals: Nel Lin PA-C [Primary Care Provider] - Diet: Regular Addtl Attending Provider Instructions: You were admitted to the hospital due to dizziness. The CT of the head had shown questionable lesion on the left temporal area. However, the MRI showed normal findings with no abnormal findings in your brain. Echocardiogram showed normal heart function. Please continue to take your medication as prescribed before Pending Studies at Discharge: No Stand-Alone Forms: My [facility], Smoking Cessation Medications and DC Order Prescriptions: Continued atorvastatin 80 mg tablet 80 mg PO QAM nitroglycerin 0.4 mg tablet, sublingual 0.4 mg sublingual .EVERY 5 MIN PRN (Reason: chestpain) metoprolol succinate 25 mg tablet extended release 24 hr 12.5 mg PO QAM albuterol sulfate 90 mcg/actuation HFA aerosol inhaler 2 puff inhalation Q4 PRN (Reason: cough/wheeze/sob) polyethylene glycol 3350 [Miralax] 17 gram/dose Powder 17 g PO DAILY Rx Instructions: may increase to twice daily if needed aspirin 81 mg tablet,delayed release (DR/EC) 81 mg PO QAM montelukast 10 mg tablet 10 mg PO QAM bupropion HCl 300 mg tablet extended release 24 hr 300 mg PO QAM Trelegy Ellipta 100-62.5-25 mcg blister with device 1 inh INHALATION QAM omeprazole 20 mg capsule,delayed release(DR/EC) 20 mg PO AMHS tramadol 50 mg tablet 50 mg PO BID PRN (Reason: Severe Pain (Scale Score 7-10)) oxycodone 5 mg Tablet 5 mg PO Q4H PRN (Reason: pain,severe) Discharge Orders: Discharge Order (Routine); Ordered 08/03/25 Ordered By: Philip Pacheco Admission Data Admit Date/Time: 08/03/25 04:05 Attending Provider: Philip Pacheco Admit Provider: Steve Corrigan Primary Care Provider: Nel Lin Other Providers: Steve Corrigan
--- NOTE | 2025-08-03 20:08 | Electrocardiogram Report ---
Test Reason : Blood Pressure : */* mmHG Vent. Rate : 73 BPM Atrial Rate : 73 BPM P-R Int : 126 ms QRS Dur : 74 ms QT Int : 368 ms P-R-T Axes : 48 3 12 degrees QTcB Int : 405 ms Normal sinus rhythm Nonspecific T wave abnormality Abnormal ECG When compared with ECG of 09-Dec-2024 13:27, No significant change was found Confirmed by Elyssa Condon (Min) on 08/03/2025 8:08:14 PM Referred By: REFERRED SELF Confirmed By: Elyssa Condon
== END 2025-08-03 15:24 | disposition home or self-care (01) | DRG 149 ==
LOC: ED 23:15 → SUATTDRO 08-03 04:05 → 2S 08-03 04:05 → INTOOBSV 08-03 04:05 → 2S 08-03 05:24